=== PATIENT | female | born 1970 | race Caucasian/White ===

== ENCOUNTER 2016-07-28 11:01 | Emergency (ER) | payer BC ==
[2016-07-28] MEDS ORDERED: Ketorolac INJ* 60 MG/2 ML VIAL IM ONE (11:57)
--- NOTE | 2016-07-28 12:31 | RAD ---
INDICATION: Cough. Congestion. COMPARISON: September 30, 2013 TECHNIQUE: PA and lateral dual-energy views were obtained. FINDINGS: Bones/Soft Tissues: There are no acute bony findings. There is mild kyphoscoliosis. Cardiomediastinal: The cardiomediastinal silhouette is normal. Lungs: There are no infiltrates. Pleura: There are no pleural effusions. Other: None IMPRESSION: NO ACTIVE DISEASE.
[2016-07-28 12:57] VITALS: BP 132/72
--- NOTE | 2016-10-07 10:46 | ED ---
Influenza-Like Illness - HPI Summary HPI Summary: Patient presents with three days of sore throat, cough, and subjective fever. She has been using over the counter medication to manage her symptoms but worries she might have strep throat or pneumonia. She is eating and drinking without difficulty swallowing or breathing. - History of Current Complaint Chief Complaint: EDUpperRespComplaint Time Seen by Provider: 07/28/16 11:39 Hx Obtained From: Patient Onset/Duration: Gradual Onset, Lasting Days, Still Present Severity: Moderate Associated Signs & Symptoms: Cough, Sore Throat, Nasal Congestion Related Hx: Possible Flu/Infectious Exposure - Allergy/Home Medications Allergies/Adverse Reactions: Allergies Allergy/AdvReac Type Severity Reaction Status Date / Time No Known Allergies Allergy Verified 07/28/16 11:08 PMH/Surg Hx/FS Hx/Imm Hx Endocrine/Hematology History: Denies: Hx Diabetes Cardiovascular History: Reports: Hx Hypercholesterolemia, Hx Hypertension - ON MEDS Respiratory History: Reports: Hx Sleep Apnea - HX OF BEFORE BARIATRIC SURGER GI History: Reports: Hx Gastroesophageal Reflux Disease History: Reports: Other Problems/Disorders - stress incontinence Denies: Hx Renal Disease Musculoskeletal History: Reports: Other Musculoskeletal History - HX OF BACKACHES BEFORE BARIATRIC SURGERY IN SEPTEMBER Sensory History: Denies: Hx Contacts or Glasses, Hx Hearing Aid Opthamlomology History: Denies: Hx Contacts or Glasses Psychiatric History: Reports: Hx Depression - ON MEDICATION FOR - Cancer History Hx Chemotherapy: No Hx Radiation Therapy: No - Surgical History Surgery Procedure, Year, and Place: 1992-D&C X 2. 2009 D&C. 10/12/2013 LAPAROSCOPIC GASTRIC BYPASS, [facility] [place] Hx Anesthesia Reactions: No Infectious Disease History: No Infectious Disease History: Denies: Traveled Outside the [place] in Last 30 Days - Family History Known Family History: Positive: None - Social History Occupation: Employed Part-time Lives: With Family Alcohol Use: Occasionally Alcohol Amount: SOCIALLY Substance Use Type: Reports: None Hx Tobacco Use: Yes Smoking Status (MU): Never Smoked Tobacco Have You Smoked in the Last Year: No Review of Systems Positive: Chills, Fatigue. Negative: Fever Positive: Sore Throat, Nasal Discharge Negative: Chest Pain Positive: Cough. Negative: Shortness Of Breath Negative: Vomiting, Diarrhea, Nausea Negative: Myalgia Negative: Headache, Weakness All Other Systems Reviewed And Are Negative: Yes Physical Exam Triage Information Reviewed: Yes Vital Signs On Initial Exam: Initial Vitals Temp Pulse Resp BP Pulse Ox 98.2 F 64 16 137/76 100 07/28/16 11:09 07/28/16 11:09 07/28/16 11:09 07/28/16 11:09 07/28/16 11:09 Vital Signs Reviewed: Yes Appearance: Positive: Well-Appearing, No Pain Distress, Well-Nourished Skin: Positive: Warm, Skin Color Reflects Adequate Perfusion, Dry, Soft Head/Face: Positive: Normal Head/Face Inspection Eyes: Positive: EOMI, TRINI, Conjunctiva Clear ENT: Positive: Hearing grossly normal, Pharyngeal erythema, Nasal congestion, TMs normal. Negative: Tonsillar swelling, Tonsillar exudate, Trismus, Muffled/ hoarse voice Neck: Positive: Supple, Nontender, No Lymphadenopathy Respiratory/Lung Sounds: Positive: Clear to Auscultation, Breath Sounds Present Cardiovascular: Positive: RRR Abdomen Description: Positive: Nontender, Soft Bowel Sounds: Positive: Present Musculoskeletal: Negative: Edema Left, Edema Right Neurological: Positive: Sensory/Motor Intact, Alert, Oriented to Person Place, Time, [place] Bundle Intact Distally, Normal Gait Psychiatric: Positive: Affect/Mood Appropriate AVPU Assessment: Alert - [place] Coma Scale Coma Scale Total: 15 Diagnostics - Vital Signs Vital Signs Temp Pulse Resp BP Pulse Ox 07/28/16 12:55 98.2 F 64 20 132/72 07/28/16 11:09 98.2 F 64 16 137/76 100 - Laboratory Lab Results: Lab Results 07/28/16 Range/Units 11:12 Group A Strep Rapid Negative (Negative) Lab Statement: Any lab studies that have been ordered have been reviewed, and results considered in the medical decision making process. - Radiology No standard instances Xray Interpretation: No Acute Changes Radiology Interpretation Completed By: Radiologist Flu Symptom Course/Dx - Diagnoses Differential Diagnosis/HQI/PQRI: Positive: Bronchitis, Influenza, Pneumonia, Upper Respiratory Infection Provider Diagnoses: Pharyngitis Discharge - Discharge Plan Condition: Stable Disposition: HOME Patient Education Materials: Pharyngitis (ED) Referrals: Fredi Warren MD [Primary Care Provider] - Additional Instructions: Please treat your symptoms with over the counter medication. Follow-up with your PCP if your symptoms do not begin to improve in 3-5 days. Return to the emergency department if symptoms worsen.
== END 2016-07-28 12:55 | disposition home or self-care (01) ==
LOC: ED 11:01
DX: J02.9 Acute pharyngitis, unspecified (principal)
CPT/HCPCS: 71020; 87651; 96372; 99282; J1885

== ENCOUNTER 2016-10-22 17:24 | Emergency (ER) | payer BC ==
[2016-10-22] MEDS ORDERED: NS 0.9% 1000 ML* 2,000 ML IV ONE (17:34)
--- NOTE | 2016-10-22 18:07 | ED ---
Syncope/Near Syncope - HPI Summary HPI Summary: PT BIBA AFTER DRINKING ALCOHOL AND SITTING IN SUN ON A BOAT ALL DAY. PT PASSED OUT X2 HER DAUGHTER STATES, PT DIDN'T AROUSE FOR 5 MINS DURING FIRST SYNCOPAL EPISODE BUT WOKE RIGHT UP AFTER SECOND EPISODE. IT IS UNKNOWN AMOUNT OF ALCOHOL CONSUMED. DAUGHTER STATES AFTER FIRST SYNCOPAL EPISODE THEY PLACED HER IN THE WATER HOPING SHE WOULD AROUSE, BUT SHE DID NOT. UPON GETTING BACK INTO THE BOAT, SHE DID AROUSE AND WAS TALKING FOR APPROX [address] WAY [place], SHE HAD ANOTHER SYNCOPAL EPISODE AND SHE WAS ABLE TO BE AROUSED AGAIN BUT FOR A BRIEF PERIOD OF TIME. SHE IS A & O X 3 ON ARRIVAL TO THE ED, BUT TEARFUL. SHE STATES SHE IS DEHYDRATED. DENIES OTHER DRUG USE. SHE WAS OUT IN THE SUN FOR APPROX 4 HOURS PER HER DAUGHTER. SHE DENIES HEALTH PROBLEMS OTHER THAN PREVIOUS BARIATRIC SURGERY. PATIENT AND DAUGHTER BOTH STATE SHE DID NOT HIT HER HEAD OR HAVE ANY ASSOCIATED TRAUMA. - History Of Current Complaint Chief Complaint: EDGeneral Time Seen by Provider: 10/22/16 17:31 Hx Obtained From: Patient Onset/Duration: Sudden Onset Timing: Constant Context: Witnessed, Loss Of Consciousness Associated Head Trauma: No Aggravating Factor(s): Nothing Alleviating Factor(s): Spontaneous Resolution Associated Signs And Symptoms: Lightheadedness - Risk Factors Cardiac Risk Factors: Negative Dysrhythmia Risk Factors: Age Greater Than 45 Risk Factor(s): Negative - Allergies/Home Medications Allergies/Adverse Reactions: Allergies Allergy/AdvReac Type Severity Reaction Status Date / Time No Known Allergies Allergy Verified 07/28/16 11:08 PMH/Surg Hx/FS Hx/Imm Hx Previously Healthy: Yes Endocrine/Hematology History: Denies: Hx Diabetes Cardiovascular History: Reports: Hx Hypercholesterolemia, Hx Hypertension - ON MEDS Respiratory History: Reports: Hx Sleep Apnea - HX OF BEFORE BARIATRIC SURGER GI History: Reports: Hx Gastroesophageal Reflux Disease History: Reports: Other Problems/Disorders - stress incontinence Denies: Hx Renal Disease Musculoskeletal History: Reports: Other Musculoskeletal History - HX OF BACKACHES BEFORE BARIATRIC SURGERY IN SEPTEMBER Sensory History: Denies: Hx Contacts or Glasses Opthamlomology History: Denies: Hx Contacts or Glasses Psychiatric History: Reports: Hx Depression - ON MEDICATION FOR - Cancer History Hx Chemotherapy: No Hx Radiation Therapy: No - Surgical History Surgery Procedure, Year, and Place: 1993-D&C X 2. 2009 D&C. 10/12/2013 LAPAROSCOPIC GASTRIC BYPASS, [facility] Hx Anesthesia Reactions: No - Immunization History Hx Pertussis Vaccination: No Immunizations Up to Date: Unable to Obtain/Confirm Infectious Disease History: No Infectious Disease History: Denies: Traveled Outside the [place] in Last 30 Days - Family History Known Family History: Positive: None - Social History Occupation: Employed Full-time Lives: With Family Alcohol Use: Occasionally Alcohol Amount: SOCIALLY Hx Substance Use: No Substance Use Type: Reports: None Hx Tobacco Use: Yes Smoking Status (MU): Never Smoked Tobacco Have You Smoked in the Last Year: No Review of Systems Constitutional: Negative Eyes: Negative Positive: Palpitations Respiratory: Negative Positive: no symptoms reported, see HPI Musculoskeletal: Negative Positive: Other - SUNBURN THROUGHOUT Positive: Weakness, Syncope Psychological: Normal All Other Systems Reviewed And Are Negative: Yes Physical Exam Triage Information Reviewed: Yes Vital Signs On Initial Exam: Initial Vitals Temp Pulse Resp BP Pulse Ox 98.1 F 54 13 142/89 100 10/22/16 17:29 10/22/16 17:29 10/22/16 17:29 10/22/16 17:29 10/22/16 17:29 Vital Signs Reviewed: Yes Appearance: Positive: Ill-Appearing, Cachectic Skin: Positive: Other - SUNBURN THROUGHOUT Head/Face: Positive: Normal Head/Face Inspection Eyes: Positive: EOMI, TRINI, Conjunctiva Clear Neck: Positive: Supple, Nontender, No Lymphadenopathy Respiratory/Lung Sounds: Positive: Clear to Auscultation, Breath Sounds Present Cardiovascular: Positive: RRR, Pulses are Symmetrical in both Upper and Lower Extremities Abdomen Description: Positive: Nontender, Soft Bowel Sounds: Positive: Present Musculoskeletal: Positive: Normal, Strength/ROM Intact Neurological: Positive: Alert, Oriented to Person Place, Time, Speech Normal Psychiatric: Positive: Normal AVPU Assessment: Alert - [place] Coma Scale Best Eye Response: 4 - Spontaneous Best Motor Response: 6 - Obeys Commands Best Verbal Response: 5 - Oriented Diagnostics - Vital Signs Vital Signs Temp Pulse Resp BP Pulse Ox 10/22/16 17:36 7 10/22/16 17:35 142/89 10/22/16 17:29 98.1 F 54 13 142/89 100 - Laboratory Result Diagrams: 10/22/16 18:35 10/22/16 18:35 Lab Statement: Any lab studies that have been ordered have been reviewed, and results considered in the medical decision making process. Course/Dx Course Of Treatment: PATIENT GIVEN 2L FLUIDS. NOT TACHY ON ARRIVAL. A&O X 3. PATIENT IS MODERATELY DEHYDRATED WITH ETOH TODAY. LABS WNL. UA OK. PATIENT MADE AWARE OF RESULTS. SHE IS OK WITH DISCHARGE AND AGREES TO FOLLOW UP NEEDED. - Diagnoses Differential Diagnosis/HQI/PQRI: Positive: Hypovolemia, Metabolic Reaction, Medication Reaction, Vasovagal Episode Provider Diagnoses: Dehydration Discharge - Discharge Plan Condition: Stable Disposition: HOME Patient Education Materials: Dehydration (ED) Referrals: Fredi Warren MD [Primary Care Provider] - Additional Instructions: Follow up as needed. Drink plenty of fluids - gatorade would be the best for today. If you develop any worsening sxs, return to ED immediately.
[2016-10-22 19:10] LABS: Urine Bilirubin Negative (Negative); Urine Glucose Negative (Negative); Urine Nitrite Negative (Negative)
[2016-10-22 19:23] LABS: Albumin 3.8 g/dL (3.2-5.2); BUN/Creatinine Ratio 12.5 (8-20); EGFR African American 149.2 (>60); Globulin 2.3 g/dL (2-4); Hematocrit 36 % (35-47); Hemoglobin 12.1 g/dl (12.0-16.0); Mean Corpuscular HGB Conc 34 g/dl (31-36); Mean Corpuscular Hemoglobin 32 pg (27-31); Mean Corpuscular Volume 93 fL (80-97); Mean Platelet Volume 9 um3 (7.4-10.4); Potassium 4.1 mmol/L (3.5-5.0); Red Blood Count 3.86 10^6/ul (4.0-5.4); Red Cell Distribution Width 13 % (10.5-15); Total Bilirubin 0.7 mg/dL (0.2-1.0); Total Protein 6.1 g/dL (6.4-8.9); White Blood Count 4.1 10^3/ul (3.5-10.8)
[2016-10-22 19:34] VITALS: BP 135/81
== END 2016-10-22 19:41 | disposition home or self-care (01) ==
LOC: ED 17:24
DX: E86.0 Dehydration (principal); E78.00 Pure hypercholesterolemia, unspecified; I10 Essential (primary) hypertension; F32.9 Major depressive disorder, single episode, unspecified; G47.30 Sleep apnea, unspecified; K21.9 Gastro-esophageal reflux disease without esophagitis
CPT/HCPCS: 36415; 80053; 81003; 85025; 93005; 96360; 99282

== ENCOUNTER 2016-11-19 05:32 | Inpatient (IN) | payer BC ==
[2016-11-19] MEDS ORDERED: Morphine INJ* 4 MG/ML 1 ML SYRINGE IV ONE ×2 (06:38→08:35)
[2016-11-19] MEDS ORDERED: NS 0.9% 1000 ML* 1,000 ML IV ONE (06:38)
[2016-11-19] MEDS ORDERED: Ketorolac INJ* 30 MG/ML 1 ML VIAL IV PUSH ONE (06:41)
[2016-11-19] MEDS ORDERED: Ondansetron INJ* 2 MG/ML VIAL IV ONE (06:42)
[2016-11-19 06:59] LABS: Hematocrit 46 % (35-47); Hemoglobin 15.5 g/dl (12.0-16.0); Mean Corpuscular HGB Conc 34 g/dl (31-36); Mean Corpuscular Hemoglobin 31 pg (27-31); Mean Corpuscular Volume 91 fL (80-97); Mean Platelet Volume 10 um3 (7.4-10.4); Red Blood Count 5.05 10^6/ul (4.0-5.4); Red Cell Distribution Width 12 % (10.5-15); White Blood Count 6.7 10^3/ul (3.5-10.8)
[2016-11-19 07:11] LABS: Albumin 3.2 g/dL (3.2-5.2); BUN/Creatinine Ratio 22.4 (8-20); Calcium 8.2 mg/dL (8.6-10.3); EGFR African American 121.3 (>60); EGFR Non-African American 94.3 (>60); Globulin 2.4 g/dL (2-4); Potassium 4.3 mmol/L (3.5-5.0); Total Bilirubin 0.5 mg/dL (0.2-1.0); Total Protein 5.6 g/dL (6.4-8.9)
[2016-11-19 07:20] LABS: Troponin I 1.54 ng/mL (<0.04)
[2016-11-19] MEDS ORDERED: Aspirin Low Dose CHEW TAB* 81 MG PO ONE (07:21)
[2016-11-19] MEDS ORDERED: Iohexol 350* (CONTRAST) 500 ML MDV IV ONE (07:46)
[2016-11-19 07:49] LABS: C Reactive Protein 76.42 mg/L (< 5.00)
--- NOTE | 2016-11-19 08:07 | RAD ---
INDICATION: Shortness of breath and chest pain COMPARISON: Most recent comparison chest x-rays dated July 28, 2016 TECHNIQUE: PA and lateral views of the chest were obtained. FINDINGS: The heart and mediastinum are normal in size and contour. The lungs are grossly clear. There is no evidence of large pleural effusion. Visualized bones are normal for the patient's age. There is no radiographic evidence of free air beneath the diaphragm IMPRESSION: No radiographic evidence of acute cardiopulmonary disease.
--- NOTE | 2016-11-19 09:13 | RAD ---
INDICATION: Back pain lumbar spine. COMPARISON: Comparison is made with a prior CT of the abdomen and pelvis from October 03, 2014. TECHNIQUE: Contiguous axial sections were obtained beginning above the T12 vertebra and continuing through the L5-S1 disc space. Images were reconstructed in the sagittal and coronal planes. FINDINGS: The vertebra are in normal alignment. No fracture is seen. At the L3-L4 level there is a mild broad-based disc bulge and mild hypertrophic changes within the facet joints. No significant spinal canal narrowing is present. There is mild bilateral neural foraminal narrowing. At the L4-L5 level there is a mild broad-based disc bulge and mild hypertrophic changes within the facet joints. No significant spinal canal narrowing is present. There is mild bilateral neural foraminal narrowing. At the L5-S1 level there is a [id number] broad-based disc bulge. No significant spinal canal narrowing is present. There is mild to moderate bilateral neural foraminal narrowing. On images through the lung bases there appears to be a pericardial effusion which is not completely imaged on this study. IMPRESSION: 1. NO EVIDENCE FOR FRACTURE. 2. MILD LUMBAR SPONDYLOSIS, IF THE PATIENT'S SYMPTOMS PERSIST CONSIDER MR IMAGING. 3. THERE APPEARS TO BE A PERICARDIAL EFFUSION WHICH IS PARTIALLY SEEN ON IMAGES THROUGH THE LUNG BASES.
--- NOTE | 2016-11-19 09:25 | RAD ---
Indication: Shortness of breath, chest pain. Contrast: Administered 59.0 ml of OMNIPAQUE 350 mg/ml CTA of the chest was performed after IV contrast administration. Coronal and sagittal reconstructed images were obtained. The pulmonary arterial tree is well opacified. There are no filling defects present to suggest pulmonary embolus. The aorta demonstrates no evidence of aortic dissection. No a residual dilatation of the thoracic aorta is noted. The heart is of normal size and configuration. There is no mediastinal or hilar adenopathy noted. The trachea and major bronchi appear patent. The lung bases demonstrate no alveolar consolidation. No pleural fluid is identified. No focal nodules are noted. Dependent changes are noted in the lung shoemaker. IMPRESSION: No evidence of pulmonary embolus is noted. No evidence of alveolar consolidation is noted.
[2016-11-19] MEDS ORDERED: Heparin DRIP 25,000 UNITS(*) 25,000 UNITS/500 ML BAG IVPB SCH (10:15)
[2016-11-19] MEDS ORDERED: Nitroglycerin TAB 0.4 MG* 0.4 MG TAB SL PRN (10:15)
[2016-11-19 10:44] LABS: HDL Cholesterol 42.9 mg/dL
[2016-11-19] MEDS ORDERED: NS 0.45% 1000 ML BAG* 1,000 ML IV SCH (10:55)
[2016-11-19] MEDS ORDERED: diPHENhydraMINE PO* 50 MG PO ONE (10:55)
[2016-11-19] MEDS ORDERED: Diazepam TAB(*) 5 MG PO ONE (10:55)
[2016-11-19] MEDS ORDERED: Heparin VIAL(*) 5000 UNITS/ML VIAL (FIVE THOUSAND) IV SCH (11:00)
--- NOTE | 2016-11-19 11:50 | ED ---
Osmel Sanon Alok, scribed for Sin Jorge MD on 11/19/16 at 0700 . Complex/Multi-Sys Presentation - HPI Summary HPI Summary: 46F presents to the ED with SOB, CP, and bilateral shoulder pain radiating down her arms since last night. Pt states her SOB is present at rest and worse with exertion. Pt was last seen at the ED yesterday for right lower extremity edema for the last week and had US done before being discharged home. Pt also notes edema below her left lateral rib area. Pt also notes mid-back pain which improves with rest and heat. Pt denies direct trauma. PMHx/PSHx includes HTN, HLD and gastric bypass 2013. Pt drinks ETOH occasionally. Pt has NKDA. - History Of Current Complaint Chief Complaint: EDShortnessOfBreath Time Seen by Provider: 11/19/16 06:20 Hx Obtained From: Patient Onset/Duration: Still Present Timing: Constant Severity Currently: Moderate Severity Initially: Moderate Location: Pain At: - back, shoulders, chest, Radiates To: - arms Aggravating Factor(s): exertion Alleviating Factor(s): rest, heat Associated Signs And Symptoms: Positive: SOB, Chest Pain, Edema, Back Pain - Allergies/Home Medications Allergies/Adverse Reactions: Allergies Allergy/AdvReac Type Severity Reaction Status Date / Time No Known Allergies Allergy Verified 07/28/16 11:08 PMH/Surg Hx/FS Hx/Imm Hx Endocrine/Hematology History: Denies: Hx Diabetes Cardiovascular History: Reports: Hx Hypercholesterolemia, Hx Hypertension - ON MEDS Respiratory History: Reports: Hx Sleep Apnea - HX OF BEFORE BARIATRIC SURGER GI History: Reports: Hx Gastroesophageal Reflux Disease History: Reports: Other Problems/Disorders - stress incontinence Denies: Hx Renal Disease Musculoskeletal History: Reports: Other Musculoskeletal History - HX OF BACKACHES BEFORE BARIATRIC SURGERY IN SEPTEMBER Sensory History: Denies: Hx Contacts or Glasses Opthamlomology History: Denies: Hx Contacts or Glasses Psychiatric History: Reports: Hx Depression - ON MEDICATION FOR - Cancer History Hx Chemotherapy: No Hx Radiation Therapy: No - Surgical History Surgery Procedure, Year, and Place: 1992-D&C X 2. 2008 D&C. 10/12/2013 LAPAROSCOPIC GASTRIC BYPASS, [facility] [place] Hx Anesthesia Reactions: No Infectious Disease History: No Infectious Disease History: Denies: Traveled Outside the [place] in Last 30 Days - Family History Known Family History: Negative: Cardiac Disease, Hypertension, Diabetes - Social History Occupation: Employed Part-time Lives: With Family Alcohol Use: Occasionally Alcohol Amount: SOCIALLY Hx Substance Use: No Substance Use Type: Reports: None Hx Tobacco Use: Yes Smoking Status (MU): Never Smoked Tobacco Have You Smoked in the Last Year: No Review of Systems Negative: Fever Positive: Chest Pain Positive: Shortness Of Breath Positive: Edema, Other - shoudler pain, back pain All Other Systems Reviewed And Are Negative: Yes Physical Exam - Summary Physical Exam Summary: The patient is well-nourished in no acute distress. The skin is warm and dry and skin color reflects adequate perfusion. HEENT: The head is normocephalic and atraumatic. The pupils are equal and reactive. The conjunctivae are clear and without drainage. Nares are patent and without drainage. Mouth reveals moist mucous membranes and the throat is without erythema and exudate. The external ears are intact. The ear canals are patent and without drainage. The tympanic membranes are intact. Neck is supple with full range of motion and non-tender. There are no carotid bruits. There is no neck vein distension. Respiratory: Chest is non-tender. Lungs are clear to auscultation and breath sounds are symmetrical and equal. There are no rales, rhonchi, or wheezing. Cardiovascular: Heart is regular rate and rhythm. There is no murmur or rub auscultated. There is no peripheral edema and pulses are symmetrical and equal. Abdomen: The abdomen is soft and non-tender. There are normal bowel sounds heard in all four quadrants and there is no organomegaly palpated. Musculoskeletal: There is positive bilateral paratubal musculatura lumbar spine tenderness. Extremities are non-tender with full range of motion. There is good capillary refill. There is no calf tenderness elicited. Soft tissue swelling on left lateral rib area which is not a solid collection of fluid. There is no pulsatile mass. There is a marked right lower extremity edema. Neurological: Patient is cooperative, alert and oriented to person, place and time. The patient has symmetrical motor strength in all four extremities. Cranial nerves are grossly intact. Deep tendon reflexes are symmetrical and equal in all four extremities. Psychiatric: The patient has an appropriate affect and does not exhibit any anxiety or depression. Triage Information Reviewed: Yes Vital Signs On Initial Exam: Initial Vitals Temp Pulse Resp BP Pulse Ox 98.1 F 89 16 113/76 100 11/19/16 05:36 11/19/16 05:36 11/19/16 05:36 11/19/16 05:36 11/19/16 05:36 Vital Signs Reviewed: Yes - [place] Coma Scale Coma Scale Total: 15 Diagnostics - Vital Signs Vital Signs Temp Pulse Resp BP Pulse Ox 11/19/16 06:00 83 15 125/70 99 11/19/16 05:54 83 118/71 98 11/19/16 05:53 88 100 11/19/16 05:36 98.1 F 89 16 113/76 100 - Laboratory Lab Results: Lab Results 11/19/16 11/19/16 11/19/16 Range/Units 06:20 06:20 06:20 WBC 6.7 (3.5-10.8) 10^3/ul RBC 5.05 (4.0-5.4) 10^6/ul Hgb 15.5 (12.0-16.0) g/dl Hct 46 (35-47) % MCV 91 (80-97) fL MCH 31 (27-31) pg MCHC 34 (31-36) g/dl RDW 12 (10.5-15) % Plt Count 190 (150-450) 10^3/ul MPV 10 (7.4-10.4) um3 Neut % (Auto) 86.2 H (38-83) % Lymph % (Auto) 4.5 L (25-47) % Cedar % (Auto) 3.3 (1-9) % Eos % (Auto) 4.9 (0-6) % Baso % (Auto) 1.1 (0-2) % Absolute Neuts (auto) 5.8 (1.5-7.7) 10^3/ul Absolute Lymphs (auto) 0.3 L (1.0-4.8) 10^3/ul Absolute Monos (auto) 0.2 (0-0.8) 10^3/ul Absolute Eos (auto) 0.3 (0-0.6) 10^3/ul Absolute Basos (auto) 0.1 (0-0.2) 10^3/ul Absolute Nucleated RBC 0 10^3/ul Nucleated RBC % 0.1 Sodium 137 (133-145) mmol/L Potassium 4.3 (3.5-5.0) mmol/L Chloride 103 (101-111) mmol/L Carbon Dioxide 27 (22-32) mmol/L Anion Gap 7 (2-11) mmol/L BUN 15 (6-24) mg/dL Creatinine 0.67 (0.51-0.95) mg/dL Est GFR ( Amer) 121.3 (>60) Est GFR (Non-Af Amer) 94.3 (>60) BUN/Creatinine Ratio 22.4 H (8-20) Glucose 107 H (70-100) mg/dL Lactic Acid 1.0 (0.5-2.0) mmol/L Calcium 8.2 L (8.6-10.3) mg/dL Total Bilirubin 0.50 (0.2-1.0) mg/dL AST 97 H (13-39) U/L ALT 44 (7-52) U/L Alkaline Phosphatase 60 (34-104) U/L Total Creatine Kinase 2664 H (10-223) U/L CK-MB (CK-2) 55.8 H (0.6-6.3) ng/mL Troponin I 1.54 H* (<0.04) ng/mL C-Reactive Protein 76.42 H (< 5.00) mg/L B-Natriuretic Peptide ( - 100) pg/mL Total Protein 5.6 L (6.4-8.9) g/dL Albumin 3.2 (3.2-5.2) g/dL Globulin 2.4 (2-4) g/dL Albumin/Globulin Ratio 1.3 (1-3) Triglycerides 89 mg/dL Cholesterol 110 mg/dL LDL Cholesterol 49 mg/dL HDL Cholesterol 42.9 mg/dL 11/19/16 Range/Units 06:20 WBC (3.5-10.8) 10^3/ul RBC (4.0-5.4) 10^6/ul Hgb (12.0-16.0) g/dl Hct (35-47) % MCV (80-97) fL MCH (27-31) pg MCHC (31-36) g/dl RDW (10.5-15) % Plt Count (150-450) 10^3/ul MPV (7.4-10.4) um3 Neut % (Auto) (38-83) % Lymph % (Auto) (25-47) % [place]edar % (Auto) (1-9) % Eos % (Auto) (0-6) % Baso % (Auto) (0-2) % Absolute Neuts (auto) (1.5-7.7) 10^3/ul Absolute Lymphs (auto) (1.0-4.8) 10^3/ul Absolute Monos (auto) (0-0.8) 10^3/ul Absolute Eos (auto) (0-0.6) 10^3/ul Absolute Basos (auto) (0-0.2) 10^3/ul Absolute Nucleated RBC 10^3/ul Nucleated RBC % Sodium (133-145) mmol/L Potassium (3.5-5.0) mmol/L Chloride (101-111) mmol/L Carbon Dioxide (22-32) mmol/L Anion Gap (2-11) mmol/L BUN (6-24) mg/dL Creatinine (0.51-0.95) mg/dL Est GFR ( Amer) (>60) Est GFR (Non-Af Amer) (>60) BUN/Creatinine Ratio (8-20) Glucose (70-100) mg/dL Lactic Acid (0.5-2.0) mmol/L Calcium (8.6-10.3) mg/dL Total Bilirubin (0.2-1.0) mg/dL AST (13-39) U/L ALT (7-52) U/L Alkaline Phosphatase (34-104) U/L Total Creatine Kinase (10-223) U/L CK-MB (CK-2) (0.6-6.3) ng/mL Troponin I (<0.04) ng/mL C-Reactive Protein (< 5.00) mg/L B-Natriuretic Peptide 113 H ( - 100) pg/mL Total Protein (6.4-8.9) g/dL Albumin (3.2-5.2) g/dL Globulin (2-4) g/dL Albumin/Globulin Ratio (1-3) Triglycerides mg/dL Cholesterol mg/dL LDL Cholesterol mg/dL HDL Cholesterol mg/dL Result Diagrams: 11/19/16 06:20 11/19/16 06:20 Lab Statement: Any lab studies that have been ordered have been reviewed, and results considered in the medical decision making process. Complex Multi-Symp Course/Dx - Diagnoses Differential Diagnoses/HQI/PQRI: Cardiac Ischemia, Other - pulmonary embolism, myocardial infarct, lumbar fracture, RDVT Provider Diagnoses: NSTEMI (non-ST elevated myocardial infarction) - Critical Care Time Critical Care Time: 30-74 min - 30 min Discharge - Discharge Plan Condition: Stable Disposition: ADMITTED TO [facility] The documentation as recorded by the Osmel lindsay Alok accurately reflects the service I personally performed and the decisions made by , Sin Jorge MD.
--- NOTE | 2016-11-19 11:51 | ED ---
Stu Sanon Thomas, scribed for Sin Jorge MD on 11/19/16 at 0829 . Progress - Progress Note Progress Note: This is a continuation on a previous note. 46F presents to the ED with SOB, CP, and bilateral shoulder pain radiating down her arms since last night. Pt states her SOB is present at rest and worse with exertion. Pt was last seen at the ED yesterday for right lower extremity edema for the last week and had US done before being discharged home. Pt also notes edema below her left lateral rib area. Pt also notes mid-back pain which improves with rest and heat. Pt denies direct trauma. PMHx/PSHx includes HTN, HLD and gastric bypass 2013. Pt drinks ETOH occasionally. Pt has NKDA. CXR reveals no radiographic evidence of acute cardiopulmonary disease. Bloodwork reveals Troponin I 1.54, BNP 113, Neut % 86.2, Lymph % 4.5, Absolute lymphs 0.3, BUN/Creatinine 22.4, Glucose 107, Calcium 8.2, AST 97, total protein 5.6, CRP 76.42. I consulted with Dr. Estes, hospitalist, at who came to see the patient. She [place] [facility] - Results/Orders Results/Orders: CT L-Spine reveals 1. NO EVIDENCE FOR FRACTURE. 2. MILD LUMBAR SPONDYLOSIS, IF THE PATIENT'S SYMPTOMS PERSIST CONSIDER MR IMAGING. 3. THERE APPEARS TO BE A PERICARDIAL EFFUSION WHICH IS PARTIALLY SEEN ON IMAGES THROUGH THE LUNG BASES. CTA Chest reveals No evidence of pulmonary embolus is noted. No evidence of alveolar consolidation is noted. - EKG/XRAY/CT XRAY: chest Xray Comments: No radiographic evidence of acute cardiopulmonary disease Course/Dx - Course Course Of Treatment: Assessment and Plan: 46F presents to the ED with SOB, CP, and bilateral shoulder pain radiating down her arms since last night. Pt states her SOB is present at rest and worse with exertion. Pt was last seen at the ED yesterday for right lower extremity edema for the last week and had US done before being discharged home. Pt also notes edema below her left lateral rib area. Pt also notes mid-back pain which improves with rest and heat. Pt denies direct trauma. PMHx/PSHx includes HTN, HLD and gastric bypass 2013. Pt drinks ETOH occasionally. Pt has NKDA. CXR reveals no radiographic evidence of acute cardiopulmonary disease. Bloodwork reveals Troponin I 1.54, CKMB 55.8, BNP 113, Neut % 86.2, Lymph % 4.5, Absolute lymphs 0.3, BUN/Creatinine 22.4, Glucose 107, Calcium 8.2, AST 97, total protein 5.6, CRP 76.42. CT L-Spine reveals 1. NO EVIDENCE FOR FRACTURE. 2. MILD LUMBAR SPONDYLOSIS, IF THE PATIENT'S SYMPTOMS PERSIST CONSIDER MR IMAGING. 3. THERE APPEARS TO BE A PERICARDIAL EFFUSION WHICH IS PARTIALLY SEEN ON IMAGES THROUGH THE LUNG BASES. CTA Chest reveals No evidence of pulmonary embolus is noted. No evidence of alveolar consolidation is noted. In the ED course, the patient was given ASA, IV fluids, Toradol, morphine, and Zofran. I consulted with Dr. Estes, hospitalist, at who came to see the patient. She will be admitted [place] [facility]. The patient is admitted to [facility] [place] by [place]. Estes. She is diagnosed with NSTEMI. Pt is agreeable to this plan. - Diagnoses Provider Diagnoses: NSTEMI (non-ST elevated myocardial infarction) - Provider Notifications Discussed Care Of Patient With: Gardenia Estes Time Discussed With Above Provider: 08:18 Instructed by Provider To: Other - Came to see the patient. Discussed patient care. She will admit the patient [place] [facility] The documentation as recorded by the Stu lindsay Thomas accurately reflects the service I personally performed and the decisions made by me, Sin Jroge MD.
--- NOTE | 2016-11-19 12:43 | ECHO ---
Patient: HUNTER CAN [facility] Rec#: [id number] : 1970 Date: 11/19/2016 Age: 46y Height: 157.48 cm / 62.0 in Weight: 56.7 kg / 125.0 lbs Sex: F BSA: 1.57 Room#: -3 Admit Date#: 11/19/2016 Type: Inpatient Referring: Gardenia Estes DO Reading: Nighat Gutierrez MD Thermal Engineer: Fany Morrow RDCS CC: Fredi Warren MD Transthoracic Echocardiogram Indication: SOB, chest pain. BP: 125/70 HR: 68 Rhythm: NSR Findings History: Gastric bypass, MYKE with CPAP, HTN, and HLD, all before surgery. Current ETOH use, and smoker. Technical Comments: The study quality is good. Completed at 1115. Left Ventricle: The left ventricular chamber size is normal. Mild concentric left ventricular hypertrophy is observed. Global left ventricular wall motion and contractility are within normal limits. The left ventricle appears hyperdynamic. The estimated ejection fraction is greater than 65%. There is no consistent Doppler evidence of clinically significant diastolic dysfunction. Left Atrium: The left atrial chamber size is normal. Right Ventricle: Moderator Band present. The right ventricular cavity size is normal. The right ventricular global systolic function is normal. Right Atrium: The right atrial cavity size is normal. There is evidence of an atrial septal aneurysm. No obvious color shunting. Aortic Valve: The aortic valve is trileaflet. There is no evidence of aortic regurgitation. There is no evidence of aortic stenosis. Mitral Valve: The mitral valve leaflets are mildly thickened. There is a trace of mitral regurgitation. There is no evidence of mitral stenosis. Tricuspid Valve: The tricuspid valve leaflets are normal. There is moderate tricuspid regurgitation. The right ventricular systolic pressure is estimated at 39 mmHg. There is evidence of mild pulmonary hypertension. There is no tricuspid stenosis. Pulmonic Valve: The pulmonic valve appears normal. There is a trace pulmonic regurgitation. There is no pulmonic stenosis. Pericardium: There is a small pericardial effusion. There are no signs of significant hemodynamic compromise. There is a circumferential pericardial effusion. Aorta: There is no dilatation of the ascending aorta. There is no dilatation of the aortic arch. There is no dilation of the aortic root. Pulmonary Artery: The main pulmonary artery appears normal. Venous: The inferior vena cava appears normal in size. There is a greater than 50% respiratory change in the inferior vena cava dimension. Summary: There was not any prior study for comparison. Conclusions The left ventricular chamber size is normal. Mild concentric left ventricular hypertrophy is observed. The left ventricle appears hyperdynamic. The estimated ejection fraction is greater than 65%. There is a trace of mitral regurgitation. There is moderate tricuspid regurgitation. There is evidence of mild pulmonary hypertension. There is a small pericardial effusion. There are no signs of significant hemodynamic compromise. Measurements Name Value Normal Range RVIDd (AP) 2D 2.7 cm (0.9 - 2.6) RVDdMajor (2D) 3.3 cm (2.2 - 4.4) RAd ISD 4CH 3.8 cm (3.4 - 4.9) RA (A4C)W 4.3 cm (2.9 - 4.6) IVSd (2D) 1.1 cm (0.6 - 1) LVPWd (2D) 1.1 cm (0.6 - 1) LVIDd (2D) 3.8 cm (3.6 - 5.4) LVIDs (2D) 2.2 cm - LV FS (2D) 42 % (25 - 45) Aortic Annulus 2.1 cm (1.4 - 2.6) Ao root diameter (2D) 3.4 cm (2.1 - 3.5) Ascending Ao 2.9 cm (2.1 - 3.4) Aortic arch 2.5 cm (1.8 - 3.4) LA dimension (AP) 2D 2.6 cm (2.3 - 3.8) LAd ISD 4CH 3.8 cm (2.9 - 5.3) LA ISD 4CH W 4.3 cm (2.5 - 4.5) Name Value Normal Range LA ESV SP 4CH (A/L) 62 ml - LA ESV SP 2CH (A/L) 35 ml - LA ESV BP (A/L) 48 ml - LA ESV BP (A/L) index 30.58 ml/m2 - LA ESV SP 4CH (MOD) 56 ml - LA ESV SP 2CH (MOD) 33 ml - Name Value Normal Range MV E-wave Vmax 0.79 m/sec - MV deceleration time 171.3 msec - MV A-wave Vmax 0.72 m/sec - MV E:A ratio 1.1 ratio - LV septal e' Vmax 0.07 m/sec - LV lateral e' Vmax 0.07 m/sec - LV E:e' septal ratio 11.29 ratio - LV E:e' lateral ratio 11.29 ratio - Name Value Normal Range AV Vmax 1.38 m/sec - AV VTI 25.4 cm - AV peak gradient 7.61 mmHg - AV mean gradient 4.42 mmHg - LVOT Vmax 1.1 m/sec - LVOT VTI 22.53 cm - LVOT peak gradient 4.87 mmHg - LVOT mean gradient 2.59 mmHg - SHELIA Vmax 1.19 m/sec - Name Value Normal Range TR Vmax 3 m/sec - TR peak gradient 36 mmHg - RAP 3 mmHg - RVSP 39 mmHg - IVC diameter 1.3 cm - Name Value Normal Range PV Vmax 1.02 m/sec - PV peak gradient 4.21 mmHg -
[2016-11-19 12:56] LABS: Erythrocyte Sed Rate 8 mm/Hr (0-14)
[2016-11-19] MEDS: Morphine INJ* 4 MG/ML 1 ML SYRINGE IV PRN (13:23)
[2016-11-19] MEDS ORDERED: fentaNYL* 50 MCG/ML 2 ML VIAL (100 MCG VIAL) ONE (15:22)
[2016-11-19] MEDS ORDERED: Lidocaine 1% INJ* 10 MG/ML 30 ML SDV ONE (15:22)
[2016-11-19] MEDS ORDERED: Heparin 2 UNITS/ML IVPREMIX* 3,000 ML IV ONE (15:22)
[2016-11-19] MEDS ORDERED: Midazolam* 1 MG/ML 5 ML VIAL (5 MG) ONE (15:22)
[2016-11-19] MEDS ORDERED: Iohexol 350 (CONTRAST) 200 ML MDV IV ONE (15:22)
[2016-11-19] MEDS ORDERED: Morphine INJ* 10 MG/ML 1 ML SYRINGE ONE (16:29)
[2016-11-19] MEDS ORDERED: Acetaminophen TAB* 325 MG PO PRN (17:43)
[2016-11-19] MEDS ORDERED: NS 0.9% 1000 ML* 1,000 ML IV SCH (17:45)
--- NOTE | 2016-11-19 18:40 | CONS ---
CC: Dr. Estes, Hospitalist Service; Dr. Gutierrez; Dr. Warren * CARDIOLOGY CONSULT: DATE OF CONSULT: 11/19/16 HISTORY OF PRESENT ILLNESS: I was asked by Dr. Estes from the hospitalist service to see this 46-year-old female patient, who came into the emergency room with symptoms of back pain, chest pain, and arm pain. After further evaluation in the emergency room, she had an abnormal troponin initially at 1.54 that was at 6:20 this morning. She also was found to have CK at 2664 and MB of 55.8. Her EKG showed nonspecific ST-T changes without any ST elevation. She had CRP of 76 and BNP of 113. The patient had history of morbid obesity. She had bariatric surgery about 3 years ago and she used to have history of systemic arterial hypertension and hyperlipidemia, before that she was on medical treatment, but apparently has been off medications since her surgery. She gives no history of smoking. No significant drinking. She does not have family history of coronary artery disease and her mom who had history of stents basically. She said she has been doing workout at the gym for most of her life , actually 2 to 3 hours with lifting and exercise activity and weight lifting and yesterday she did as she has been doing, but when she went home, she had chest pain, back pain, arm pain, and continued all through this morning and she decided to come to the emergency room today. She is chest pain free. She did receive some Toradol and morphine and she is pain free. Echocardiogram is in progress. She had a CT scan that showed no evidence of pulmonary embolism and there is no evidence of aortic dissection appreciated. She is chest pain free at the present time. She gives also history of swelling more in the right lower extremity more than the left for a few days, but she gives no fever, no chills, no tachycardia, no palpitation is appreciated. PAST MEDICAL HISTORY: As outlined above. MEDICATIONS: As on outpatient, she takes: 1. Xanax. 2. Lexapro. ALLERGIES: She gives no known allergies. FAMILY HISTORY: She had a family history in her mom with history of angioplasty and stenting with coronary artery disease. SOCIAL HISTORY: She gives no history of smoking. No significant alcohol. No history of illicit drug use. REVIEW OF SYSTEMS: Her review of all other systems essentially is negative. PHYSICAL EXAM: She is awake, alert, and oriented. She had no chest pain at the moment. Vital Signs: Blood pressure is 120/70, pulse 70. She is in sinus rhythm. Head and Neck Exam: Normocephalic, atraumatic head. Ears, nose, and throat essentially benign. Neck: Supple. JVP is not elevated. No carotid bruits. No masses in the neck are appreciated. Chest: Clear to auscultation. No rales, no wheezes, no added sounds are appreciated. Heart: Normal. Regular S1, S2. No added sounds, no gallops, no rubs. Abdomen: Benign, soft, positive bowel sounds. Extremities: No edema, no cyanosis, no clubbing. Skin Exam: Normal. Psych: Normal affect and mood. LASER SYSTEMS ENGINEER: No focal deficits appreciated. DIAGNOSTIC STUDIES/LAB DATA: Her EKG showed her to be in normal sinus rhythm and nonspecific ST flattening more inferiorly. Her echocardiogram is in progress at the present time. Her labs showed sodium 137, potassium 4.3, chloride 103, BUN 15, creatinine 0.67. Her AST 97, ALT 44. Total CK 2646, MB 55.8. Troponin 1.54. BNP 113. Her triglycerides 89, cholesterol 110, LDL 49, and HDL 43. White blood cell is 6.7, hemoglobin 15.5, hematocrit 46, and platelets 190. IMPRESSION: The patient is a 46-year-old female with: 1. Presentation with symptoms of chest pain, back pain, arm pain, and significantly abnormal CK and CK-MB and mildly elevated troponin. Concerns for acute coronary syndrome versus rhabdomyolysis versus myopericarditis. The echo to be further evaluated. 2. History of morbid obesity. She is status post bariatric surgery 3 years ago. 3. History of systemic arterial hypertension and hyperlipidemia. Before her bariatric surgery, she used to be on medical treatment. 4. Nonspecific EKG abnormalities. 5. Family history of coronary artery disease. PLAN: Based on the above for further evaluation, her echocardiogram will be further evaluated for a left ventricular systolic function, pericardial effusion , valvular disease, and also to further evaluate for definite answer, a cardiac catheterization based on her symptoms, abnormal CK, abnormal troponin, is recommended. I discussed benefits, risks with the patient. She is willing to proceed. Any further recommendations would be pending her cardiac catheterization. I understand aspirin was given in the emergency room and she has no active chest pain at the moment. She will be observed and followed very closely for further recommendations. I answered all their concerns and questions up to their satisfaction. Thank you very much for asking us to participate in the care of this patient. [id number]/JERONIMO #: [id number] KALIAD
[2016-11-19] MEDS: oxyCODONE/Acetamin 5/325 MG* TAB PO PRN (19:42)
--- NOTE | 2016-11-19 22:17 | HP ---
CC: Dr. Warren * HISTORY AND PHYSICAL: DATE OF ADMISSION: 11/19/16 PRIMARY CARE PROVIDER: Dr. Warren. CHIEF COMPLAINT: Back and chest pain and bilateral shoulder pain. HISTORY OF PRESENT ILLNESS: Ms. 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 The patient states that this past Friday she noted that her right calf was much more swollen than the left. There is a question whether or not this was maybe swollen dating back to this past Friday. She underwent Doppler evaluation of the extremity which did not reveal any evidence of DVT, but did reveal evidence of a Anthony's cyst. The patient went to the gym where she did a one hour Bodystep class and a one hour Bodypump class. Patient states that following that she went home and began to have mild discomfort in her chest and shoulders, radiating down into her arm and her back. She states that over the course of the evening she had started taking more and more of Motrin. She does state that initially she felt that this was likely related to perhaps more exertional exercise session than usual. The patient states this morning, however, she developed severe shortness of breath while in the shower. The patient has never experienced anything like this in the past. She denies any fever, chills or cough. In addition to having the back discomfort, which is low and described as spasm, she has a still heavy chest discomfort in the center of her chest. The patient presented to the emergency room for evaluation. PAST MEDICAL HISTORY: 1. Hypertension - not on any medications following gastric bypass. 2. Hyperlipidemia, off medication following gastric bypass. PAST SURGICAL HISTORY: 1. Devin-en-Y. 2. Lipoma removal, left mid abdomen. ALLERGIES: No known drug allergies. MEDICATIONS: 1. Xanax 0.25 mg p.o. daily. 2. Lexapro 20 mg p.o. daily. FAMILY HISTORY: Mom is living, she is 83. She has a history of Parkinson's, dementia, hypothyroidism, hyperlipidemia, hypertension, and coronary artery disease. Dad is also living, he is 82. He has a history of rheumatic fever, hypertension, and hyperlipidemia. SOCIAL HISTORY: The patient is a nonsmoker. She drinks alcohol on occasion. 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 She is . Her , Jayy, is her healthcare proxy. She has 4 biologic children and 6 children including her step-children. REVIEW OF SYSTEMS: No fevers, chills or anorexia. She admits to chest discomfort noted this morning. She noted pounding of her heart this morning while in the shower. She admits to shortness of breath, but no cough. No nausea, vomiting, abdominal pain, constipation, diarrhea or hematochezia. No dysuria. No focal weakness or sensory loss. No sudden change in vision. No dysphagia. She does have a rash noted to her upper back and shoulders that she believes is related to a lotion that she used. She had been using triamcinolone cream. She admits to history of anxiety and depression. PHYSICAL EXAMINATION VITAL SIGNS: Blood pressure 127/76, pulse 70, respirations 15, temperature 98.1 , O2 sat 96% on room air. GENERAL: The patient is a well-developed, middle aged female, sitting in a stretcher, in no acute distress. HEENT: Pupils are equal and round. Extraocular muscles are intact. Oropharynx is clear. Oral mucosa is moist. There is no submandibular, cervical or supraclavicular adenopathy. Thyroid is not enlarged. No thyroid nodules noted. PULMONARY: Lungs are clear to auscultation bilaterally. CARDIAC: Normal S1, S2. Regular rate and rhythm. I do not appreciate any murmurs. There is noticeable enlargement of the right lower extremity compared to left, though this is non-pitting edema. ABDOMEN: Bowel sounds present. Abdomen is soft, nontender, nondistended. MUSCULOSKELETAL: There is no cyanosis or clubbing of the digits. There is full active range of motion. SKIN: Warm and dry. There is few erythematous papules on the patient's upper back with evidence of excoriation. NEURO: Cranial nerves II through XII are grossly intact. Sensation is intact to light touch throughout. Strength is 5/5 and symmetric in both upper and lower extremities bilaterally. PSYCH: The patient is alert. She is oriented x3. Affect appears appropriate. LABORATORY DATA/DIAGNOSTIC STUDIES: WBC 6.7, hemoglobin 15.5, hematocrit 46, platelets 190. Sodium 137, potassium 4.3, chloride 103, CO2 of 27, BUN 15, creatinine 0.67, glucose 107, lactic acid 1.0, calcium 8.2. Bilirubin 0.5, AST 97, ALT 44, alk phos 60, CPK 2664, CK-MB 55.8. Troponin 1.54, up to 1.76. CRP 76.42. BNP 113. Albumin 3.2, triglyceride 89, cholesterol 110, LDL 49, HDL 42.9. EKG reveals nonspecific ST-T wave changes in the inferior leads and otherwise no acute findings. The patient is in sinus rhythm. Chest x-ray - no radiographic evidence of acute cardiopulmonary disease. CTA chest - no evidence of pulmonary embolism. No evidence of alveolar consolidation. Lumbar spine CT - no evidence of fracture, mild lumbar spondylosis. ASSESSMENT AND PLAN: Ms. Naylor is a 46-year-old female who presented to the emergency room with very profound chest pain, back pain, bilateral arm pain, as well as shortness of breath on the morning of admission, was founded to have an elevated troponin and nonspecific changes on EKG. 1. Non-ST elevation myocardial infarction: Patient's CPK and CK-MB seem dramatically out of proportion to patient's troponin; however, given her symptoms and elevated troponin, I do feel that it is prudent to get a Cardiology evaluation. She will be placed on a heparin drip for now. A transthoracic echocardiogram has been ordered. Of note, the lumbar spine CT did catch part of the pericardium and a small pericardial effusion was noted. An echocardiogram will be asked to evaluate the size of the pericardial effusion. The patient CRP is elevated, so perhaps this could be a mild pericarditis causing her symptoms. The patient will be admitted and monitored. Further recommendations from Dr. Gutierrez will be followed. 2. DVT prophylaxis: According to the Adult Thrombosis Prophylaxis Risk Factor Assessment Guide, the patient has a total risk factor score of 1, making her low risk. She is already going to be on heparin drip and this will act as her DVT prophylaxis. 3. Code status is full and, again, the patient indicates that her , Jayy , is her health care proxy. TIME SPENT: Sixty-five minutes were spent admitting this patient. [id number]/[facility] #: [id number] [facility]
[2016-11-20] MEDS: oxyCODONE/Acetamin 5/325 MG* TAB PO PRN ×3 (01:41→18:50)
[2016-11-20 05:28] LABS: Troponin I 2.69 ng/mL (<0.04)
[2016-11-20] MEDS: ALPRAZolam TAB* 0.25 MG PO SCH (07:22)
[2016-11-20] MEDS: Citalopram TAB* 40 MG PO SCH (07:22)
[2016-11-20] MEDS: Morphine INJ* 4 MG/ML 1 ML SYRINGE IV PRN (07:25)
[2016-11-20 11:25] LABS: BUN/Creatinine Ratio 25.8 (8-20); Calcium 7.8 mg/dL (8.6-10.3); EGFR African American 123.5 (>60)
--- NOTE | 2016-11-20 11:33 | PN ---
Subjective Date of Service: 11/20/16 Interval History: Pt states she feels like she was hit by a truck. She does not specifically complain of chest pain but diffuse body aches. She does not have any SOB at rest. She notes that her R LE remains more swollen than the L. Objective Active Medications: Acetaminophen (Tylenol Tab*) 650 mg PO Q4H PRN PRN Reason: PAIN - MILD Alprazolam (Xanax Tab*) 0.25 mg PO DAILY [facility] Last Admin: 11/20/16 07:22 Dose: 0.25 mg Citalopram Hydrobromide (Celexa Tab*) 40 mg PO QAM [facility] Last Admin: 11/20/16 07:22 Dose: 40 mg Sodium Chloride (Ns 0.9% 1000 Ml*) 1,000 mls @ 150 mls/hr IV PER RATE [facility] Morphine Sulfate (Morphine Inj (Syringe)*) 4 mg IV Q4H PRN PRN Reason: PAIN Last Admin: 11/20/16 07:25 Dose: 4 mg Nitroglycerin (Nitroglycerin Tab 0.4 Mg*) 0.4 mg SL Q5M PRN PRN Reason: ANGINA Oxycodone/Acetaminophen (Percocet 5/325 Tab*) 1 tab PO Q6H PRN PRN Reason: PAIN - SEVERE Last Admin: 11/20/16 01:41 Dose: 1 tab Vital Signs 11/19/16 11/19/16 11/19/16 11:31 12:14 13:23 Temperature 98.1 F Pulse Rate 78 Respiratory 20 15 20 Rate Blood Pressure 117/81 (mmHg) O2 Sat by Pulse 98 Oximetry 11/19/16 11/19/16 11/19/16 14:23 15:19 15:30 Temperature 100.4 F Pulse Rate 83 Respiratory 16 20 18 Rate Blood Pressure 136/70 (mmHg) O2 Sat by Pulse 98 Oximetry 11/19/16 11/19/16 11/19/16 17:05 17:30 17:37 Temperature 98.1 F Pulse Rate 82 85 Respiratory 14 16 Rate Blood Pressure 123/71 112/69 (mmHg) O2 Sat by Pulse 97 99 Oximetry 11/19/16 11/19/16 11/19/16 17:49 18:00 18:03 Temperature Pulse Rate 86 82 84 Respiratory 14 13 13 Rate Blood Pressure 109/70 115/75 (mmHg) O2 Sat by Pulse 93 94 92 Oximetry 11/19/16 11/19/16 11/19/16 18:18 18:26 18:33 Temperature 98.1 F Pulse Rate 83 82 80 Respiratory 17 Rate Blood Pressure 109/64 123/71 115/72 (mmHg) O2 Sat by Pulse 96 97 93 Oximetry 11/19/16 11/19/16 11/19/16 18:48 18:54 19:00 Temperature Pulse Rate 87 84 80 Respiratory Rate Blood Pressure 116/67 116/64 (mmHg) O2 Sat by Pulse 94 94 94 Oximetry 11/19/16 11/19/16 11/19/16 19:18 19:42 19:48 Temperature Pulse Rate 82 93 Respiratory 18 Rate Blood Pressure 110/74 131/70 (mmHg) O2 Sat by Pulse 94 95 Oximetry 11/19/16 11/19/16 11/19/16 20:00 20:18 20:41 Temperature Pulse Rate 96 87 87 Respiratory 16 Rate Blood Pressure 114/72 133/69 (mmHg) O2 Sat by Pulse 96 94 93 Oximetry 11/19/16 11/19/16 11/19/16 21:00 21:18 21:42 Temperature Pulse Rate 83 78 Respiratory 16 Rate Blood Pressure 126/70 (mmHg) O2 Sat by Pulse 92 93 Oximetry 11/19/16 11/19/16 11/19/16 22:00 22:18 23:00 Temperature Pulse Rate 84 81 84 Respiratory Rate Blood Pressure 101/59 (mmHg) O2 Sat by Pulse 95 95 94 Oximetry 11/19/16 11/20/16 11/20/16 23:18 00:00 00:04 Temperature 98.7 F Pulse Rate 92 82 82 Respiratory 16 Rate Blood Pressure 117/66 (mmHg) O2 Sat by Pulse 95 94 93 Oximetry 11/20/16 11/20/16 11/20/16 00:18 01:00 01:18 Temperature Pulse Rate 83 84 90 Respiratory Rate Blood Pressure 109/57 116/53 (mmHg) O2 Sat by Pulse 94 94 95 Oximetry 11/20/16 11/20/16 11/20/16 01:41 02:00 03:00 Temperature Pulse Rate Respiratory 18 21 16 Rate Blood Pressure (mmHg) O2 Sat by Pulse Oximetry 11/20/16 11/20/16 11/20/16 03:20 03:41 04:00 Temperature 99.0 F Pulse Rate 86 Respiratory 18 16 17 Rate Blood Pressure 112/72 (mmHg) O2 Sat by Pulse 96 Oximetry 11/20/16 11/20/16 11/20/16 07:22 07:25 07:29 Temperature 98.9 F Pulse Rate 94 Respiratory 14 14 16 Rate Blood Pressure 94/68 (mmHg) O2 Sat by Pulse 100 Oximetry 11/20/16 11/20/16 07:45 08:25 Temperature Pulse Rate Respiratory 14 12 Rate Blood Pressure (mmHg) O2 Sat by Pulse Oximetry Oxygen Devices in Use Now: None Appearance: Middle aged female sitting up in bed, NAD Eyes: No Scleral Icterus Ears/Nose/Mouth/Throat: Mucous Membranes Moist Respiratory: Symmetrical Chest Expansion and Respiratory Effort, Clear to Auscultation Cardiovascular: NL Sounds; No Murmurs; No JVD, RRR, No Edema Abdominal: NL Sounds; No Tenderness; No Distention Extremities: No Clubbing, Cyanosis, - - R LE > in diameter than L LE Skin: No Rash or Ulcers, No Nodules or Sclerosis Neurological: Alert and Oriented x 3 Result Diagrams: 11/19/16 06:20 11/20/16 04:52 Additional Lab and Data: Lab Results 11/19/16 11/19/16 11/19/16 Range/Units 06:20 06:20 06:20 WBC 6.7 (3.5-10.8) 10^3/ul RBC 5.05 (4.0-5.4) 10^6/ul Hgb 15.5 (12.0-16.0) g/dl Hct 46 (35-47) % MCV 91 (80-97) fL MCH 31 (27-31) pg MCHC 34 (31-36) g/dl RDW 12 (10.5-15) % Plt Count 190 (150-450) 10^3/ul MPV 10 (7.4-10.4) um3 Neut % (Auto) 86.2 H (38-83) % Lymph % (Auto) 4.5 L (25-47) % [place] % (Auto) 3.3 (1-9) % Eos % (Auto) 4.9 (0-6) % Baso % (Auto) 1.1 (0-2) % Absolute Neuts (auto) 5.8 (1.5-7.7) 10^3/ul Absolute Lymphs (auto) 0.3 L (1.0-4.8) 10^3/ul Absolute Monos (auto) 0.2 (0-0.8) 10^3/ul Absolute Eos (auto) 0.3 (0-0.6) 10^3/ul Absolute Basos (auto) 0.1 (0-0.2) 10^3/ul Absolute Nucleated RBC 0 10^3/ul Nucleated RBC % 0.1 Sodium 137 (133-145) mmol/L Potassium 4.3 (3.5-5.0) mmol/L Chloride 103 (101-111) mmol/L Carbon Dioxide 27 (22-32) mmol/L Anion Gap 7 (2-11) mmol/L BUN 15 (6-24) mg/dL Creatinine 0.67 (0.51-0.95) mg/dL Est GFR ( Amer) 121.3 (>60) Est GFR (Non-Af Amer) 94.3 (>60) BUN/Creatinine Ratio 22.4 H (8-20) Glucose 107 H (70-100) mg/dL Lactic Acid 1.0 (0.5-2.0) mmol/L Calcium 8.2 L (8.6-10.3) mg/dL Total Bilirubin 0.50 (0.2-1.0) mg/dL AST 97 H (13-39) U/L ALT 44 (7-52) U/L Alkaline Phosphatase 60 (34-104) U/L Total Creatine Kinase 2664 H (10-223) U/L CK-MB (CK-2) 55.8 H (0.6-6.3) ng/mL Troponin I 1.54 H* (<0.04) ng/mL C-Reactive Protein 76.42 H (< 5.00) mg/L B-Natriuretic Peptide ( - 100) pg/mL Total Protein 5.6 L (6.4-8.9) g/dL Albumin 3.2 (3.2-5.2) g/dL Globulin 2.4 (2-4) g/dL Albumin/Globulin Ratio 1.3 (1-3) Triglycerides 89 mg/dL Cholesterol 110 mg/dL LDL Cholesterol 49 mg/dL HDL Cholesterol 42.9 mg/dL 11/19/16 Range/Units 06:20 WBC (3.5-10.8) 10^3/ul RBC (4.0-5.4) 10^6/ul Hgb (12.0-16.0) g/dl Hct (35-47) % MCV (80-97) fL MCH (27-31) pg MCHC (31-36) g/dl RDW (10.5-15) % Plt Count (150-450) 10^3/ul MPV (7.4-10.4) um3 Neut % (Auto) (38-83) % Lymph % (Auto) (25-47) % [place] % (Auto) (1-9) % Eos % (Auto) (0-6) % Baso % (Auto) (0-2) % Absolute Neuts (auto) (1.5-7.7) 10^3/ul Absolute Lymphs (auto) (1.0-4.8) 10^3/ul Absolute Monos (auto) (0-0.8) 10^3/ul Absolute Eos (auto) (0-0.6) 10^3/ul Absolute Basos (auto) (0-0.2) 10^3/ul Absolute Nucleated RBC 10^3/ul Nucleated RBC % Sodium (133-145) mmol/L Potassium (3.5-5.0) mmol/L Chloride (101-111) mmol/L Carbon Dioxide (22-32) mmol/L Anion Gap (2-11) mmol/L BUN (6-24) mg/dL Creatinine (0.51-0.95) mg/dL Est GFR ( Amer) (>60) Est GFR (Non-Af Amer) (>60) BUN/Creatinine Ratio (8-20) Glucose (70-100) mg/dL Lactic Acid (0.5-2.0) mmol/L Calcium (8.6-10.3) mg/dL Total Bilirubin (0.2-1.0) mg/dL AST (13-39) U/L ALT (7-52) U/L Alkaline Phosphatase (34-104) U/L Total Creatine Kinase (10-223) U/L CK-MB (CK-2) (0.6-6.3) ng/mL Troponin I (<0.04) ng/mL C-Reactive Protein (< 5.00) mg/L B-Natriuretic Peptide 113 H ( - 100) pg/mL Total Protein (6.4-8.9) g/dL Albumin (3.2-5.2) g/dL Globulin (2-4) g/dL Albumin/Globulin Ratio (1-3) Triglycerides mg/dL Cholesterol mg/dL LDL Cholesterol mg/dL HDL Cholesterol mg/dL Assess/Plan/Problems-Billing Ms Naylor is a 46 yo F who has a past h/o HTN and HLD prior to her gastric bypass who presented to the ER with c/o chest pain and SOB and was found to have an elevated troponin and CPK. - Patient Problems (1) Acute myopericarditis Current Visit: Yes Status: Acute Code(s): I30.9 - ACUTE PERICARDITIS, UNSPECIFIED SNOMED Code(s): 83361137 Comment: The patient's troponin continues to climb however her CPK is trending down. I question myopericarditis as the diagnosis. She has a small pericardial effusion and elevated CRP which would support the diagosis. Will start colchicine 0.6mg BID. Cardiology will follow up later today. (2) Rhabdomyolysis Current Visit: Yes Status: Acute Code(s): M62.82 - RHABDOMYOLYSIS SNOMED Code(s): 261680698 Comment: The aptient's CPK was elevated ~2200. This has trended down. Given the continued body aches will start IVF hydration. I question if her body aches may be related to the rhabdomyolysis. (3) DVT prophylaxis Current Visit: Yes Status: Acute Code(s): PRY2930 - SNOMED Code(s): 567087092 Comment: ambulation (4) Full code status Current Visit: Yes Status: Acute Code(s): Z78.9 - OTHER SPECIFIED HEALTH STATUS SNOMED Code(s): 523850538
[2016-11-20] MEDS ORDERED: Colchicine* 0.6 MG TAB PO SCH (12:00)
[2016-11-20] MEDS: NS 0.9% 1000 ML* 1,000 ML IV SCH ×2 (12:27→18:47)
[2016-11-20] MEDS: Colchicine* 0.6 MG TAB PO SCH ×2 (12:27→21:08)
--- NOTE | 2016-11-20 16:12 | PN ---
Subjective Date of Service: 11/20/16 - CC: myalgias, diffuse. Interval History: The patient says this AM her muscle pain was worse, legs and shoulders bilaterally. S/p cochicine, mild improvement. Medications Active Medications: Acetaminophen (Tylenol Tab*) 650 mg PO Q4H PRN PRN Reason: PAIN - MILD Alprazolam (Xanax Tab*) 0.25 mg PO DAILY [facility] Last Admin: 11/20/16 07:22 Dose: 0.25 mg Citalopram Hydrobromide (Celexa Tab*) 40 mg PO QAM [facility] Last Admin: 11/20/16 07:22 Dose: 40 mg Colchicine (Colcrys*) 0.6 mg PO BID [facility] Last Admin: 11/20/16 12:27 Dose: 0.6 mg Sodium Chloride (Ns 0.9% 1000 Ml*) 1,000 mls @ 150 mls/hr IV PER RATE [facility] Last Admin: 11/20/16 12:27 Dose: 150 mls/hr Morphine Sulfate (Morphine Inj (Syringe)*) 4 mg IV Q4H PRN PRN Reason: PAIN Last Admin: 11/20/16 07:25 Dose: 4 mg Nitroglycerin (Nitroglycerin Tab 0.4 Mg*) 0.4 mg SL Q5M PRN PRN Reason: ANGINA Oxycodone/Acetaminophen (Percocet 5/325 Tab*) 1 tab PO Q6H PRN PRN Reason: PAIN - SEVERE Last Admin: 11/20/16 12:20 Dose: 1 tab Objective Vital Signs: Temp Pulse Resp BP Pulse Ox 98.5 F 96 16 110/71 96 11/20/16 11:17 11/20/16 11:17 11/20/16 12:20 11/20/16 11:17 11/20/16 11:17 Oxygen Devices in Use Now: None Appearance: Middle aged woman, fit, in bed, energetic, comfortable at rest, she is careful with movement re: discomfort. Eyes: No Scleral Icterus, PERRLA Ears/Nose/Mouth/Throat: Clear Oropharnyx, Mucous Membranes Moist Neck: NL Appearance and Movements; NL JVP, Trachea Midline, No Thyroid Enlargement, Masses Respiratory: Symmetrical Chest Expansion and Respiratory Effort, Clear to Auscultation Cardiovascular: NL Sounds; No Murmurs; No JVD, RRR Abdominal: NL Sounds; No Tenderness; No Distention, No Hepatosplenomegaly Extremities: - - RLE enlarged diffusely below knee c/w LLE. Skin: - - mild macular papular rash trunk, sun exposure changes. Neurological: Alert and Oriented x 3, NL Muscle Strength and Tone Lines/Tubes/Other Access: Clean, Dry and Intact Peripheral IV Laboratory Results: 11/20/16 04:52 APTT 29.3 seconds (26.0-36.3) 11/19/16 18:44 Total Bilirubin 0.50 mg/dL (0.2-1.0) 11/19/16 06:20 AST 97 U/L (13-39) H 11/19/16 06:20 ALT 44 U/L (7-52) 11/19/16 06:20 Alkaline Phosphatase 60 U/L (34-104) 11/19/16 06:20 CK-MB (CK-2) 55.8 ng/mL (0.6-6.3) H 11/19/16 06:20 B-Natriuretic Peptide 113 pg/mL (-100) H 11/19/16 06:20 Total Protein 5.6 g/dL (6.4-8.9) L 11/19/16 06:20 Albumin 3.2 g/dL (3.2-5.2) 11/19/16 06:20 Globulin 2.4 g/dL (2-4) 11/19/16 06:20 Albumin/Globulin Ratio 1.3 (1-3) 11/19/16 06:20 Triglycerides 89 mg/dL 11/19/16 06:20 Cholesterol 110 mg/dL 11/19/16 06:20 LDL Cholesterol 49 mg/dL 11/19/16 06:20 HDL Cholesterol 42.9 mg/dL 11/19/16 06:20 11/19/16 11/19/16 11/19/16 10:20 14:24 18:44 Troponin I 1.76 H* 2.02 H* 2.53 H* 11/20/16 11/20/16 04:52 12:13 Troponin I 2.69 H* 2.48 H* CRP 76 ESR 8 Diagnostic Imaging: CT L-Spine reveals 1. NO EVIDENCE FOR FRACTURE. 2. MILD LUMBAR SPONDYLOSIS, IF THE PATIENT'S SYMPTOMS PERSIST CONSIDER MR IMAGING. 3. THERE APPEARS TO BE A PERICARDIAL EFFUSION WHICH IS PARTIALLY SEEN ON IMAGES THROUGH THE LUNG BASES. CTA Chest reveals No evidence of pulmonary embolus is noted. No evidence of alveolar consolidation is noted. Echo: small PC effusion, LVEF 65%. Cath: Normal coronary arteries. Assessment/Plan 46 yo female with recent contact dermatitis, then RLE swelling, no DVT by V. Doppler, +bakers cyst seen, followed by diffuse myalgias with elevated CPK and troponins. CT and echo with small pericardial effusion. Elevated CRP. Presumptive diagnosis is myopericarditis. Etiology could be viral, differential of autoimmune dissease. Myalgias/myopericarditis: Cochicine and aleve around the clock, both for a week, then Aleve PRN and chochicine for a month. Follow CRP, repeat at discharge and in a week. Additional workup could include RF, ds DNA, but I defer to internal medicine. Light to moderate exercise on discharge OK, avoid strenuous, I discussed with the patient. Follow up with cardiology in a week.
[2016-11-20] MEDS: Naproxen TAB* 375 MG PO SCH ×2 (16:52→21:08)
[2016-11-21] MEDS: NS 0.9% 1000 ML* 1,000 ML IV SCH (01:39)
[2016-11-21] MEDS: oxyCODONE/Acetamin 5/325 MG* TAB PO PRN (02:33)
--- NOTE | 2016-11-21 03:51 | CATH ---
CC: Hospitalist service, Dr. Estes; Dr. Gutierrez; Dr. Warren CARDIAC CATHETERIZATION REPORT: DATE OF PROCEDURE: 11/19/16 PROCEDURE: Left cardiac catheterization, selective coronary angiography, left ventriculography. INDICATION: The patient is a 46-year-old female patient who presented to the hospital with symptoms of chest pain and nonspecific EKG abnormality. She had significantly abnormal CK with 2400 and MB of 55 and a troponin at 1.5. She was further referred for cardiac catheterization to evaluate her c oronary anatomy. PROCEDURE IN DETAIL: After informed written consent had been obtained the patient was brought into the cardiac catheterization lab where the right femoral region was prepped and draped in the usual s terile fashion. 1% Xylocaine was used for local anesthesia. Next, the right femoral artery was ent ered and a 6-Brazilian sheath placed into the right femoral artery. Through the right femoral arterial sheath a 6-Brazilian JL4 catheter was advanced over the arch of the aorta, left coronary engaged, and left coronary arteriography performed. This catheter was removed and a 6-Brazilian JR4 catheter was ad vanced over the arch of the aorta. Right coronary engaged. Right coronary arteriography performed. This catheter was removed and a 6-Brazilian pigtail catheter was advanced over the arch of the aorta into the left ventricle where left ventriculography was performed. This catheter was removed. Hemos tasis was obtained with the Mynx device successfully. There were no complications and the patient t olerated the procedure very well. HEMODYNAMICS: The aortic pressure is 123/63 mmHg, left ventricle 130 with an LVEDP of 8 mmHg. Left main coronary artery: The left main coronary artery was a good caliber vessel, it was short. It gave rise to a left anterior descending artery and circumflex coronary artery. Left main was awa e of any significant disease. Left anterior descending artery: The left anterior descending artery has proximal mid ectasia with borderline aneurysmal artery and normal CARLOS-3 flow without any definitive obstructive disease. The re is a very small tiny first diagonal branch that has in the ostium about 60% to 70% stenosis. Thi s was a very small tiny branch. Circumflex coronary artery: The circumflex coronary artery was a large caliber vessel and was free of any significant disease. Right coronary artery: The right coronary artery was a large caliber vessel. It has minimal irregu larities without any definite obstructive disease. Left ventriculography: Left ventriculography was performed in the standard LOZANO projection, it showe d a normal left ventricular systolic function and wall motion with an EF of 65%. CONCLUSION: 1. Moderate up to 60% ostial disease in a very small tiny diagonal branch of the LAD. 2. 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 3. Minimal luminal irregularities of the right coronary artery. 4. Normal left ventricular systolic function with an EF 60% to 65%. 5. Hemostasis obtained with a Mynx device successfully. [id number]/CPS #: [id number]
[2016-11-21] MEDS ORDERED: oxyCODONE/Acetamin 5/325 MG* TAB PO PRN (07:28)
[2016-11-21] MEDS ORDERED: Furosemide IV* 10 MG/ML 2 ML VIAL (20 MG) IV ONE (07:28)
[2016-11-21] MEDS: Morphine INJ* 4 MG/ML 1 ML SYRINGE IV PRN (07:30)
[2016-11-21] MEDS: Naproxen TAB* 375 MG PO SCH (07:36)
[2016-11-21] MEDS: Colchicine* 0.6 MG TAB PO SCH (07:36)
[2016-11-21] MEDS: Citalopram TAB* 40 MG PO SCH (07:37)
[2016-11-21] MEDS: ALPRAZolam TAB* 0.25 MG PO SCH (07:37)
[2016-11-21] MEDS ORDERED: Colchicine* 0.6 MG TAB PO SCH (09:00)
--- NOTE | 2016-11-21 09:04 | PN ---
Subjective Date of Service: 11/21/16 Interval History: Pt is feeling poorly. She was having a significant amount of pain between her shoulder blades and B/L shoulders. Her pain is improved with the morphine. She notes that she has become puffy and put on about 10lb. She feels ready to go home and take it easy. Objective Active Medications: Acetaminophen (Tylenol Tab*) 650 mg PO Q4H PRN PRN Reason: PAIN - MILD Alprazolam (Xanax Tab*) 0.25 mg PO DAILY [facility] Last Admin: 11/21/16 07:37 Dose: 0.25 mg Citalopram Hydrobromide (Celexa Tab*) 40 mg PO QAM [facility] Last Admin: 11/21/16 07:37 Dose: 40 mg Colchicine (Colcrys*) 0.6 mg PO BID [facility] Last Admin: 11/21/16 07:36 Dose: 0.6 mg Morphine Sulfate (Morphine Inj (Syringe)*) 4 mg IV Q4H PRN PRN Reason: PAIN Last Admin: 11/21/16 07:30 Dose: 4 mg Naproxen (Naprosyn Tab*) 375 mg PO BID [facility] Last Admin: 11/21/16 07:36 Dose: 375 mg Nitroglycerin (Nitroglycerin Tab 0.4 Mg*) 0.4 mg SL Q5M PRN PRN Reason: ANGINA Oxycodone/Acetaminophen (Percocet 5/325 Tab*) 1 tab PO Q4H PRN PRN Reason: PAIN - SEVERE Vital Signs 11/20/16 11/20/16 11/20/16 11:17 12:20 14:20 Temperature 98.5 F Pulse Rate 96 Respiratory 18 16 14 Rate Blood Pressure 110/71 (mmHg) O2 Sat by Pulse 96 Oximetry 11/20/16 11/20/16 11/20/16 15:30 18:50 19:41 Temperature 99.5 F 98.4 F Pulse Rate 93 93 Respiratory 20 18 16 Rate Blood Pressure 99/61 102/59 (mmHg) O2 Sat by Pulse 99 97 Oximetry 11/20/16 11/20/16 11/20/16 20:00 20:50 23:29 Temperature 97.4 F Pulse Rate 80 Respiratory 16 16 16 Rate Blood Pressure 103/65 (mmHg) O2 Sat by Pulse 98 Oximetry 08/07/0511/21/16 11/21/16 02:33 03:51 04:07 Temperature 97.5 F Pulse Rate 84 Respiratory 18 16 16 Rate Blood Pressure 102/65 (mmHg) O2 Sat by Pulse 98 Oximetry 11/21/16 11/21/16 11/21/16 07:09 07:20 07:30 Temperature 98.2 F Pulse Rate 87 Respiratory 16 18 Rate Blood Pressure 87/61 98/62 (mmHg) O2 Sat by Pulse 99 Oximetry 11/21/16 07:37 Temperature Pulse Rate Respiratory 18 Rate Blood Pressure (mmHg) O2 Sat by Pulse Oximetry Oxygen Devices in Use Now: None Appearance: Middle aged female sitting up in bed eating breakfast, NAD Eyes: No Scleral Icterus Ears/Nose/Mouth/Throat: Mucous Membranes Moist Respiratory: Symmetrical Chest Expansion and Respiratory Effort, Clear to Auscultation Cardiovascular: NL Sounds; No Murmurs; No JVD, RRR, - - non pitting edema of the R lower leg Abdominal: NL Sounds; No Tenderness; No Distention Extremities: No Clubbing, Cyanosis Skin: No Nodules or Sclerosis, - - small erythematous papular rash on chest, shoulders, arms Neurological: Alert and Oriented x 3 Result Diagrams: 11/19/16 06:20 11/20/16 04:52 Additional Lab and Data: Lab Results 11/19/16 11/19/16 11/19/16 Range/Units 06:20 06:20 06:20 WBC 6.7 (3.5-10.8) 10^3/ul RBC 5.05 (4.0-5.4) 10^6/ul Hgb 15.5 (12.0-16.0) g/dl Hct 46 (35-47) % MCV 91 (80-97) fL MCH 31 (27-31) pg MCHC 34 (31-36) g/dl RDW 12 (10.5-15) % Plt Count 190 (150-450) 10^3/ul MPV 10 (7.4-10.4) um3 Neut % (Auto) 86.2 H (38-83) % Lymph % (Auto) 4.5 L (25-47) % [place] % (Auto) 3.3 (1-9) % Eos % (Auto) 4.9 (0-6) % Baso % (Auto) 1.1 (0-2) % Absolute Neuts (auto) 5.8 (1.5-7.7) 10^3/ul Absolute Lymphs (auto) 0.3 L (1.0-4.8) 10^3/ul Absolute Monos (auto) 0.2 (0-0.8) 10^3/ul Absolute Eos (auto) 0.3 (0-0.6) 10^3/ul Absolute Basos (auto) 0.1 (0-0.2) 10^3/ul Absolute Nucleated RBC 0 10^3/ul Nucleated RBC % 0.1 Sodium 137 (133-145) mmol/L Potassium 4.3 (3.5-5.0) mmol/L Chloride 103 (101-111) mmol/L Carbon Dioxide 27 (22-32) mmol/L Anion Gap 7 (2-11) mmol/L BUN 15 (6-24) mg/dL Creatinine 0.67 (0.51-0.95) mg/dL Est GFR ( Amer) 121.3 (>60) Est GFR (Non-Af Amer) 94.3 (>60) BUN/Creatinine Ratio 22.4 H (8-20) Glucose 107 H (70-100) mg/dL Lactic Acid 1.0 (0.5-2.0) mmol/L Calcium 8.2 L (8.6-10.3) mg/dL Total Bilirubin 0.50 (0.2-1.0) mg/dL AST 97 H (13-39) U/L ALT 44 (7-52) U/L Alkaline Phosphatase 60 (34-104) U/L Total Creatine Kinase 2664 H (10-223) U/L CK-MB (CK-2) 55.8 H (0.6-6.3) ng/mL Troponin I 1.54 H* (<0.04) ng/mL C-Reactive Protein 76.42 H (< 5.00) mg/L B-Natriuretic Peptide ( - 100) pg/mL Total Protein 5.6 L (6.4-8.9) g/dL Albumin 3.2 (3.2-5.2) g/dL Globulin 2.4 (2-4) g/dL Albumin/Globulin Ratio 1.3 (1-3) Triglycerides 89 mg/dL Cholesterol 110 mg/dL LDL Cholesterol 49 mg/dL HDL Cholesterol 42.9 mg/dL 11/19/16 Range/Units 06:20 WBC (3.5-10.8) 10^3/ul RBC (4.0-5.4) 10^6/ul Hgb (12.0-16.0) g/dl Hct (35-47) % MCV (80-97) fL MCH (27-31) pg MCHC (31-36) g/dl RDW (10.5-15) % Plt Count (150-450) 10^3/ul MPV (7.4-10.4) um3 Neut % (Auto) (38-83) % Lymph % (Auto) (25-47) % [place] % (Auto) (1-9) % Eos % (Auto) (0-6) % Baso % (Auto) (0-2) % Absolute Neuts (auto) (1.5-7.7) 10^3/ul Absolute Lymphs (auto) (1.0-4.8) 10^3/ul Absolute Monos (auto) (0-0.8) 10^3/ul Absolute Eos (auto) (0-0.6) 10^3/ul Absolute Basos (auto) (0-0.2) 10^3/ul Absolute Nucleated RBC 10^3/ul Nucleated RBC % Sodium (133-145) mmol/L Potassium (3.5-5.0) mmol/L Chloride (101-111) mmol/L Carbon Dioxide (22-32) mmol/L Anion Gap (2-11) mmol/L BUN (6-24) mg/dL Creatinine (0.51-0.95) mg/dL Est GFR ( Amer) (>60) Est GFR (Non-Af Amer) (>60) BUN/Creatinine Ratio (8-20) Glucose (70-100) mg/dL Lactic Acid (0.5-2.0) mmol/L Calcium (8.6-10.3) mg/dL Total Bilirubin (0.2-1.0) mg/dL AST (13-39) U/L ALT (7-52) U/L Alkaline Phosphatase (34-104) U/L Total Creatine Kinase (10-223) U/L CK-MB (CK-2) (0.6-6.3) ng/mL Troponin I (<0.04) ng/mL C-Reactive Protein (< 5.00) mg/L B-Natriuretic Peptide 113 H ( - 100) pg/mL Total Protein (6.4-8.9) g/dL Albumin (3.2-5.2) g/dL Globulin (2-4) g/dL Albumin/Globulin Ratio (1-3) Triglycerides mg/dL Cholesterol mg/dL LDL Cholesterol mg/dL HDL Cholesterol mg/dL Assess/Plan/Problems-Billing Ms Naylor is a 46 yo F who has a past h/o HTN and HLD prior to her gastric bypass who presented to the ER with c/o chest pain and SOB and was found to have an elevated troponin and CPK. - Patient Problems (1) Acute myopericarditis Current Visit: Yes Status: Acute Code(s): I30.9 - ACUTE PERICARDITIS, UNSPECIFIED SNOMED Code(s): 29984131 Comment: Troponin has peaked. Likely myopericarditis though the etiology of this is unknown. The patient has a papular rash that she attributed to a lotion she used but has noted that it is now spread to her chest and arms. ? viral illness as the precipitant. Will continue colchicine 06.mg BID x1 month and aleve standing x1 week then as needed. Additionally will provide Rx for percocet. Follow up with cardiology in 1 week. Repeat CRP pending now. (2) Rhabdomyolysis Current Visit: Yes Status: Acute Code(s): M62.82 - RHABDOMYOLYSIS SNOMED Code(s): 509166369 Comment: CPK has improved. Will get repeat level now. Stop IVF as pt feels she has become very puffy. Continue to encourage adequate oral intake. (3) DVT prophylaxis Current Visit: Yes Status: Acute Code(s): JJT8595 - SNOMED Code(s): 793864395 Comment: ambulation (4) Full code status Current Visit: Yes Status: Acute Code(s): Z78.9 - OTHER SPECIFIED HEALTH STATUS SNOMED Code(s): 999622047
[2016-11-21 11:14] LABS: BUN/Creatinine Ratio 19.6 (8-20); C Reactive Protein 87.2 mg/L (< 5.00); Calcium 7.5 mg/dL (8.6-10.3); EGFR African American 166.2 (>60); EGFR Non-African American 129.3 (>60); Potassium 4.5 mmol/L (3.5-5.0)
[2016-11-21 11:18] LABS: Troponin I 1.55 ng/mL (<0.04)
[2016-11-21 11:35] VITALS: BP 91/63
--- NOTE | 2016-11-22 07:57 | DS ---
CC: Dr. Warren; Dr. De Los Santos; Dr. Moore * DISCHARGE SUMMARY: DATE OF ADMISSION: 11/19/16 DATE OF DISCHARGE: 11/21/16 PRIMARY CARE PROVIDER: Dr. Warren. PRINCIPAL DIAGNOSES: 1. Acute myopericarditis. 2. Rhabdomyolysis with persistent elevated creatinine phosphokinase. 3. Erythematous papular rash noted on chest, back, and upper extremities. SECONDARY DIAGNOSIS: Anxiety/depression. DISCHARGE MEDICATIONS: 1. Lexapro 20 mg p.o. daily. 2. Xanax 0.25 mg p.o. daily. 3. Percocet 5/325 one to two tabs p.o. q.4 hours p.r.n. pain. 4. Naproxen 375 mg p.o. b.i.d. scheduled x1 week then b.i.d. p.r.n. pain. 5. Colchicine 0.6 mg p.o. b.i.d. x1 month. HOSPITAL COURSE: Ms. Naylor is a 46-year-old female who presented to the emergency room with complaints of chest, back, arm pain, and severe shortness of breath on the morning of admission. The patient was found to have an elevated troponin along with nonspecific EKG changes and therefore was seen in consultation by Dr. Gutierrez. The patient underwent cardiac catheterization, which did not reveal any evidence of significant coronary artery disease. The patient also underwent transthoracic echocardiogram that revealed a small pericardial effusion and otherwise normal ejection fraction and wall motion. The patient was subsequently diagnosed with presumed myopericarditis. The patient prior to presenting to the hospital overall felt very well and had no complaints other than a rash on her upper shoulders and back, which she attributed to a lotion that she had used. The patient on admission was also found to have an elevated CPK of 2664. The patient had completed a 1-hour Bodystep class and a 1-hour Bodypump class the day prior to admission. It was felt that this rhabdomyolysis likely secondary to that. The patient's CPK trended down; however, even after administering fluids due to low urine output, her CPK climbed. Additionally, the patient's CRP is elevated from 76 on the day of admission to 87 on the day of discharge. Overall, the patient does feel somewhat improved in some aspects; however, continues to have at times severe shoulder pain. She also notes that the rash that was only on her upper back and shoulders previously is now on her arms and chest. The patient noted that her extremities are seeming quite puffy with all the fluid hydration she received. At this point, the patient is eating and drinking well. While she continues to have shoulder pain, I feel that she can manage this at home. I do feel that the patient would benefit from seeing Dr. Moore as an outpatient. I had contacted the office to try to get her scheduled for Friday when he is back in the office. I will recontact the office tomorrow as I did not get confirmation of a scheduled appointment for next Friday. The patient understands that if she has any concerning symptoms whatsoever including worsened pain, shortness of breath or any other symptoms that are concerning, she is to return to the emergency room for evaluation. The patient has been instructed to follow up with Dr. Warren early next week and with Dr. De Los Santos on 11/29/16 at 11:30 a.m. Again, I will contact the patient when I have confirmation of an appointment with Dr. Moore. FOLLOWUP CONCERNS: The patient is being discharged home today, 11/21/16. ACTIVITY LEVEL: Per post-cath instructions. CONDITION ON DISCHARGE: Stable. TIME SEEN: Thiry-five minutes was spent discharging this patient. [id number]/[facility] #: [id number] MTDD
== END 2016-11-21 13:40 | disposition home or self-care (01) | DRG 191 ==
LOC: ED 05:32 → MEDTELE 09:05
PROVIDERS: ADMIT Hospitalist; ATTEND Hospitalist
PROC: B2151ZZ Fluoroscopy of Left Heart using Low Osmolar Contrast (ICD-10-PCS; 2016-11-19)
PROC: 4A023N7 Measurement of Cardiac Sampling and Pressure, Left Heart, Percutaneous Approach (ICD-10-PCS; 2016-11-19)
PROC: B2111ZZ Fluoroscopy of Multiple Coronary Arteries using Low Osmolar Contrast (ICD-10-PCS; principal; 2016-11-19 15:00)
DX: I30.9 Acute pericarditis, unspecified (principal); M62.82 Rhabdomyolysis; I10 Essential (primary) hypertension; E78.5 Hyperlipidemia, unspecified; F41.9 Anxiety disorder, unspecified; F32.9 Major depressive disorder, single episode, unspecified; M47.9 Spondylosis, unspecified; E78.00 Pure hypercholesterolemia, unspecified; G47.30 Sleep apnea, unspecified; K21.9 Gastro-esophageal reflux disease without esophagitis; R40.2412 Glasgow coma scale score 13-15, at arrival to emergency department; I71.9 Aortic aneurysm of unspecified site, without rupture; I25.10 Atherosclerotic heart disease of native coronary artery without angina pectoris; L53.8 Other specified erythematous conditions; Z98.84 Bariatric surgery status; Z82.0 Family history of epilepsy and other diseases of the nervous system; Z82.49 Family history of ischemic heart disease and other diseases of the circulatory system; Z83.49 Family history of other endocrine, nutritional and metabolic diseases
CPT/HCPCS: 36415; 71020; 71275; 72131; 80048; 80053; 80061; 82550; 82553; 83605; 83880; 84484; 85025; 85652; 85730; 86140; 93005; 93306; 93458; 99156; 99157; 99285; A9270-GY; C1760; C1887; J1644; J1885; J1940; J2001; J2250; J2270; J2405; J3010; Q9967

== ENCOUNTER 2016-11-22 06:39 | Inpatient (IN) | payer BC ==
[2016-11-22 07:43] LABS: Hematocrit 44 % (35-47); Hemoglobin 14.8 g/dl (12.0-16.0); Mean Corpuscular HGB Conc 34 g/dl (31-36); Mean Corpuscular Hemoglobin 31 pg (27-31); Mean Corpuscular Volume 91 fL (80-97); Mean Platelet Volume 9 um3 (7.4-10.4); Red Blood Count 4.83 10^6/ul (4.0-5.4); Red Cell Distribution Width 12 % (10.5-15)
[2016-11-22] MEDS ORDERED: Morphine INJ* 4 MG/ML 1 ML SYRINGE IV ONE (07:49)
[2016-11-22] MEDS ORDERED: Furosemide IV* 10 MG/ML VIAL (40 MG) IV ONE (07:50)
[2016-11-22 07:55] LABS: Albumin 2.5 g/dL (3.2-5.2); BUN/Creatinine Ratio 26.4 (8-20); Calcium 7.8 mg/dL (8.6-10.3); EGFR Non-African American 123.6 (>60); Globulin 2.2 g/dL (2-4); Magnesium 1.5 mg/dL (1.9-2.7); Potassium 4.5 mmol/L (3.5-5.0); Total Bilirubin 0.4 mg/dL (0.2-1.0); Total Protein 4.7 g/dL (6.4-8.9)
[2016-11-22 08:00] LABS: Troponin I 1.73 ng/mL (<0.04)
[2016-11-22 09:29] LABS: Erythrocyte Sed Rate 6 mm/Hr (0-14)
[2016-11-22] MEDS ORDERED: oxyCODONE/Acetamin 5/325 MG* TAB PO ONE (10:28)
--- NOTE | 2016-11-22 10:29 | RAD ---
Indication: Chest pain. Single frontal view of the chest performed at 0735 hours was reviewed. Comparison is made with previous exam dated November 19, 2016. No mediastinal shift is noted. Heart is of normal size and configuration. Lung shoemaker appear clear. IMPRESSION: NO ACTIVE CARDIOPULMONARY DISEASE IS NOTED.
[2016-11-22 11:19] LABS: C Reactive Protein 156.47 mg/L (< 5.00)
[2016-11-22] MEDS ORDERED: Furosemide IV* 10 MG/ML 2 ML VIAL (20 MG) IV SLOW PU ONE (11:55)
[2016-11-22] MEDS ORDERED: diPHENhydraMINE IV* 50 MG/ML 1 ml VIAL (BENADRYL) SLOW PUSH PRN (12:38)
[2016-11-22] MEDS: Enoxaparin(*) 40 MG/0.4 ML SYR SUBCUT SCH (12:52)
[2016-11-22] MEDS ORDERED: hydrOXYzine HCL TAB* 25 MG PO PRN (12:57)
[2016-11-22] MEDS ORDERED: Magnesium Sulf 4 GM/100 ML IV* 4,000 MG/100 ML BAG IVPB ONE (13:00)
--- NOTE | 2016-11-22 13:32 | ECHO ---
Patient: HUNTER CAN [facility] Rec#: [id number] : 1970 Date: 11/22/2016 Age: 46y Height: 157.48 cm / 62.0 in Weight: 68.04 kg / 150.0 lbs Sex: F BSA: 1.69 Room#: 453 Admit Date#: 11/22/2016 Type: Inpatient Referring: Kassi Rivas MD Reading: González Brown MD Campus Dean: Marylu Gallegos DYLON CC: Fredi Warren MD Transthoracic Echocardiogram Indication: Pericardial effusion BP: 106/67 HR: 102 Rhythm: Tachycardia Findings History: S/P cath 11/19/16, 20 pound weight gain noted ,recent rhabdomyolysis. S/P gastric bypass,MYKE with CPAP,HTN,HLD all before the bypass, smoker. This is a limited echo to evaluate RV and LV function. Left Ventricle: Moderate concentric left ventricular hypertrophy is observed.13 mm overall with up to 16 mm in the upper septum. Septal wall hypertrophy is observed. The estimated ejection fraction is 60-65%. Right Ventricle: The right ventricular global systolic function is normal. Pericardium: A pericardial effusion is visualized.Pericardial effusion (all measurements in centimeters): LITA @ RV 1.1,@ LV 0.9; SAX ant 0.7-0.8, lateral 0.9-1.0; A4C @ RV 1.6-2.4; subcostal 4C RV 1.0-2.2; subcostal SAX 0.9. There is a small pericardial effusion.No definite 2d evidence of hemodynamic compromise. There is minimal RA inversion. The doppler measurements are borderline for tamponade physiology. Clinical correlation suggested. Conclusions Moderate concentric left ventricular hypertrophy is observed.13 mm overall with up to 16 mm in the upper septum. The estimated ejection fraction is 60-65%. The right ventricular global systolic function is normal. There is a small pericardial effusion. No definite 2d evidence of hemodynamic compromise. There is minimal RA inversion. The doppler measurements are borderline for tamponade physiology. Clinical correlation suggested. LVH of unclear etiology: consider hypertensive heart disease vs hypertrophic cardiomyopathy vs infiltrative cardiomyopathy. Compare to 8.1.17, mild increase in pericardial effusion. Measurements Name Value Normal Range MV E-wave Vmax 0.7 m/sec - MV deceleration time 227 msec - MV A-wave Vmax 0.7 m/sec - MV E:A ratio 1.16 ratio - Name Value Normal Range LVOT Vmax 1.2 m/sec - LVOT VTI 20 cm - LVOT peak gradient 5.52 mmHg - LVOT mean gradient 1.89 mmHg -
[2016-11-22] MEDS ORDERED: Heparin VIAL(*) 5000 UNITS/ML VIAL (FIVE THOUSAND) SUBCUT SCH (14:00)
[2016-11-22] MEDS: oxyCODONE/Acetamin 5/325 MG* TAB PO PRN ×3 (15:48→23:54)
[2016-11-22] MEDS: Triamcinolone 0.025% OINT * 15 GM TUBE TOPICAL SCH ×2 (15:49→21:01)
--- NOTE | 2016-11-22 16:43 | HP ---
CC: Dr. Warren; Dr. Gutierrez; Dr. Moore * HISTORY AND PHYSICAL: DATE OF ADMISSION: 11/22/16 PROVIDER: Vanesa Epsaña NP ATTENDING PHYSICIAN: Kassi Santiago MD * (as dictated by Vanesa España NP). CONSULTING PHYSICIAN: Dr. González Brown, Cardiology. PRIMARY CARE PROVIDER: Fredi Warren MD PRIMARY SUPERVISOR WATERPROOFING: Nighat Gutierrez MD CHIEF COMPLAINT: Increase in body weight, diffuse edema, decreased urine output , and rash. HISTORY OF PRESENT ILLNESS: Ms. Naylor is a 46-year-old female who was recently discharged on 11/21/16 with a diagnosis of acute myopericarditis, rhabdomyolysis with persistently elevated CPK and erythematous papular rash to chest, back and upper extremities. The patient states after discharge yesterday , she went home and mostly rested on the couch and in bed. She reported having achiness yesterday that waxed and waned, but did improve with her p.r.n. medications of Percocet and Aleve. The patient has been taking all medications as prescribed. She states that last evening she took a Percocet before bed but woke up around 1 a.m. to go to the bathroom. Ms. Naylor reports feeling "terrible" and describes severe pain over both shoulders and upper arms as well as significant diaphoresis. She states she was "dripping sweat." She reports hot flashes. She was able to eventually get back to sleep with use of ice packs and a fan. When she awoke later this morning, she reports feeling "absolutely terrible." Her legs feel very achy, and she reports increased edema to her bilateral lower extremities with the right being greater than left. She reports 10/10 pain across the shoulders and radiating to the arms. However, she denies any shortness of breath, chest, or rib pain. The patient also endorses significant weight gain to the point that she no longer can fit into her clothes. Since the last admission, the patient was seen in consultation by Cardiology, as she was initially believed to have had an NSTEMI. She then underwent a cardiac catheterization, which did not reveal any evidence of significant coronary artery disease. She had a stress test and echocardiogram, the results showed no significant coronary artery disease and normal ejection fraction and wall motion. At this point, she was subsequently diagnosed with myopericarditis. In regards to the rash, the patient reportedly had a rash to the upper back and chest and arms that had been present for over a week; the patient originally attributed this to the lotion she had used. However, today the rash is apparently worse and is more pruritic. The patient states that the rash has spread and is now present on her abdomen, torso and her groin and to her legs. In regards to the patient's edema, at baseline, the patient weighs 225. She is status post Devin-en-Y surgery in 2013 and has an approximate 100 pound weight loss following surgery. She states that she was a size 18 and dropped down to a size 4, but now cannot fit into her clothes due to the severe edema. Since discharge, she reports eating small amounts of food and has had pretty poor fluid intake. She states that her stomach "feels off" with the medications she has been taking. She reports decreased urine output at home and had to remind herself to urinate as she did not have the urge to go. At baseline, the patient does have a history of urinary incontinence but has not been urinating regularly at home. The patient did report urinary output following her Lasix dose in the ER. Upon discharge, the patient was referred to Dr. Moore, and has been scheduled for the following Friday on 11/29/16, as he is out of town. The patient is also to follow up with Cardiology, which is also scheduled for next Friday, and also has a Family Medicine appointment coming up on November 25. However , given the patient's complaints, she has opted to come to the ER for further evaluation and management. Of note, the patient does have a normal ESR; however, her CRP is elevated from previous at 156.47 up from 87.20 previously. She does have a mildly elevated total CK from her previous. It is currently 2693, and yesterday it was 2002. Troponin is 1.73 in the ER. PAST MEDICAL HISTORY: Includes: 1. Recently diagnosed acute myopericarditis, etiology unknown. 2. Recently diagnosed rhabdomyolysis with persistently elevated CPK. 3. Rash to the chest, back, upper extremities, now seen on abdomen and bilateral lower extremities, previously thought to be a contact dermatitis. 4. History of hypertension, not on medications following gastric bypass. 5. History of hyperlipidemia, not on medications following gastric bypass. 6. Anxiety. 7. Depression. 8. History of urinary incontinence. PAST SURGICAL HISTORY: 1. Devin-en-Y surgery in 2013 2. Left sided lipoma removal from left mid-abdomen 3. History of D and C. ALLERGIES: No known medication allergies. MEDICATIONS: 1. Percocet 5/325 one to two tabs q.4 hours p.r.n. 2. Naproxen 375 mg b.i.d. 3. Lexapro 20 mg q.a.m. 4. Colchicine 0.6 mg b.i.d. 5. Alprazolam 0.25 mg daily. FAMILY HISTORY: The patient has a mother who is living at age 83 with history of Parkinson's, history of hypothyroidism, hyperlipidemia, hypertension and coronary artery disease. The patient's father also living, he is 82. He has a history of rheumatic fever, hypertension, hyperlipidemia. Positive history of an aunt with breast cancer. SOCIAL HISTORY: The patient is a nonsmoker. She drinks alcohol socially on occasion. Denies any illicit drug use. 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 She is . Her , Jayy Naylor, is her healthcare proxy. She has 4 biological children and 6 children including her stepchildren. REVIEW OF SYSTEMS: As per HPI. All those not mentioned are negative. PHYSICAL EXAMINATION GENERAL: Ms. Naylor is a middle-aged female, who is lying in the hospital bed, in no acute distress. VITAL SIGNS: Temperature 97.3, heart rate 86, respiratory rate 20, blood pressure 106/67, and O2 saturation 95% on room air. HEENT: Head is atraumatic, normocephalic. Face is symmetrical. Pupils are equal, round, and reactive to light. Extraocular movements are intact. Sclerae are anicteric. Ears and nose normal. Oral mucosa appears moist. Oropharynx is clear with no exudate. NECK: Supple. No lymphadenopathy appreciated. No thyromegaly noted. No JVD noted. CARDIAC: S1, S2 heart sounds. Regular rate and rhythm. No murmurs, rubs or gallops. The patient does have diffuse peripheral edema with noticeable enlargement of the right lower extremity compared to the left that is pitting. She also does have noticeable enlargement of the left upper extremity compared to the right, which is nonpitting edema. ABDOMEN: Bowel sounds are present. Abdomen is soft, nontender and nondistended. There is no guarding or rebound tenderness. MUSCULOSKELETAL: There is no cyanosis or clubbing noted. There is full active range of motion. SKIN: Appears tanned with evidence of recent sun exposure. The patient does have some peeling dryness to the scalp, at the level of her forehead. There is evidence of excoriation and erythematous papular rash to the upper back and scattered areas of excoriation to the upper arm. There is evidence of excoriation and erythematous papular rash to the left torso and abdomen, mostly on the flank as well as a papular rash noted to the bilateral groin area as well as the posterior portion of the right calf. NEURO: Cranial nerves II through XII are grossly intact. Sensation is intact to light touch throughout. Strength is 5/5 and symmetric in both upper and lower extremities bilaterally. PSYCH: She is alert and oriented x3. Affect is appropriate. LABORATORY DATA AND DIAGNOSTIC STUDIES: CBC: WBC 5.0, hemoglobin 14.8, hematocrit 44, platelet count 224, ESR is 6. CMP: Sodium 133, potassium 4.5, chloride 102, carbon dioxide 23, BUN 14, creatinine 0.53, glucose 103, lactic acid 2.6, calcium 7.8, magnesium 1.5. Total bilirubin 0.4, AST 115, ALT 55, alk phos 48. Total CK 2693, CK-MB 117.5. Troponin 1.73. CRP was 56.47. BNP 381. Albumin 2.5. Beta- HCG is 2.18. Chest x-ray shows no active cardiopulmonary disease. Echocardiogram, similar in appearance to the patient's previous admission showed sinus rhythm with poor R-wave progression with V1 through V3. ASSESSMENT AND PLAN: Ms. Naylor is a 46-year-old female who presents to the emergency room following recent discharge, but concerned for worsening rash, worsening edema, decreased urine output and significant weight gain following a recent diagnosis of acute myopericarditis and rhabdomyolysis. 1. Erythematous papular rash. Unclear etiology, though a worsening contact dermatitis is possible. There is also a possibility that the patient may have dermatomyositis, given the patient's rash distribution; the largely affected areas are areas where there is evidence of significant sun exposure. The patient will most definitely benefit from Rheumatology appointment, which has been scheduled, but in the meantime, we will start a rheumatologic workup which will include an RACHELE anti-double stranded DNA antibody, and rheumatoid factor. We will also check some viral studies including hepatitis, HIV, and Lyme. Continue p.r.n. antipruritics, as well as offering the patient triple washed linens, as some of the flare-ups are new from previous, and appear to be in areas in which she may have had contact with bedding here in the hospital. There was also some evidence of tape allergies, so we will watch that closely and continue to monitor. Infectious Disease has also been consulted but will be unavailable to see the patient until Friday. 2. Myocarditis. Etiology of this is unclear, but was thought to be viral initially. Given the patient's symptoms of worsening swelling, we will recheck an echocardiogram to re-evaluate RV dysfunction as well as compare the EF and discuss with Dr. Brown of Cardiology. 3. Acute rhabdomyolysis. The patient's renal function is normal. I will check a urinalysis. Her CK again is persistently elevated and again this may be secondary to a rheumatologic factor as opposed to the rhabdomyolysis; however , we will continue to trend a CK and recheck it tomorrow. 4. Diffuse edema. The patient did receive Lasix on her last admission, and it is unclear as to why her edema appears to be significantly worse. She did receive Lasix in the ER with good effect, but I suspect she would benefit from an additional dose. I have also ordered KEVIN hose if the patient can tolerate them on her legs, given her rash. 5. History of anxiety and depression. Continue home Lexapro and Xanax. 6. FEN: The patient ordered a heart healthy diet. 7. DVT prophylaxis: The patient is level 3 on the Adult Thrombosis Prophylaxis Risk Factor Assessment Guide, and we will continue her on subcu Lovenox. 8. Code status: The patient is a full code. TIME SPENT: Time spent on this admission was approximately 60 minutes, more than half of that time was spent [id number] with the patient obtaining history and physical, performing physical examination, and reviewing the plan of care. Plan of care was also reviewed with my attending, Dr. Santiago, who is in agreement. VANESA ESPAÑA, INFRASTRUCTURE DESIGN ENGINEER [id number]/[facility] #: [id number] [facility] HOSPITALRobert
[2016-11-22 17:06] LABS: Urine Bacteria Absent (Absent); Urine Bilirubin Negative (Negative); Urine Glucose Negative (Negative); Urine Nitrite Negative (Negative)
[2016-11-22] MEDS: Naproxen TAB* 375 MG PO SCH (21:01)
[2016-11-22] MEDS: Colchicine* 0.6 MG TAB PO SCH (21:01)
--- NOTE | 2016-11-22 21:39 | ED ---
Lio Sanon SooYoung, scribed for Laura Mirza MD on 11/22/16 at 0706 . Complex/Multi-Sys Presentation - HPI Summary HPI Summary: A 46 y/o F presents to ED with current c/o diffuse edema ongoing for past week. Pt was originally diagnosed as a NSTEMI with elevated troponins and then had left cardiac catherization on 11/19/16 which did not show CAD and pt was dx with acute myopericarditis with unknown etiology on 11/21/2016 upon dispo from [facility]. She also had elevated CK's and was dx'd with rhabdomyolysis. Pt was DC'd on to follow up with Rheumatology and cardiology. She was dc'd on colchicine and had one dose of po Lasix. Associated sx for today's visit include decreased urinary output, diffuse rash, diffuse body aches, severe weight gain ( approx 25 lbs) over past two days. Denies CP, SOB, discrete calf pain. Rates total body pain as 10 out of 10. Has Rx for Percocet, last taken at 0400. Aggravating factors: ADL, unable to walk, shower. She was given Lasix PO yesterday, and released 500 ml. The rash initially began on her back, and did not respond to medication and worsened. Still on Colchicine, but did not take it today. [facility]: 10/11/16, states she is not . Pt has an appt with Hr Administrator, Dr. Moore, in one week, as well as an appt with a pulmonology next week. Pt works at [facility] [employer] [facility] [place]. Pt is S/P Devin-en-Y gastric bypass at [facility] with weight loss of >100 lbs, no longer requiring meds for HTN or HLD. - History Of Current Complaint Chief Complaint: EDGeneral Time Seen by Provider: 11/22/16 07:04 Hx Obtained From: Patient Onset/Duration: Gradual Onset, Lasting Days, Still Present Timing: Constant Severity Currently: Severe - 10 out of 10 Severity Initially: Severe Location: Pain At: - total body Character: Dull Aggravating Factor(s): ADL, walking, showering Alleviating Factor(s): Nothing Associated Signs And Symptoms: Positive: Edema, Other - pos: decreased urinary output, weight gain, diffuse rash, diffuse body aches/pain; neg: discrete calf pain. Negative: SOB, Chest Pain, Fever Related History: Recent Hospitalization - eval for poss NSTEMI, rhabdomyolysis, myopericarditis, L cardiac cath on 11/19/16, dispo on 11/21/16 - Allergies/Home Medications Allergies/Adverse Reactions: Allergies Allergy/AdvReac Type Severity Reaction Status Date / Time No Known Allergies Allergy Verified 07/28/16 11:08 PMH/Surg Hx/FS Hx/Imm Hx Previously Healthy: No Endocrine/Hematology History: Denies: Hx Diabetes Cardiovascular History: Reports: Hx Hypercholesterolemia, Hx Hypertension Respiratory History: Reports: Hx Sleep Apnea - HX OF BEFORE BARIATRIC SURGERY GI History: Reports: Hx Gastroesophageal Reflux Disease History: Reports: Other Problems/Disorders - stress incontinence Denies: Hx Renal Disease Musculoskeletal History: Reports: Other Musculoskeletal History - HX OF BACKACHES BEFORE BARIATRIC SURGERY Sensory History: Denies: Hx Contacts or Glasses, Hx Hearing Aid Opthamlomology History: Denies: Hx Contacts or Glasses Psychiatric History: Reports: Hx Depression - ON MEDICATION FOR - Cancer History Hx Chemotherapy: No Hx Radiation Therapy: No - Surgical History Surgery Procedure, Year, and Place: 1992-D&C X 2. 2008 D&C. 10/12/2013 LAPAROSCOPIC GASTRIC BYPASS, [facility] [place], lost 100 lbs. 2016 L CARDIAC CATH, [facility] Hx Anesthesia Reactions: No Infectious Disease History: No Infectious Disease History: Denies: Traveled Outside the [place] in Last 30 Days - Family History Known Family History: Positive: Cardiac Disease, Other - pos: BREAST CA, aunt Negative: Hypertension, Diabetes - Social History Occupation: Employed Full-time Lives: With Family Alcohol Use: Occasionally Alcohol Amount: SOCIALLY Hx Substance Use: No Substance Use Type: Reports: None Hx Tobacco Use: Yes Have You Smoked in the Last Year: No Review of Systems Positive: Other - pos: rapid weight gain approx 25 lbs Negative: Chest Pain Negative: Shortness Of Breath Gastrointestinal: Negative Positive: other - pos: decreased urinary output Positive: Edema - bilat LE, Other - pos: diffuse body pain; neg: discrete calf pain Positive: Rash - diffuse Neurological: Negative Psychological: Normal All Other Systems Reviewed And Are Negative: Yes Physical Exam Triage Information Reviewed: Yes Vital Signs On Initial Exam: Initial Vitals Temp Pulse Resp BP Pulse Ox 97.3 F 94 15 125/71 100 11/22/16 06:48 08/04/17 06:48 11/22/16 06:48 11/22/16 06:48 11/22/16 06:48 Vital Signs Reviewed: Yes Appearance: Positive: Well-Appearing, Well-Nourished, Pain Distress Skin: Positive: Warm, Skin Color Reflects Adequate Perfusion, Other - Diffuse macular papular erythematous rash of total body, worse on back than front Head/Face: Positive: Normal Head/Face Inspection Eyes: Positive: Conjunctiva Clear ENT: Positive: Normal ENT inspection Neck: Positive: Supple, Nontender, Other: - No JVD Respiratory/Lung Sounds: Positive: Clear to Auscultation, Breath Sounds Present , Other - No respiratory distress. Negative: Rales Cardiovascular: Positive: RRR, Leg Edema Left - 2+, Leg Edema Right - 2+, Other - pulses are normal, brisk capillary refill; R femoral calf at catheterization site is unremarkable: no edema, well healed, pulses intact.. Negative: Murmur Abdomen Description: Positive: Nontender, Soft Musculoskeletal: Positive: Strength/ROM Intact, Edema Left, Edema Right Neurological: Positive: Sensory/Motor Intact, Alert, Oriented to Person Place, Time, Facial Symmetry, Speech Normal Psychiatric: Positive: Normal Diagnostics - Vital Signs Vital Signs Temp Pulse Resp BP Pulse Ox 11/22/16 06:48 97.3 F 94 15 125/71 100 - Laboratory Lab Results: Lab Results 11/22/16 11/22/16 11/22/16 Range/Units 07:25 07:25 07:25 WBC 5.0 (3.5-10.8) 10^3/ul RBC 4.83 (4.0-5.4) 10^6/ul Hgb 14.8 (12.0-16.0) g/dl Hct 44 (35-47) % MCV 91 (80-97) fL MCH 31 (27-31) pg MCHC 34 (31-36) g/dl RDW 12 (10.5-15) % Plt Count 224 (150-450) 10^3/ul MPV 9 (7.4-10.4) um3 Neut % (Auto) 80.6 (38-83) % Lymph % (Auto) 5.0 L (25-47) % Wharton % (Auto) 3.1 (1-9) % Eos % (Auto) 10.9 H (0-6) % Baso % (Auto) 0.4 (0-2) % Absolute Neuts (auto) 4.0 (1.5-7.7) 10^3/ul Absolute Lymphs (auto) 0.3 L (1.0-4.8) 10^3/ul Absolute Monos (auto) 0.2 (0-0.8) 10^3/ul Absolute Eos (auto) 0.5 (0-0.6) 10^3/ul Absolute Basos (auto) 0 (0-0.2) 10^3/ul Absolute Nucleated RBC 0.01 10^3/ul Nucleated RBC % 0.1 ESR 6 (0-14) mm/Hr INR (Anticoag Therapy) 1.02 (0.89-1.11) APTT 27.0 (26.0-36.3) seconds Sodium 133 (133-145) mmol/L Potassium 4.5 (3.5-5.0) mmol/L Chloride 102 (101-111) mmol/L Carbon Dioxide 23 (22-32) mmol/L Anion Gap 8 (2-11) mmol/L BUN 14 (6-24) mg/dL Creatinine 0.53 (0.51-0.95) mg/dL Est GFR ( Amer) 159.0 (>60) Est GFR (Non-Af Amer) 123.6 (>60) BUN/Creatinine Ratio 26.4 H (8-20) Glucose 103 H (70-100) mg/dL Lactic Acid (0.5-2.0) mmol/L Calcium 7.8 L (8.6-10.3) mg/dL Magnesium 1.5 L (1.9-2.7) mg/dL Total Bilirubin 0.40 (0.2-1.0) mg/dL AST 117 H (13-39) U/L ALT 65 H (7-52) U/L Alkaline Phosphatase 48 (34-104) U/L Total Creatine Kinase 2693 H (10-223) U/L CK-MB (CK-2) 178.5 H (0.6-6.3) ng/mL Troponin I 1.73 H* (<0.04) ng/mL C-Reactive Protein 156.47 H (< 5.00) mg/L C-React Prot High Sens 152.33 mg/L B-Natriuretic Peptide ( - 100) pg/mL Total Protein 4.7 L (6.4-8.9) g/dL Albumin 2.5 L (3.2-5.2) g/dL Globulin 2.2 (2-4) g/dL Albumin/Globulin Ratio 1.1 (1-3) Beta HCG, Quant 2.18 mIU/mL 11/22/16 11/22/16 Range/Units 07:25 07:25 WBC (3.5-10.8) 10^3/ul RBC (4.0-5.4) 10^6/ul Hgb (12.0-16.0) g/dl Hct (35-47) % MCV (80-97) fL MCH (27-31) pg MCHC (31-36) g/dl RDW (10.5-15) % Plt Count (150-450) 10^3/ul MPV (7.4-10.4) um3 Neut % (Auto) (38-83) % Lymph % (Auto) (25-47) % Wharton % (Auto) (1-9) % Eos % (Auto) (0-6) % Baso % (Auto) (0-2) % Absolute Neuts (auto) (1.5-7.7) 10^3/ul Absolute Lymphs (auto) (1.0-4.8) 10^3/ul Absolute Monos (auto) (0-0.8) 10^3/ul Absolute Eos (auto) (0-0.6) 10^3/ul Absolute Basos (auto) (0-0.2) 10^3/ul Absolute Nucleated RBC 10^3/ul Nucleated RBC % ESR (0-14) mm/Hr INR (Anticoag Therapy) (0.89-1.11) APTT (26.0-36.3) seconds Sodium (133-145) mmol/L Potassium (3.5-5.0) mmol/L Chloride (101-111) mmol/L Carbon Dioxide (22-32) mmol/L Anion Gap (2-11) mmol/L BUN (6-24) mg/dL Creatinine (0.51-0.95) mg/dL Est GFR ( Amer) (>60) Est GFR (Non-Af Amer) (>60) BUN/Creatinine Ratio (8-20) Glucose (70-100) mg/dL Lactic Acid 2.6 H* (0.5-2.0) mmol/L Calcium (8.6-10.3) mg/dL Magnesium (1.9-2.7) mg/dL Total Bilirubin (0.2-1.0) mg/dL AST (13-39) U/L ALT (7-52) U/L Alkaline Phosphatase (34-104) U/L Total Creatine Kinase (10-223) U/L CK-MB (CK-2) (0.6-6.3) ng/mL Troponin I (<0.04) ng/mL C-Reactive Protein (< 5.00) mg/L C-React Prot High Sens mg/L B-Natriuretic Peptide 381 H ( - 100) pg/mL Total Protein (6.4-8.9) g/dL Albumin (3.2-5.2) g/dL Globulin (2-4) g/dL Albumin/Globulin Ratio (1-3) Beta HCG, Quant mIU/mL Result Diagrams: 11/22/16 07:25 11/22/16 07:25 Lab Statement: Any lab studies that have been ordered have been reviewed, and results considered in the medical decision making process. - Radiology CXR Xray Interpretation: No Acute Changes - IMPRESSION: No active cardiopulmonary dz is noted. Radiology Interpretation Completed By: Radiologist - EKG 657 Cardiac Rate: NL - 90 bpm EKG Rhythm: Sinus Rhythm EKG Interpretation: nml AV, nml IV conduction time, nml QTC, axis 103, poor R- wave in V1-V3 EKG Comparison: No Significant Change - from 11/19/2016 Re-Evaluation - Re-Evaluation 1 Re-Evaluation Time: 10:19 Change: Unchanged Comment: Discussing diagnostic results and hospitalist consult with pt. Pt will be admitted. Pt voiced understanding. Complex Multi-Symp Course/Dx Course Of Treatment: Pt's medical reports from 11/19 - 11/20/16 reviewed. Allergies noted. Pt medications reviewed this visit. Elevated BP (125/71) but has current hypertension diagnosis. A 46 y/o F presents to ED with current c/o diffuse edema ongoing for past week. Pt had eval for NSTEMI and left cardiac catherization on 11/19/16, dx of acute myopericarditis with unknown etiology on 11/21/2016 upon dispo from [facility]. Associated sx for today's visit include decreased urinary output, diffuse rash, diffuse body aches, severe weight gain (approx 25 lbs) over past two days. Denies CP, SOB, discrete calf pain. Rates pain as 10 out of 10. Has Rx for Percocet, last taken at 0400. Aggravating factors: ADL, unable to walk, shower. She was given Lasix PO yesterday, and released 500 ml. The rash initially began on her back, and did not respond to medication and worsened. Still on Colchicine, but did not take it today. Pt has an appt with Hr Administrator, Dr. Moore, in one week, as well as an appt with a pulmonology next week. Pt works at [facility]. Pt given Morphine, Lasix in ED. Lab results show lactic acid is 2.6, trop is 1.73; is aware of lactic and trop at 0800. BNP, glucose, Bun/C ratio, total creatinine kinase, CK-MB (CK-2) values are all elevated. Both CK and CRP are increased from levels at DC. EKG shows SR of 90 bpm with nml AV, nml IV conduction time, nml QTC, axis 103, poor R-wave progression in V1-V3. EKG is not significantly changed from previous one on 2016. CXR read shows no cardiopulmonary dz. Consulted with hospitalist who will admit pt for IV diuresis and further evaluation. - Diagnoses Differential Diagnoses/HQI/PQRI: Metabolic Abnormality, Other - CHF, myocarditis , rhabdomyolysis Provider Diagnoses: Myocarditis, Edema, Elevated troponin, Elevated lactic acid level, Elevated CK , Rash of body - Physician Notifications Discussed Care Of Patient With: Kassi Courtney - hospitalist Time Discussed With Above Provider: 10:16 Instructed by Provider To: Admit As Inpatient Discharge - Discharge Plan Condition: Stable Disposition: ADMITTED TO [facility] The documentation as recorded by the Lio lindsay SooYoung accurately reflects the service I personally performed and the decisions made by , Laura Mirza MD.
[2016-11-23] MEDS: oxyCODONE/Acetamin 5/325 MG* TAB PO PRN ×5 (05:56→22:25)
[2016-11-23 06:07] LABS: Hematocrit 44 % (35-47); Mean Corpuscular HGB Conc 34 g/dl (31-36); Mean Corpuscular Hemoglobin 31 pg (27-31); Mean Corpuscular Volume 91 fL (80-97); Mean Platelet Volume 8 um3 (7.4-10.4); Red Cell Distribution Width 12 % (10.5-15); White Blood Count 3.4 10^3/ul (3.5-10.8)
[2016-11-23 06:17] LABS: Add Diff/Slide Review? Slide Review Added; Comments Flag Yes
[2016-11-23 06:23] LABS: BUN/Creatinine Ratio 42.1 (8-20); Calcium 7.6 mg/dL (8.6-10.3); EGFR African American 146.2 (>60); EGFR Non-African American 113.7 (>60); Magnesium 2.1 mg/dL (1.9-2.7); Potassium 4.3 mmol/L (3.5-5.0)
[2016-11-23 07:01] LABS: Eosinophils % 11 % (0-6); Immature Granulocytes 40 % (0-9); Neutrophil % 36 % (38-83); RBC Morphology Normal (Normal); Reactive Lymph % 1 % (0-6)
[2016-11-23] MEDS: Naproxen TAB* 375 MG PO SCH ×2 (09:42→20:12)
[2016-11-23] MEDS: Citalopram TAB* 40 MG PO SCH (09:43)
[2016-11-23] MEDS: ALPRAZolam TAB* 0.25 MG PO SCH (09:43)
[2016-11-23] MEDS: Colchicine* 0.6 MG TAB PO SCH ×2 (09:44→20:13)
[2016-11-23] MEDS: Triamcinolone 0.025% OINT * 15 GM TUBE TOPICAL SCH ×3 (09:47→20:13)
[2016-11-23] MEDS: Enoxaparin(*) 40 MG/0.4 ML SYR SUBCUT SCH (13:28)
--- NOTE | 2016-11-23 14:09 | PN ---
Subjective Date of Service: 11/23/16 Interval History: Ms. Naylor states that she is feeling somewhat better today. She continues to have pain in her shoulders but less pain in her back. Her current pain medication regimen is adequate. She continues to have a generalized itchy rash. She reports improvement in her edema. She denies other complaint including chest pain, SOB, nausea, or abdominal pain. Objective Active Medications: Alprazolam (Xanax Tab*) 0.25 mg PO DAILY [facility] Citalopram Hydrobromide (Celexa Tab*) 40 mg PO QAM RAND Colchicine (Colcrys*) 0.6 mg PO BID RAND Diphenhydramine HCl (Benadryl Iv*) 50 mg SLOW PUSH Q6H PRN Enoxaparin Sodium (Lovenox(*)) 40 mg SUBCUT Q24H RAND Hydroxyzine HCl (Atarax Tab*) 25 mg PO Q4H PRN Naproxen (Naprosyn Tab*) 375 mg PO BID RAND Oxycodone/Acetaminophen (Percocet 5/325 Tab*) 1 tab PO Q4H PRN Oxycodone/Acetaminophen (Percocet 5/325 Tab*) 2 tab PO Q4H PRN Triamcinolone Acetonide (Triamcinolone 0.025% Oint *) 1 applic TOPICAL TID [facility] Vital Signs 11/22/16 11/22/16 11/22/16 15:28 15:48 17:48 Temperature 97.8 F Pulse Rate 93 Respiratory 16 18 16 Rate Blood Pressure 105/72 (mmHg) O2 Sat by Pulse 100 Oximetry 11/22/16 11/22/16 11/22/16 19:48 19:58 21:58 Temperature Pulse Rate Respiratory 17 17 18 Rate Blood Pressure (mmHg) O2 Sat by Pulse Oximetry 11/22/16 11/23/16 11/23/16 23:54 00:01 01:54 Temperature 97.8 F Pulse Rate 87 Respiratory 17 17 Rate Blood Pressure 105/60 (mmHg) O2 Sat by Pulse 99 Oximetry 11/23/16 11/23/16 11/23/16 03:22 05:56 07:34 Temperature 97.5 F 97.7 F Pulse Rate 94 91 Respiratory 18 17 20 Rate Blood Pressure 104/65 98/50 (mmHg) O2 Sat by Pulse 97 96 Oximetry 11/23/16 11/23/16 11/23/16 07:56 09:43 09:44 Temperature Pulse Rate Respiratory 16 18 18 Rate Blood Pressure (mmHg) O2 Sat by Pulse Oximetry 11/23/16 11:44 Temperature Pulse Rate Respiratory 16 Rate Blood Pressure (mmHg) O2 Sat by Pulse Oximetry Oxygen Devices in Use Now: None Appearance: Female lying in bed in NAD Eyes: No Scleral Icterus Ears/Nose/Mouth/Throat: Mucous Membranes Moist Neck: Trachea Midline Respiratory: Symmetrical Chest Expansion and Respiratory Effort, Clear to Auscultation Cardiovascular: NL Sounds; No Murmurs; No JVD, - - Minimal edema to R LE Abdominal: NL Sounds; No Tenderness; No Distention Lymphatic: No Cervical Adenopathy Skin: - - minimal generalized papules Neurological: Alert and Oriented x 3, NL Muscle Strength and Tone Nutrition: Taking PO's Result Diagrams: 11/23/16 05:59 11/23/16 05:59 Additional Lab and Data: Lab Results 11/22/16 11/22/16 11/22/16 Range/Units 07:25 07:25 07:25 WBC 5.0 (3.5-10.8) 10^3/ul RBC 4.83 (4.0-5.4) 10^6/ul Hgb 14.8 (12.0-16.0) g/dl Hct 44 (35-47) % MCV 91 (80-97) fL MCH 31 (27-31) pg MCHC 34 (31-36) g/dl RDW 12 (10.5-15) % Plt Count 224 (150-450) 10^3/ul MPV 9 (7.4-10.4) um3 Neut % (Auto) 80.6 (38-83) % Lymph % (Auto) 5.0 L (25-47) % Foster % (Auto) 3.1 (1-9) % Eos % (Auto) 10.9 H (0-6) % Baso % (Auto) 0.4 (0-2) % Absolute Neuts (auto) 4.0 (1.5-7.7) 10^3/ul Absolute Lymphs (auto) 0.3 L (1.0-4.8) 10^3/ul Absolute Monos (auto) 0.2 (0-0.8) 10^3/ul Absolute Eos (auto) 0.5 (0-0.6) 10^3/ul Absolute Basos (auto) 0 (0-0.2) 10^3/ul Absolute Nucleated RBC 0.01 10^3/ul Nucleated RBC % 0.1 ESR 6 (0-14) mm/Hr INR (Anticoag Therapy) 1.02 (0.89-1.11) APTT 27.0 (26.0-36.3) seconds Sodium 133 (133-145) mmol/L Potassium 4.5 (3.5-5.0) mmol/L Chloride 102 (101-111) mmol/L Carbon Dioxide 23 (22-32) mmol/L Anion Gap 8 (2-11) mmol/L BUN 14 (6-24) mg/dL Creatinine 0.53 (0.51-0.95) mg/dL Est GFR ( Amer) 159.0 (>60) Est GFR (Non-Af Amer) 123.6 (>60) BUN/Creatinine Ratio 26.4 H (8-20) Glucose 103 H (70-100) mg/dL Lactic Acid (0.5-2.0) mmol/L Calcium 7.8 L (8.6-10.3) mg/dL Magnesium 1.5 L (1.9-2.7) mg/dL Total Bilirubin 0.40 (0.2-1.0) mg/dL AST 117 H (13-39) U/L ALT 65 H (7-52) U/L Alkaline Phosphatase 48 (34-104) U/L Total Creatine Kinase 2693 H (10-223) U/L CK-MB (CK-2) 178.5 H (0.6-6.3) ng/mL Troponin I 1.73 H* (<0.04) ng/mL C-Reactive Protein 156.47 H (< 5.00) mg/L C-React Prot High Sens 152.33 mg/L B-Natriuretic Peptide ( - 100) pg/mL Total Protein 4.7 L (6.4-8.9) g/dL Albumin 2.5 L (3.2-5.2) g/dL Globulin 2.2 (2-4) g/dL Albumin/Globulin Ratio 1.1 (1-3) Beta HCG, Quant 2.18 mIU/mL 11/22/16 11/22/16 Range/Units 07:25 07:25 WBC (3.5-10.8) 10^3/ul RBC (4.0-5.4) 10^6/ul Hgb (12.0-16.0) g/dl Hct (35-47) % MCV (80-97) fL MCH (27-31) pg MCHC (31-36) g/dl RDW (10.5-15) % Plt Count (150-450) 10^3/ul MPV (7.4-10.4) um3 Neut % (Auto) (38-83) % Lymph % (Auto) (25-47) % Foster % (Auto) (1-9) % Eos % (Auto) (0-6) % Baso % (Auto) (0-2) % Absolute Neuts (auto) (1.5-7.7) 10^3/ul Absolute Lymphs (auto) (1.0-4.8) 10^3/ul Absolute Monos (auto) (0-0.8) 10^3/ul Absolute Eos (auto) (0-0.6) 10^3/ul Absolute Basos (auto) (0-0.2) 10^3/ul Absolute Nucleated RBC 10^3/ul Nucleated RBC % ESR (0-14) mm/Hr INR (Anticoag Therapy) (0.89-1.11) APTT (26.0-36.3) seconds Sodium (133-145) mmol/L Potassium (3.5-5.0) mmol/L Chloride (101-111) mmol/L Carbon Dioxide (22-32) mmol/L Anion Gap (2-11) mmol/L BUN (6-24) mg/dL Creatinine (0.51-0.95) mg/dL Est GFR ( Amer) (>60) Est GFR (Non-Af Amer) (>60) BUN/Creatinine Ratio (8-20) Glucose (70-100) mg/dL Lactic Acid 2.6 H* (0.5-2.0) mmol/L Calcium (8.6-10.3) mg/dL Magnesium (1.9-2.7) mg/dL Total Bilirubin (0.2-1.0) mg/dL AST (13-39) U/L ALT (7-52) U/L Alkaline Phosphatase (34-104) U/L Total Creatine Kinase (10-223) U/L CK-MB (CK-2) (0.6-6.3) ng/mL Troponin I (<0.04) ng/mL C-Reactive Protein (< 5.00) mg/L C-React Prot High Sens mg/L B-Natriuretic Peptide 381 H ( - 100) pg/mL Total Protein (6.4-8.9) g/dL Albumin (3.2-5.2) g/dL Globulin (2-4) g/dL Albumin/Globulin Ratio (1-3) Beta HCG, Quant mIU/mL Assess/Plan/Problems-Billing Assessment: Ms. Naylor is a 46 yo female with a PMH of who was re-admitted on 11/22/16 with edema, decreased urine output and rash. - Patient Problems (1) Acute myopericarditis Comment: - Echo from 11/21/16 shows increase in pericardial effusion though no evidence of tamponade. Troponin peaked during last hospitalization. - CRP 156, WBC down to 3.4 with 40% bands (?). Afebrile. - Cardiology consult pending. Plan for repeat echo tomorrow. Likely myopericarditis though the etiology of this is unknown. The patient has a papular rash spread to her chest and arms. ? viral illness as the precipitant. - RACHELE, double stranded DNA antibody, and rheumatoid factor pending. Hepatitis and HIV negative, lyme pending. - Will continue colchicine 06.mg BID x1 month and aleve standing x1 week then as needed. (2) Edema Comment: - S/P lasix with some improvement. - Plan for an additional dose now. (3) Papular rash Comment: - ? viral illness vs contact dermatitis. Avoid allergens and monitor. (4) Rhabdomyolysis Comment: - CPK persistently elevated since last admission. - Likely related to auto-immune or viral process. (5) DVT prophylaxis Comment: - Lovenox. (6) Full code status Status and Disposition: Convert from OBV to inpatient with need for > 2 day LOS. Anticipate discharge to home when medically stable.
[2016-11-23] MEDS ORDERED: Furosemide IV* 10 MG/ML 2 ML VIAL (20 MG) IV ONE (15:18)
[2016-11-24] MEDS: oxyCODONE/Acetamin 5/325 MG* TAB PO PRN ×5 (03:08→22:09)
[2016-11-24 05:42] LABS: Comments Flag Yes; Hematocrit 40 % (35-47); Hemoglobin 13.5 g/dl (12.0-16.0); Mean Corpuscular HGB Conc 34 g/dl (31-36); Mean Corpuscular Hemoglobin 30 pg (27-31); Mean Corpuscular Volume 91 fL (80-97); Mean Platelet Volume 8 um3 (7.4-10.4); Red Blood Count 4.46 10^6/ul (4.0-5.4); Red Cell Distribution Width 12 % (10.5-15); White Blood Count 3.1 10^3/ul (3.5-10.8)
[2016-11-24 05:54] LABS: Calcium 7.9 mg/dL (8.6-10.3); EGFR African American 137.8 (>60); EGFR Non-African American 107.2 (>60); Potassium 4.5 mmol/L (3.5-5.0)
[2016-11-24] MEDS: Citalopram TAB* 40 MG PO SCH (08:29)
[2016-11-24] MEDS: Colchicine* 0.6 MG TAB PO SCH ×2 (08:29→20:20)
[2016-11-24] MEDS: ALPRAZolam TAB* 0.25 MG PO SCH (08:29)
[2016-11-24] MEDS: Naproxen TAB* 375 MG PO SCH ×2 (08:29→20:29)
[2016-11-24] MEDS: Triamcinolone 0.025% OINT * 15 GM TUBE TOPICAL SCH ×3 (10:52→20:29)
--- NOTE | 2016-11-24 11:33 | ECHO ---
Patient: HUNTER CAN [facility] Rec#: [id number] : 1970 Date: 11/24/2016 Age: 46y Height: 157 cm / 61.8 in Weight: 67 kg / 147.7 lbs Sex: F BSA: 1.68 Room#: 453 Admit Date#: 11/22/2016 Type: Inpatient Referring: Fany Szymanski NP Reading: González Brown MD Application Coordinator: Marylu Mac RDCS,RDMS CC: Fredi Warren MD Transthoracic Echocardiogram Indication: Pericardial effusion, Myopericarditis BP: 99/56 HR: 93 Rhythm: NSR Findings History: Myopericarditis, pericardial effusion, MYKE, HTN, HLD, smoker. Technical Comments: The study quality is good. Left Ventricle: Moderate concentric left ventricular hypertrophy is observed.LV diastolic wall thicknesses measured 18 mm at the septum and 15mm posteriorly in an off axis view that might exaggerate the thickenesses. There is increased basal septal hypertrophy noted without evidence of an increased gradient across the left ventricular outflow tract. The estimated ejection fraction is 55-60%. There is an E to A reversal in the mitral valve flow pattern suggestive of diastolic dysfunction. Right Ventricle: The right ventricular chamber size and systolic function are within normal limits. The right ventricle wall thickness is mildly increased. Right Atrium: The interatrial septum bowed toward the left. Pericardium: A pericardial effusion is visualized.with minor RA inversion. There is a small pericardial effusion. PLAX 0.6cm (RV); PSAX (@ paps) 0.8cm (RV) and 0.8cm (LV inferior); A4C 0.5cm (LV distal lateral) and 1.3cm (RV); A2C 0.5cm (apex) and 0.5cm (inferior); subcostal 1.5cm (RA) and 0.9cm (RV) There are no signs of significant hemodynamic compromise.Doppler: respiratory variation 2% in MV and 4% in LVOT, There is a circumferential pericardial effusion. Venous: There is a greater than 50% respiratory change in the inferior vena cava dimension. Conclusions Moderate concentric left ventricular hypertrophy is observed .LV diastolic wall thicknesses measured 18 mm at the septum and 15mm posteriorly in an off axis view that might exaggerate the thickenesses. The estimated ejection fraction is 55-60%. There is an E to A reversal in the mitral valve flow pattern suggestive of diastolic dysfunction. There is a small pericardial effusion with minor RA inversion. There are no signs of significant hemodynamic compromise by 2d or doppler. Similar to 8.4.17 with slight improvement in pericardial effusion size and doppler pararemeters.
--- NOTE | 2016-11-24 11:54 | PN ---
Subjective Date of Service: 11/24/16 Interval History: Patient seen and examined at bedside. Denies fever, chills, shortness of breath , chest discomfort, N/V/D. Pt states that she gradually started not feeling well during her workouts at the gym and then noted painless swelling in her right LE last week. Pt feels that she is diuresing since receiving IV lasix yesterday and is urinating more at a time, then she was previously. She also notes pain in her shoulders that radiated down her arms. She feels like the rash is improving. Pt states that on October 24 her healthy dog was playing in the yard and they found it , she wonders if she could have picked up something from the dog. She states that the dog was fully immunized. Tele: Sinus rhythm, rate 60-80's. Family History: Unchanged from Admission Social History: Unchanged from Admission Past Medical History: Unchanged from Admission Objective Active Medications: Alprazolam (Xanax Tab*) 0.25 mg PO DAILY [facility] Citalopram Hydrobromide (Celexa Tab*) 40 mg PO QAM [facility] Colchicine (Colcrys*) 0.6 mg PO BID [facility] Diphenhydramine HCl (Benadryl Iv*) 50 mg SLOW PUSH Q6H PRN Reason: ITCHING Enoxaparin Sodium (Lovenox(*)) 40 mg SUBCUT Q24H [facility] Hydroxyzine HCl (Atarax Tab*) 25 mg PO Q4H PRN Reason: ITCHING Naproxen (Naprosyn Tab*) 375 mg PO BID [facility] Oxycodone/Acetaminophen (Percocet 5/325 Tab*) 1 tab PO Q4H PRN Reason: PAIN - MILD TO MODERATE Oxycodone/Acetaminophen (Percocet 5/325 Tab*) 2 tab PO Q4H PRN Reason: PAIN - MODERATE TO SEVERE Triamcinolone Acetonide (Triamcinolone 0.025% Oint *) 1 applic TOPICAL TID [facility] Vital Signs 11/23/16 11/23/16 11/23/16 14:34 15:20 16:34 Temperature 97.8 F Pulse Rate 89 Respiratory 16 20 16 Rate Blood Pressure 97/49 (mmHg) O2 Sat by Pulse 95 Oximetry 11/23/16 11/23/16 11/23/16 18:37 19:16 20:34 Temperature 97.7 F Pulse Rate 91 Respiratory 16 16 18 Rate Blood Pressure 91/51 (mmHg) O2 Sat by Pulse 96 Oximetry 11/23/16 11/24/16 11/24/16 22:25 00:13 00:25 Temperature 97.7 F Pulse Rate 86 Respiratory 16 16 18 Rate Blood Pressure 104/54 (mmHg) O2 Sat by Pulse 95 Oximetry 11/24/16 11/24/16 11/24/16 03:08 04:23 05:05 Temperature 98.2 F Pulse Rate 87 Respiratory 20 16 17 Rate Blood Pressure 112/55 (mmHg) O2 Sat by Pulse 96 Oximetry 11/24/16 11/24/16 11/24/16 07:42 08:29 10:29 Temperature 98.2 F Pulse Rate 84 Respiratory 18 18 18 Rate Blood Pressure 99/56 (mmHg) O2 Sat by Pulse 98 Oximetry 11/24/16 11/24/16 10:50 11:30 Temperature 98.8 F Pulse Rate 95 Respiratory 16 18 Rate Blood Pressure 106/47 (mmHg) O2 Sat by Pulse 96 Oximetry Oxygen Devices in Use Now: None Appearance: NAD, laying in bed Ears/Nose/Mouth/Throat: Mucous Membranes Moist Respiratory: Symmetrical Chest Expansion and Respiratory Effort, Clear to Auscultation Cardiovascular: NL Sounds; No Murmurs; No JVD, RRR Abdominal: NL Sounds; No Tenderness; No Distention Extremities: - - Edema to bilateral LE right > left, and bilateral UE left > right Skin: - - generalized papular rash Neurological: Alert and Oriented x 3, NL Muscle Strength and Tone Lines/Tubes/Other Access: Clean, Dry and Intact Peripheral IV - site benign Nutrition: Taking PO's Result Diagrams: 11/24/16 05:28 11/24/16 05:28 Additional Lab and Data: Assess/Plan/Problems-Billing Assessment: Ms. Naylor is a 46 yo female with a PMH of who was re-admitted on 11/22/16 with edema, decreased urine output and rash. - Patient Problems (1) Acute myopericarditis Code(s): I30.9 - ACUTE PERICARDITIS, UNSPECIFIED SNOMED Code(s): 83686987 Comment: - Echo from 11/22/16 shows increase in pericardial effusion though no evidence of tamponade. Troponin peaked during last hospitalization. - Echo from 11/24/16 shows LV diastolic wall increased thickness, diastolic dysfunction, slight improvement pericardial effusion - CRP 156 now increased to ~ 273, WBC down to 3.1 with 40% bands (?). - Afebrile. - Cardiology consult, input appreciated. - Troponin continues to trend down - Likely myopericarditis though the etiology of this is unknown. The patient has a papular rash spread to her chest and arms. ? viral illness as the precipitant. - RACHELE, double stranded DNA antibody, and rheumatoid factor pending. Hepatitis and HIV negative, lyme pending. - Will check Coxsackie A and B Ab and Antistreptolysin O Titer - Continue aleve standing x1 week then as needed. - Stop colchicine (2) Edema Code(s): R60.9 - EDEMA, UNSPECIFIED SNOMED Code(s): 478713832 Comment: - S/P lasix with some improvement. - Hold on additional lasix for now. (3) Papular rash Code(s): R21 - RASH AND OTHER NONSPECIFIC SKIN ERUPTION SNOMED Code(s): 303876936 Comment: - ? viral illness vs contact dermatitis. Avoid allergens and monitor. (4) Rhabdomyolysis Code(s): M62.82 - RHABDOMYOLYSIS SNOMED Code(s): 128131919 Comment: - CPK persistently elevated since last admission. - Likely related to auto-immune or viral process. - Will continue to trend CPK (5) DVT prophylaxis Code(s): TKO6459 - SNOMED Code(s): 441686175 Comment: - Lovenox. (6) Full code status Code(s): Z78.9 - OTHER SPECIFIED HEALTH STATUS SNOMED Code(s): 919292576 Status and Disposition: Inpatient with need for > 2 day LOS. Anticipate discharge to home when medically stable.
[2016-11-24 12:27] LABS: C Reactive Protein 273.85 mg/L (< 5.00)
[2016-11-24 12:35] LABS: Troponin I 0.97 ng/mL (<0.04)
[2016-11-24] MEDS: Enoxaparin(*) 40 MG/0.4 ML SYR SUBCUT SCH (12:56)
[2016-11-24 13:55] LABS: Erythrocyte Sed Rate 11 mm/Hr (0-14)
[2016-11-24 15:24] LABS: Manual Entry Verification HAN0055; Mono Internal Control QC Line Present
--- NOTE | 2016-11-24 15:37 | CONS ---
CC: González Brown MD; Dr. Warren CARDIOLOGY CONSULTATION: DATE OF CONSULT: 11/24/16 CONSULTING PHYSICIAN: Dr. Delatorre. REASON FOR EVALUATION: Myopericarditis. HISTORY OF PRESENT ILLNESS: This is a very pleasant 46-year-old woman who reports that about 3 weeks ago, she developed a rash in her back which she attributed to lotion. She put some triamcinolone cream on the back and thought it was improving. She said that about a week or two ago, she started having some eruptions on her arms, trunk, and legs that was pruritic. She tried using the triamcinolone cream. About last Friday, she went to do her usual vigorous exercise routine at a body pump class. She said it was a little harder than usual. On Friday, she developed achiness in her chest and some shortness of breath and came to the emergency room. At that time, she was found to have an elevated troponin at 1.54 and a CK of 2664 and MB of 55.8. She had nonspecific ST-T changes. Her CRP was 76 and her BNP was 113. CTA showed no evidence of pulmonary embolism and she reported some swelling in her lower extremities for a few days. Because of those findings, she underwent cardiac catheterization. She had an echo which revealed LVH and a pericardial effusion. She underwent cardiac catheterization on November 19. At that time, the left main was free of any significant disease. LAD had proximal mid ectasia with borderline aneurysmal artery. Small first diagonal branch that had a 60% to 70% ostial lesion and a very small caliber vessel. The left circumflex and right coronary were large caliber with minimal irregularities, no significant obstructive disease. EF was normal at 65%. She subsequently was treated with colchicine and IV fluids. According to the patient, she received approximately 5 L of IV fluid over the course of her first few days of hospitalization. She went home on November 21. She said that her legs were so puffy that it was painful for her to stand and walk. She also continued to have achiness in her upper chest and into her arms which was worse with movement, but not with inspiration or lying flat or sitting up. Because of her swollen legs and shoulder pain and a weig ht gain of approximately 25 pounds, she returned on Friday. She said she had a lot of difficulty sleeping because of the discomfort. She was readmitted here and her labs included troponin that was 1.73 and peaked on 11/20/16 at 2.69. Her C- reactive protein which had been 76 on 11/19/16 and 87 on 11/21/16, was 156 on 11/22/16 and 273 on 11/24/16, and her CKs on 11/19/16 were 2664, went down to 2000 on 11/21/16, and up to 2693 on 11/22/16, and down to 1694 today. She denies any syncope or palpitations. No exertional substernal chest discomfort. She denies orthopnea. She does continue to have tightness in her legs. especially with standing. She did get Lasix yesterday and had a decrease in her diuresis with a drop in her weight from 150 on 11/22/16 to 146 today. She drinks about 1 glass of alcohol a week. She denies tobacco use. She denies any fevers. She does have chills. Since she has been in the hospital, no vomiting or diarrhea. She does state she had some mild nausea during this illness. She says no one else in the house is sick except for one of her children who had strep a couple of weeks ago and was treated and had recurrent strep, and is being retreated. She has a history of obesity treated with bariatric surgery in 2013. Prior to that, she had hypertension on multiple blood pressure medications and hyperlipidemia, but she has had none since then and not needed to take any medication since the bariatric surgery. She denies diabetes. She has a history anxiety and depression treated with Lexapro 20 mg and alprazolam.ss PMH; obesity, HTN resolved after wt loss. PAST SURGICAL HISTORY: Includes bariatric surgery and some D and Cs. Bariatric surgery was in September of 2013. MEDICATIONS: Her home mediations were: 1. Oxycodone. 2. Naprosyn 375 b.i.d. 3. Lexapro 20 mg q.a.m. 4. Colchicine 0.6 mg b.i.d. 5. Alprazolam 0.25 mg daily. As an inpatient. she is on all those medications plus triamcinolone ointment. FAMILY HISTORY: Her mother is alive and has Parkinson's and coronary artery disease, she is 83. Father is alive with hypertension at 82. She had a paternal aunt who had coronary artery disease in her 50s, and she has a sister who has hypertension and had carotid dissection and a smoker. She was on no medications as an outpatient prior to admission a week ago; however, she was sent home on colchicine. SOCIAL HISTORY: She is , her is at the bedside. She has 6 children, 4 of whom were delivered and 2 adopted. 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 NKDA REVIEW OF SYSTEMS: Review of systems x10 was negative, except as above. PHYSICAL EXAM: She is a well-developed, well-nourished female in no apparent distress. Blood pressure 106/47, heart rate 95, no significant JVD. Carotids 2 + without bruits. Cardiac Exam: S1 and S2 with a 2/6 holosystolic murmur at the left lower sternal border which seemed to increase with inspiration and radiate to the apex. Chest was clear. No CVAT. Abdomen: Bowel sounds present , nontender, no hepatosplenomegaly. Femoral pulses intact without bruits. Distal pulses intact with 1+ edema in the lower extremities. Negative Homans sign. Motor strength 5/5 bilaterally. Deep tendon reflexes were 2/4. Alert and oriented x3. There is a diffuse maculopapular rash over the trunk, more prominent in the left lower abdomen and on the calves and arms. DIAGNOSTIC STUDIES/LAB DATA: Include a sodium of 131, potassium of 4.5, carbon dioxide of 25, BUN of 30, creatinine of 0.6. BUN to creatinine ratio of 50. Calcium low at 7.9. Magnesium at 2.1 yesterday. CK of 1694. Troponin down to 0.97 today. CRP up to 273.85. BMP was 381 on 11/22/16. INR on 11/22/16 was normal. Today, white count low at 3.1, hemoglobin 13.5, hematocrit of 40, and platelet count of 221. Sed rate on 11/22/16 was 6, repeat is pending today. She had eosinophilia 12.1 today. Chest x-ray from 11/22/16, there was no active cardiopulmonary disease and echocardiogram from today revealed a small pericardial effusion with EF of 55% to 60%. She had LVH which was moderate and more prominent at the upper septum, may be exaggerated due to the off-axis measurements. Abnormal diastolic function. Moderate LVH. No hemodynamic evidence of significant compromise due to pericardial effusion. Compared to 08/05, there seemed to be a slight improvement in the pericardial effusion size and Doppler parameters. Her EKG from 11/19/16 revealed sinus rhythm with nonspecific ST changes, poor R - wave progression, rightward axis. Repeat EKG from 11/19/16 revealed similar tracing and EKG from 11/22/16 revealed poor R-wave progression with mild improvement and ST-T changes. IMPRESSION: My impression is that Mrs. Naylor has an illness of unclear etiology with evidence of myopericarditis and marked elevation of CRP. She also had LVH of unclear etiology on her echo with relatively unremarkable EKG, raising the possibility of infiltrative cardiomyopathy. I suspect that her volume retention was due to a combination of diastolic and systolic dysfunction in the setting of marked volume challenge and a viral illness. She also had a relatively low albumin of 2.5 on 11/22/16 down from her normal of 3.8 to 4 on . I suspect there is some degree of third spacing as well. The etiology of her presentation is unclear, but given the rash, the myopericarditis, and the myalgias, and myositis, possibilities include an autoimmune process including Still disease, rheumatoid arthritis, or polydermatomyositis, or a viral illness , perhaps coxsackie. So far markers for hepatitis and for Lyme have been negative. Her hemodynamics and volume status appear to be improving slowly. I feel reluctant to give her more Lasix due to potential for intravascular volume depletion and hypotension. For the time being, I have recommended the following : 1. I would suggest stopping the colchicine given the neutropenia and the potential for colchicine to cause neutropenia and the lack of clinical efficacy so far. 2. I would follow for resolution of her CKs and troponins. 3. I would pursue workup for rheumatologic cause of her symptoms and infectious cause. 4. I have discussed the case with Fany Gudino and suggested adding coxsackie titers. 5. Consider the other possibility of a tick-borne illness other than Lyme, perhaps babesiosus. 6. Consider an ID consult 7. The etiology of her LVH is unclear, which raises the possibility of a hypertrophic cardiomyopathy versus infiltrative cardiomyopathy. We will add on an SPEP and consider cardiac MRI at some point. I would suggest refraining from vigorous exertion in the meantime while she recovers. I explained to her that further workup and convalescence is necessary before approving her to return to work. [id number]/[facility] #: [id number] KALIAD
[2016-11-25] MEDS: oxyCODONE/Acetamin 5/325 MG* TAB PO PRN ×6 (02:09→23:44)
[2016-11-25 05:52] LABS: Hematocrit 41 % (35-47); Hemoglobin 13.7 g/dl (12.0-16.0); Mean Corpuscular HGB Conc 34 g/dl (31-36); Mean Corpuscular Hemoglobin 31 pg (27-31); Mean Corpuscular Volume 91 fL (80-97); Mean Platelet Volume 8 um3 (7.4-10.4); Red Blood Count 4.48 10^6/ul (4.0-5.4); Red Cell Distribution Width 13 % (10.5-15)
[2016-11-25 06:00] LABS: Comments Flag Yes
[2016-11-25 06:01] LABS: Add Diff/Slide Review? Slide Review Added; White Blood Count 2.8 10^3/ul (3.5-10.8)
[2016-11-25 06:04] LABS: EGFR African American 127.9 (>60); EGFR Non-African American 99.5 (>60); Potassium 4.7 mmol/L (3.5-5.0)
[2016-11-25 06:14] LABS: Troponin I 1.03 ng/mL (<0.04)
[2016-11-25] MEDS: Naproxen TAB* 375 MG PO SCH ×2 (08:31→20:38)
[2016-11-25] MEDS: Citalopram TAB* 40 MG PO SCH (08:32)
[2016-11-25] MEDS: ALPRAZolam TAB* 0.25 MG PO SCH (08:32)
--- NOTE | 2016-11-25 10:23 | PN ---
Subjective Date of Service: 11/25/16 Interval History: Patient seen and examined at bedside. Ms. Naylor expressed frustration this morning that she has had to wait for test results and for a rheumatology consult. She feels her rash is better and feels her edema has improved slightly. She reports improvement in her pain but "wants answers" and has inquired about seeing a shuttle inspector at [place]. Patient found information for outpatient rheumatology clinic in [place]. However, we discussed that the patient would likely have to restart her workup over at a new facility. Patient understands this and is in agreement with current plan to stay at [facility] and see rheumatology tomorrow. Denies fever/chills, CP, SOB, abd pain, n/v. No new concerns or complaints. Telemetry: SR 90s Family History: Unchanged from Admission Social History: Unchanged from Admission Past Medical History: Unchanged from Admission Objective Active Medications: Alprazolam (Xanax Tab*) 0.25 mg PO DAILY [facility] Last Admin: 11/25/16 08:32 Dose: 0.25 mg Citalopram Hydrobromide (Celexa Tab*) 40 mg PO QAM [facility] Last Admin: 11/25/16 08:32 Dose: 40 mg Diphenhydramine HCl (Benadryl Iv*) 50 mg SLOW PUSH Q6H PRN PRN Reason: ITCHING Last Admin: 11/22/16 12:52 Dose: 50 mg Enoxaparin Sodium (Lovenox(*)) 40 mg SUBCUT Q24H [facility] Last Admin: 11/24/16 12:56 Dose: 40 mg Hydroxyzine HCl (Atarax Tab*) 25 mg PO Q4H PRN PRN Reason: ITCHING Naproxen (Naprosyn Tab*) 375 mg PO BID [facility] Last Admin: 11/25/16 08:31 Dose: 375 mg Oxycodone/Acetaminophen (Percocet 5/325 Tab*) 1 tab PO Q4H PRN PRN Reason: PAIN - MILD TO MODERATE Last Admin: 11/23/16 22:25 Dose: 1 tab Oxycodone/Acetaminophen (Percocet 5/325 Tab*) 2 tab PO Q4H PRN PRN Reason: PAIN - MODERATE TO SEVERE Last Admin: 11/25/16 10:12 Dose: 2 tab Triamcinolone Acetonide (Triamcinolone 0.025% Oint *) 1 applic TOPICAL TID [facility] Last Admin: 11/24/16 20:29 Dose: 1 applic Vital Signs 11/24/16 11/24/16 11/24/16 10:29 10:50 11:30 Temperature 98.8 F Pulse Rate 95 Respiratory 18 16 18 Rate Blood Pressure 106/47 (mmHg) O2 Sat by Pulse 96 Oximetry 11/24/16 11/24/16 11/24/16 12:50 13:03 14:22 Temperature Pulse Rate Respiratory 18 16 18 Rate Blood Pressure (mmHg) O2 Sat by Pulse Oximetry 11/24/16 11/24/16 11/24/16 15:48 16:22 18:01 Temperature 98.3 F Pulse Rate 90 Respiratory 16 18 18 Rate Blood Pressure 108/49 (mmHg) O2 Sat by Pulse 95 Oximetry 11/24/16 11/24/16 11/24/16 19:32 20:00 20:01 Temperature 98.3 F Pulse Rate 87 Respiratory 16 16 16 Rate Blood Pressure 102/58 (mmHg) O2 Sat by Pulse 95 Oximetry 11/24/16 11/25/16 11/25/16 22:09 00:08 00:09 Temperature 98.2 F Pulse Rate 89 Respiratory 16 16 16 Rate Blood Pressure 112/54 (mmHg) O2 Sat by Pulse 95 Oximetry 11/25/16 11/25/16 11/25/16 02:09 03:52 04:14 Temperature 98.2 F Pulse Rate 91 Respiratory 16 16 16 Rate Blood Pressure 113/55 (mmHg) O2 Sat by Pulse 96 Oximetry 11/25/16 11/25/16 11/25/16 06:04 07:51 08:00 Temperature 97.4 F Pulse Rate 91 Respiratory 16 22 22 Rate Blood Pressure 104/49 (mmHg) O2 Sat by Pulse 95 Oximetry 11/25/16 11/25/16 11/25/16 08:04 08:32 10:12 Temperature Pulse Rate Respiratory 20 22 20 Rate Blood Pressure (mmHg) O2 Sat by Pulse Oximetry Oxygen Devices in Use Now: None Appearance: Middle aged female, lying in bed, NAD Eyes: No Scleral Icterus Ears/Nose/Mouth/Throat: Clear Oropharnyx, Mucous Membranes Moist Neck: NL Appearance and Movements; NL JVP Respiratory: Symmetrical Chest Expansion and Respiratory Effort, Clear to Auscultation Cardiovascular: NL Sounds; No Murmurs; No JVD, RRR Abdominal: NL Sounds; No Tenderness; No Distention Extremities: - - 2+ edema to BLE R>L and BUE edema L<R Skin: - - rash to torso, legs, upper neck and back Neurological: Alert and Oriented x 3, NL Muscle Strength and Tone Lines/Tubes/Other Access: Clean, Dry and Intact Peripheral IV Nutrition: Taking PO's Result Diagrams: 11/25/16 05:38 11/25/16 05:38 Additional Lab and Data: Assess/Plan/Problems-Billing Assessment: Ms. Naylor is a 46 yo female with a PMH of who was re-admitted on 11/22/16 with edema, decreased urine output and rash. - Patient Problems (1) Acute myopericarditis Code(s): I30.9 - ACUTE PERICARDITIS, UNSPECIFIED Comment: Echo from 11/22/16 shows increase in pericardial effusion, though no evidence of tamponade. Troponin peaked during last hospitalization. Echo from 11/24/16 shows LV diastolic wall increased thickness, diastolic dysfunction, slight improvement pericardial effusion. CRP now increased 273, WBC down to 3.1 with 40% bands (?). Afebrile. Appreciate cardiology consult. Likely myopericarditis, though the etiology of this is unknown. The patient has a papular rash that has spread to her chest and arms. ? viral illness as the precipitant. RACHELE, double stranded DNA antibody, and rheumatoid factor pending. Hepatitis, HIV, antistreptolysin, and lyme serologies negative Coxsackie A and B Ab pending Colchicine discontinued, will continue naproxen. (2) Edema Code(s): R60.9 - EDEMA, UNSPECIFIED Comment: Received IV furosemide on admission Will hold on additional furosemide for now, given risk for intravascular volume depletion. SCDs (pt does not tolerated KEVIN hose) (3) Papular rash Code(s): R21 - RASH AND OTHER NONSPECIFIC SKIN ERUPTION Comment: ? viral illness vs contact dermatitis. Also question of dermatomyositis, given presentation and coinciding myositis and myopericarditis, as well as edema Appreciate ID and rheumatology consults RACHELE, rhuematoid factor, Mi-2, Nhung-1, U1RNP pending Start prednisone 60 mg (1 mg/kg dosing) Avoid allergens and monitor (4) Rhabdomyolysis Code(s): M62.82 - RHABDOMYOLYSIS Comment: Showing mild improvement CPK persistently elevated since last admission. Likely related to auto-immune or viral process. Continue to trend (5) DVT prophylaxis Comment: SQ Lovenox (6) Full code status Code(s): Z78.9 - OTHER SPECIFIED HEALTH STATUS Status and Disposition: Inpatient with need for > 2 day LOS. Anticipate discharge to home when medically stable.
--- NOTE | 2016-11-25 13:13 | CONS ---
CONSULTATION REPORT: DATE OF CONSULT: 11/25/16. REQUESTING PHYSICIAN: Dr. Estes. CONSULTING SERVICE: Infectious Disease. REASON FOR CONSULT: Rash, myositis. IMPRESSION: Macular, more recently papular rash, which was pruritic over her shoulders and back, initially on the arms, upper and lower extremities bilateral myositis as well as myopericarditis, elevated C-reactive protein, no fever. Differential diagnosis includes Infection including enterovirus at this time of the year, hepatitis B, hepatitis C and HIV testing were all negative. Given that she has proximal muscle weakness, pruritic rash, I do think this is more likely to be autoimmune including dermatomyositis. 2. Pericardial effusion. Elevated troponin, which is declining. Ejection fraction 60% to 65% on transthoracic echocardiogram. RECOMMENDATIONS: Agree with holding antibiotics as there is not evidence of an infection causing her symptoms and having a rheumatology evaluation with Dr. Moore. Would defer empiric steroids and further testing to him. HISTORY OF PRESENT ILLNESS: This is a 46-year-old woman with a rash for about a month, that started on her upper back, over her shoulders. It was itchy. She thought may be it was due to the lotion she uses. She then started to develop some achiness in her upper arms and upper legs with sweats and then some chest pain and dyspnea. She came to hospital. She had a CK of 26,000. It fluctuated since then. It is down to 14,000 now. Her troponin was 1.5, peaked to 2.5, down to 1 today. She has had no fever during this episode. Her C- reactive protein was initially 75, was up to 275. She has the rash spread a little bit under her arms and proximal legs. She has been using topical steroids with some improvement in the itching and the rash on her back. Now she has some decreased pigment on her face and shoulders. She thinks some of it is due to sun damage. She has had a negative Lyme, hepatitis B, C, and HIV testing and Monospot was negative. Urinalysis was negative. White blood cell count was 5, it is down to 2.8. Platelets are normal. Blood cultures are negative. Urine cultures are negative. Chest x-ray negative. She continues to have bilateral arm swelling, left greater than right with muscle pain and weakness doing things like brushing her hair, she can do it for a minute or so and then has to stop. It is hard for her to get up from a seated position. She has had no dysuria, abdominal pain, or diarrhea. She had chest pain previously which has resolved. Her dyspnea is improving as well. PAST MEDICAL HISTORY: 1. Gastric bypass. 2. Anxiety. 3. Depression. 4. Urinary incontinence. MEDICATIONS: 1. Xanax. 2. Celexa. 3. Enoxaparin. 4. Naproxen. 5. Hydroxyzine. 6. Oxycodone. ALLERGIES: No known drug allergies. SOCIAL HISTORY: She lives in [place]. She is a labor and delivery nurse here. She lives with her and two adult children, two young children. One with strep throat recently. No one else has been sick. No travel. They have a pet dog and cats. FAMILY HISTORY: Father with rheumatic fever and Parkinson. He is alive in his 80s. Mother is alive in her 80s, healthy. REVIEW OF SYSTEMS: All negative for full review of systems except as noted above. PHYSICAL EXAM: Vital Signs: Temperature 36, heart rate 90, respiratory rate 10 , blood pressure 104/49, O2 saturation 95% on room air. In general, he is awake , not in distress. HEENT: There is no conjunctival hemorrhage. Oropharynx, without lesions. Neurologic: She is oriented x3. Follows all commands. Moves all his extremities. Neck is supple without nuchal rigidity. Lymph Nodes : There is no inguinal, axillary, or epitrochlear lymphadenopathy. Heart is regular rate and rhythm without murmurs, rubs or gallops. Lungs are clear to auscultation bilaterally. Abdomen: Soft, nontender, and nondistended. There are bowel sounds present. Skin: She has deep pigmentation over both shoulders and forehead. There is no rash on her back currently. On her left forearm and antecubital fossa, there is scattered erythematous papules and macules. Musculoskeletal: There is no spine tenderness to palpation. She has bilateral upper extremity edema and muscle tenderness, particularly proximal muscles. There is trace lower extremity edema bilaterally. No muscle tenderness. LABORATORY DATA: Creatinine 0.6, CRP 273, white blood cell count 2.8, hemoglobin 13.7, platelets 234. Urinalysis negative. Please see impressions and recommendations outlined above, which I have discussed with Corrine Morrison NP. Thanks for asking me to see Ms. Naylor in consultation. [id number]/[facility] #: [id number] JLUIS
[2016-11-25] MEDS: predniSONE TAB* 20 MG PO SCH (14:00)
[2016-11-25] MEDS: Enoxaparin(*) 40 MG/0.4 ML SYR SUBCUT SCH (14:01)
[2016-11-25] MEDS: Triamcinolone 0.025% OINT * 15 GM TUBE TOPICAL SCH ×3 (14:03→19:48)
[2016-11-25 14:20] LABS: Rheumatoid Factor <15 IU/mL (<15)
[2016-11-25 14:34] LABS: Sm (Smith) IgG Antibody <0.2 U
[2016-11-26] MEDS: oxyCODONE/Acetamin 5/325 MG* TAB PO PRN ×2 (04:45→09:47)
[2016-11-26 05:13] VITALS: BP 114/57
[2016-11-26 05:29] LABS: Hematocrit 34 % (35-47); Hemoglobin 11.5 g/dl (12.0-16.0); Mean Corpuscular HGB Conc 34 g/dl (31-36); Mean Corpuscular Hemoglobin 30 pg (27-31); Mean Corpuscular Volume 91 fL (80-97); Mean Platelet Volume 8 um3 (7.4-10.4); Red Blood Count 3.77 10^6/ul (4.0-5.4); Red Cell Distribution Width 13 % (10.5-15); White Blood Count 5.4 10^3/ul (3.5-10.8)
[2016-11-26 05:45] LABS: BUN/Creatinine Ratio 63.2 (8-20); C Reactive Protein 342.02 mg/L (< 5.00); Calcium 8.3 mg/dL (8.6-10.3); EGFR African American 146.2 (>60); EGFR Non-African American 113.7 (>60); Potassium 5.1 mmol/L (3.5-5.0)
--- NOTE | 2016-11-26 07:42 | CONSULT ---
Consult Consult: Ms. Naylor is a 46 year old woman admitted with pericarditis, diffuse edema, a maculopapular rash and muscular weakness. A workup has revealed an elevated CPK (that is fluctuating). Given her cutanous and muscle symptoms, dermatomyositis should be considered. She is symptomatically improved on Prednisone, which can be continued at the present dose. Follow up skin biopsy and labs
[2016-11-26] MEDS: ALPRAZolam TAB* 0.25 MG PO SCH (09:44)
[2016-11-26] MEDS: Citalopram TAB* 40 MG PO SCH (09:46)
[2016-11-26] MEDS: Naproxen TAB* 375 MG PO SCH (09:46)
[2016-11-26] MEDS: predniSONE TAB* 20 MG PO SCH (09:46)
--- NOTE | 2016-11-26 09:46 | PN ---
Subjective Date of Service: 11/26/16 Interval History: Patient seen and examined at bedside. She report significant improvement in her symptoms with her first dose of prednisone. She is eager for discharge. She feels the edema is improving and rash is no longer itching. No other new complaints. Family History: Unchanged from Admission Social History: Unchanged from Admission Past Medical History: Unchanged from Admission Objective Active Medications: Alprazolam (Xanax Tab*) 0.25 mg PO DAILY [facility] Last Admin: 11/25/16 08:32 Dose: 0.25 mg Citalopram Hydrobromide (Celexa Tab*) 40 mg PO QAM [facility] Last Admin: 11/25/16 08:32 Dose: 40 mg Diphenhydramine HCl (Benadryl Iv*) 50 mg SLOW PUSH Q6H PRN PRN Reason: ITCHING Last Admin: 11/22/16 12:52 Dose: 50 mg Enoxaparin Sodium (Lovenox(*)) 40 mg SUBCUT Q24H [facility] Last Admin: 11/25/16 14:01 Dose: 40 mg Hydroxyzine HCl (Atarax Tab*) 25 mg PO Q4H PRN PRN Reason: ITCHING Naproxen (Naprosyn Tab*) 375 mg PO BID [facility] Last Admin: 11/25/16 20:38 Dose: 375 mg Oxycodone/Acetaminophen (Percocet 5/325 Tab*) 1 tab PO Q4H PRN PRN Reason: PAIN - MILD TO MODERATE Last Admin: 11/23/16 22:25 Dose: 1 tab Oxycodone/Acetaminophen (Percocet 5/325 Tab*) 2 tab PO Q4H PRN PRN Reason: PAIN - MODERATE TO SEVERE Last Admin: 11/26/16 04:45 Dose: 2 tab Prednisone (Deltasone Tab*) 60 mg PO DAILY [facility] Last Admin: 11/25/16 14:00 Dose: 60 mg Triamcinolone Acetonide (Triamcinolone 0.025% Oint *) 1 applic TOPICAL TID [facility] Last Admin: 11/25/16 19:48 Dose: 1 applic Vital Signs 11/25/16 11/25/16 11/25/16 10:12 10:32 11:31 Temperature 97.7 F Pulse Rate 90 Respiratory 20 20 22 Rate Blood Pressure 107/59 (mmHg) O2 Sat by Pulse 96 Oximetry 11/25/16 11/25/16 11/25/16 12:12 12:15 14:01 Temperature 97.7 F Pulse Rate 91 Respiratory 18 22 16 Rate Blood Pressure 107/59 (mmHg) O2 Sat by Pulse 97 Oximetry 11/25/16 11/25/16 11/25/16 16:01 16:10 19:19 Temperature 97.7 F 97.7 F Pulse Rate 81 81 Respiratory 18 20 20 Rate Blood Pressure 115/62 110/54 (mmHg) O2 Sat by Pulse 95 96 Oximetry 11/25/16 11/25/16 11/25/16 19:44 20:00 21:44 Temperature Pulse Rate Respiratory 16 16 16 Rate Blood Pressure (mmHg) O2 Sat by Pulse Oximetry 11/25/16 11/26/16 11/26/16 23:44 01:44 04:43 Temperature 98.2 F 98.5 F Pulse Rate 81 90 Respiratory 16 16 16 Rate Blood Pressure 108/59 114/57 (mmHg) O2 Sat by Pulse 96 94 Oximetry 11/26/16 11/26/16 11/26/16 04:45 06:25 08:15 Temperature Pulse Rate Respiratory 16 16 24 Rate Blood Pressure (mmHg) O2 Sat by Pulse Oximetry Oxygen Devices in Use Now: None Appearance: Female patient, lying in bed, NAD Eyes: No Scleral Icterus Ears/Nose/Mouth/Throat: Clear Oropharnyx, Mucous Membranes Moist Neck: NL Appearance and Movements; NL JVP Respiratory: Symmetrical Chest Expansion and Respiratory Effort, Clear to Auscultation Cardiovascular: NL Sounds; No Murmurs; No JVD, RRR Abdominal: NL Sounds; No Tenderness; No Distention Neurological: Alert and Oriented x 3, NL Muscle Strength and Tone Lines/Tubes/Other Access: Clean, Dry and Intact Peripheral IV Nutrition: Taking PO's Result Diagrams: 11/26/16 04:46 11/26/16 04:46 Additional Lab and Data: Assess/Plan/Problems-Billing Assessment: Ms. Naylor is a 46 yo female with a PMH of who was re-admitted on 11/22/16 with edema, decreased urine output and rash. - Patient Problems (1) Acute myopericarditis Code(s): I30.9 - ACUTE PERICARDITIS, UNSPECIFIED Comment: Echo from 11/22/16 shows increase in pericardial effusion, though no evidence of tamponade. Troponin peaked during last hospitalization. Echo from 11/24/16 shows LV diastolic wall increased thickness, diastolic dysfunction, slight improvement pericardial effusion. CRP now increased 273, WBC down to 3.1 with 40% bands (?). Afebrile. Appreciate cardiology consult. Likely myopericarditis, though the etiology of this is unknown. The patient has a papular rash that has spread to her chest and arms. ? viral illness as the precipitant. RACHELE, double stranded DNA antibody, and rheumatoid factor pending. Hepatitis, HIV, antistreptolysin, and lyme serologies negative Coxsackie A and B Ab pending Colchicine discontinued, will continue naproxen prn. Outpatient cardiology follow-up, scheduled for this Friday. (2) Edema Code(s): R60.9 - EDEMA, UNSPECIFIED Comment: Received IV furosemide on admission Will hold on additional furosemide for now, given risk for intravascular volume depletion. SCDs (pt does not tolerated KEVIN hose) (3) Papular rash Code(s): R21 - RASH AND OTHER NONSPECIFIC SKIN ERUPTION Comment: ? viral illness vs contact dermatitis. Also question of dermatomyositis, given presentation and coinciding myositis and myopericarditis, as well as edema Appreciate ID and rheumatology consults RACHELE, rhuematoid factor, Mi-2, Nhung-1, U1RNP pending Start prednisone 60 mg (1 mg/kg dosing) Avoid allergens and monitor Skin biopsy pending Outpatient follow-up with Dr. Moore scheduled for Friday. (4) Rhabdomyolysis Code(s): M62.82 - RHABDOMYOLYSIS Comment: Showing mild improvement CPK persistently elevated since last admission. Likely related to auto-immune or viral process. (5) DVT prophylaxis Comment: SQ Lovenox (6) Full code status Code(s): Z78.9 - OTHER SPECIFIED HEALTH STATUS Status and Disposition: Inpatient with need for > 2 day LOS. Discharge to home with outpatient follow- up.
[2016-11-26] MEDS: Triamcinolone 0.025% OINT * 15 GM TUBE TOPICAL SCH (10:40)
--- NOTE | 2016-11-26 13:39 | CONS ---
CONSULTATION REPORT: DATE OF CONSULT: 11/26/16 CONSULTING PHYSICIANS: Corrine Morrison NP, Dr. Estes, and Dr. Doll. REASON FOR CONSULTATION: Evaluate for myositis. CHIEF COMPLAINT: Muscle weakness. HISTORY OF PRESENT ILLNESS: Ms. Naylor is a 46-year-old woman who was recently admitted with symptoms of myopericarditis. Workup revealed an elevated CPK, which has been fluctuating and she was also noted to have an erythematous papular rash along her upper chest wall region. Since her hospital stay, she was started on prednisone per my recommendations yesterday and she has noted significant symptomatic improvement in her symptoms at 60 mg daily. She continues to have the rash, which she noted several weeks ago, which she first noted on exposure to the sun. She has a history of dermatitis and had tried triamcinolone as an outpatient but she continued to have rash but this is also improving since she started prednisone. She had a skin biopsy yesterday to evaluate for the possibility of dermatomyositis. She has been as an outpatient having symptoms of achiness, diffuse swelling and edema especially in the lower extremities and workup at an urgent care center was negative except for Anthony cyst. However, she continued to have symptoms as well as muscular weakness and the feeling of having significant fatigue. She does not report any recent travel. She does have 6 children she takes care of and she has some pets, one of whom recently as a dog, but otherwise no sick illnesses. She has not been exposed any other sick contacts. During her hospital stay, she was seen by Cardiology and she was started initially on colchicine for her symptoms of pericarditis but she developed leukopenia and so the colchicine is on hold. The leukopenia has improved today. She also has had an infectious disease workup with Dr. Doll as well but no acute infection has been found. Symptomatically, again she is feeling better on the prednisone. She currently denies any shortness of breath, chest pain, or rib pain, although she did present with these symptoms when she was initially admitted. She has also had some significant weight gain. She has kept up with her Pap smear screening and other preventative healthcare measures except for recent physical exam. She has had a cardiac catheterization, which revealed no significant coronary artery disease as well as stress test and echocardiogram. Her symptoms were most consistent with myopericarditis. She also had the diffuse rash as noted above, which is improving. Of note, she has a history of Devin-en-Y surgery in 2013 with 100-pound weight loss following surgery. She has been seen by hematology in the past for anemia and has been treated with IV iron in the remote past and she also gets monthly B12 injections. She has had some decreased urine output as well at home as well as some hesitancy. As noted above, her CPK was elevated but her CRP has been markedly elevated and continues to rise. Troponin is 1.73 in the ER. PAST MEDICAL HISTORY: Includes: 1. Acute myopericarditis. 2. Elevated CPK with rhabdomyolysis. 3. Dermatitis. 4. History of hypertension. 5. History of hyperlipidemia. 6. Anxiety. 7. Depression. 8. History of urinary incontinence. PAST SURGICAL HISTORY: Includes Devin-en-Y surgery in 2013, left-sided lipoma removal from the left mid abdomen and history of D and C. MEDICATIONS: As an [id number] medication, she only rarely takes Aleve or Advil. She denies taking any muscular or muscle building supplements and does not take creatine, otherwise she has been on Percocet as needed. She has also been on Lexapro. She rarely takes Naproxen and she is on alprazolam and she was initially started as noted above on prednisone 60 mg daily. ALLERGIES: No known drug allergies. FAMILY HISTORY: Notable for mother with Parkinson's and history of hypothyroidism, hyperlipidemia, hypertension, and coronary artery disease. There is a family history of rheumatic fever but no other rheumatic history in the past. There is an aunt with history of breast cancer. SOCIAL HISTORY: She is a nonsmoker. She drinks alcohol occasionally. She denies any illicit drug use. She works as a registered nurse at [employer]. She is . She has a supportive and 4 biological children. REVIEW OF SYSTEMS: General: Has had fatigue and weight gain as noted above. Skin: As noted above. Cardiac: Denies current chest pain. Pulmonary: Denies acute shortness of breath. GI: Has had weight gain. Extremities: She has noticed some edema in the left upper extremity to an extent more than the right upper extremity as well as edema in the lower extremities. Neurologic: Denies focal weakness. : Urinary hesitancy. Skin: Rash as noted above. Psychiatric: There are some anxiety regarding her condition. Other 14-point review of systems were reviewed and were otherwise negative. Musculoskeletal: She denies currently any joint pain or swelling in the joints. PHYSICAL EXAM: She is a pleasant woman, in no acute distress. O2 sats were normal. Temperature 97.3, heart rate of 86, respiratory rate of 18, initial blood pressure 106/67. HEENT: Normocephalic, atraumatic. Pupils equal, round, and reactive to light and accommodate. Extraocular movements were intact. Oral mucosa was normal and moist. Neck was supple. Lymph: No adenopathy. Endocrine: No thyromegaly. Vascular: No JVP elevated. No bruits. Cardiac: Regular rate and rhythm. Normal S1 and S2. She does have peripheral edema with left upper extremity swelling and right lower extremity swelling too but is nonpitting. Abdomen: Bowel sounds positive. Soft, nontender, nondistended with no organomegaly. No hepatosplenomegaly. Musculoskeletal: There is no cyanosis or clubbing noted. There is full range of motion of the joints. No synovitis. Skin: She did appear to have some dermatitis of the upper back and scattered patches of papular rashes on the right upper back as well as the right upper chest wall but she says that she has improved. Neurologic: Nonfocal. Motor strength 5/5 in the upper and lower extremities. Musculoskeletal: No synovitis of the joints. Psychiatric: Pleasant. Alert and oriented x3. Affect appropriate. DIAGNOSTIC STUDIES/LAB DATA: She had a white count of 5, hemoglobin 14.8. Sodium of 133, CRP of 66.47 but has risen since then. Albumin of 2.5. CK elevated in varying ranges. Chest x-ray showed no acute cardiopulmonary disease. Echocardiogram showed poor R- wave progression, V1 through V2 similar to prior EKGs. ASSESSMENT AND PLAN: Ms. Naylor is a 46-year-old woman with diffuse edema and elevated CPK, rash, and elevated C-reactive protein. She has had serologic evaluation for lupus, some of these serologies are still pending. Given her cutaneous and muscular symptoms, I am concerned about the possibility of dermatomyositis. I think the skin biopsy results will be helpful and I will follow these up. If these are not revealing and she continues to be symptomatic and her CPK does not improve, then we should consider a muscle biopsy for diagnostic purposes; she is already starting to note an improvement with Prednisone. I also recommend checking a myositis panel, checking a TSH for this admission and we should also follow up on the serologies as noted below. If dermatomyositis is diagnosed, then we should also consider the possibility of paraneoplastic process as rarely this condition has been associated with solid organ malignancies such as ovarian malignancy. She has already benefitting from prednisone. I spoke today with Dr. Doll from Infectious Disease, who will arrange for left upper extremity sonogram as she has a little more edema in the left upper extremity than the right as it is somewhat asymmetric. Would continue the prednisone for now, follow up the myositis panel, recheck the TSH, and follow the C-reactive protein (which continues to rise). In terms of her myopericarditis, I agree with holding the colchicine as she had transient leukopenia and following up with cardiology recommendations. In terms of urinary hesitancy, she will possibly need urology workup as an outpatient. We will continue to follow daily. TIME SPENT: With the patient was greater than 60 minutes; greater than 50% of the time spent counseling the patient. [id number]/[facility] #: [id number] MTDD
[2016-11-26 18:55] LABS: Albumin 1.8 g/dL (3.4-4.7); Gamma Globulin 0.7 g/dL (0.6-1.6); Total Protein(PEP) 4.3 g/dL (6.3 - 7.9)
[2016-11-26 18:55] LABS: Albumin 1.8 g/dL (3.4-4.7); Gamma Globulin 0.8 g/dL (0.6-1.6); Total Protein(PEP) 4.5 g/dL (6.3 - 7.9)
--- NOTE | 2016-11-27 03:59 | DS ---
CC: Dr. Fredi Warren; Dr. Moore; Dr. Sameer Doll; Dr. González Brown; Dr. Gutierrez * MEDICINE DISCHARGE SUMMARY: DATE OF ADMISSION: 11/22/16 DATE OF DISCHARGE: 11/26/16 PROVIDER: Vanesa España NP. ATTENDING PHYSICIAN: Dr. Kassi Santiago * (as dictated by Vanesa España NP) PRIMARY CARE PROVIDER: Dr. Fredi Warren. PRIMARY PIPE LINE WALKER: Dr. Nighat Gutierrez. CONSULTING SHEARER OPERATOR: Dr. Jamir Moore. CONSULTING INFECTIOUS DISEASE: Dr. Sameer Doll. CONSULTING PIPE LINE WALKER: Dr. González Brown. CONSULTING PATHOLOGIST: Dr. Vaishali Morocho. PRIMARY DISCHARGE DIAGNOSES: 1. 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 2. Papular rash. 3. Edema. 4. Acute myopericarditis. SECONDARY DISCHARGE DIAGNOSES: 1. Rhabdomyolysis diagnosed earlier November 2016. 2. History of hypertension, not on medication. 3. History of hyperlipidemia, not on medication. 4. Anxiety. 5. Depression. 6. History of urinary incontinence. 7. History of Devin-en-Y surgery. MEDICATIONS: At discharge: 1. Percocet 5/325 one to two tabs q.4 hours p.r.n. 2. Naproxen 375 mg b.i.d. p.r.n. 3. Lexapro 20 mg q.a.m. 4. Alprazolam 0.25 mg daily. 5. Prednisone 60 mg daily. 6. Triamcinolone ointment 1 application topical t.i.d. p.r.n. HOSPITAL COURSE OF STAY: For full details, please refer to the full medical record in the H and P provided on 11/22/16. In summary, Ms. Naylor is a 46-year -old female who was recently discharged from the hospital on 11/21/16 after being admitted for concern of chest pain and suspected rhabdomyolysis. The patient had persistently elevated CPK during that admission and also had presented with an erythematous papular rash on the chest, back and upper extremities. She was discharged and within 24 hours had returned back to the ER with concern for worsening pain, spread of rash, diffuse edema and significant weight gain. The patient was initially diuresed with IV Lasix. We did repeat an echocardiogram, which did show comparable LV function, although the patient did have evidence of an enlarging pericardial effusion, which did improve on a followup echocardiogram. Immunological workup was started, which included checking a rheumatoid factor, RACHELE, Nhung-1, Mi-2, Sm IgG, anti-dsDNA, anti -SRP as well as viral studies including Lyme hepatitis, mono and antistreptolysin. Most of these results have been negative although some of the immunologic studies are still pending. From a cardiology standpoint, again the patient had 2 echoes, one on 11/22/16 and one on 11/24/16 and that did show the pericardial effusion without evidence of tamponade. Again, this did improve from 11/22/16 to 11/24/16 following diuresis. The echo from 11/24/16 also showed LV diastolic wall increased thickness and diastolic dysfunction. The patient was advised to follow up with Cardiology as the cardiac MRI may be indicated in the future. With regards to her acute myopericarditis, we did discontinue her colchicine as it did not seem to be providing any significant benefit and the patient began to have leukopenia. In regards to her edema, the patient again did receive IV furosemide upon admission, which did help her some diuresis. The patient did well with the SCDs but did not tolerate KEVIN hose given that she had evidence of rash to her lower extremities, and this caused significant itching. In regards to her rash, again this was suspected as a potential dermatomyositis given the patient's presentation and coinciding myositis and myopericarditis. ID and Rheumatology both saw the patient and the patient was started on prednisone 60 mg with good effect. A skin biopsy was performed by our pathologist and the results from the biopsy are pending. Dr. Moore did see the patient prior to discharge on 11/26/16 and his initial note is present although official consult is still pending. In discussion with Dr. Moore, it was determined that the patient should be discharged home on the current dose of prednisone at 60 mg and then should keep her appointment on Friday for outpatient followup as well as review of results that are still pending. All of this was reviewed with the patient, who is in agreement with the current plan. She has no new concerns or complaints. She reports improvement in the pain and swelling to her extremities. The patient did previously have edema with notable asymmetrical swelling with negative Doppler studies. The patient advised to follow up with Cardiology and Rheumatology this Friday as scheduled and is to follow up with her PCP, appointment with PCP is pending. CONCERNS AT DISCHARGE: Ms. Naylor is discharged to home on 11/26/16. FOLLOWUP NEEDS: The patient needs to meet with cardiology, Rheumatology. She may also benefit from a Urology followup if urinary hesitancy persists. The immunological studies are still pending. The patient's TSH is normal. DIET: May resume previous diet. ACTIVITY: As tolerated. CONDITION: Improved, stable. DISPOSITION: To home. TIME SPENT: Time spent on this discharge was approximately 60 minutes. Again, this is only a brief summary of the patient's hospital course of stay. For full details, please refer to the full medical record. If you have any further questions or need further assistance, please feel free to contact me at [phone]. VANESA ESPAÑA NP [id number]/JERONIMO #: [id number] JLUIS
== END 2016-11-26 13:00 | disposition home or self-care (01) | DRG 346 ==
LOC: ED 06:39 → MEDTELE 10:26 → OBSVTOIN 11-23 14:00
PROVIDERS: ADMIT Internal Medicine; ATTEND Internal Medicine
PROC: 0HBBXZX Excision of Right Upper Arm Skin, External Approach, Diagnostic (ICD-10-PCS; principal; 2016-11-25)
DX: M33.99 Dermatopolymyositis, unspecified with other organ involvement (principal); I31.9 Disease of pericardium, unspecified; M62.82 Rhabdomyolysis; L08.0 Pyoderma; F41.9 Anxiety disorder, unspecified; F32.9 Major depressive disorder, single episode, unspecified; I51.4 Myocarditis, unspecified; R60.9 Edema, unspecified; Z98.84 Bariatric surgery status; Z83.49 Family history of other endocrine, nutritional and metabolic diseases; Z82.49 Family history of ischemic heart disease and other diseases of the circulatory system; Z80.3 Family history of malignant neoplasm of breast; Z79.891 Long term (current) use of opiate analgesic; Z79.899 Other long term (current) drug therapy
CPT/HCPCS: 11100; 36415; 71010; 80048; 80053; 80074; 81003; 81015; 82550; 82553; 83516; 83605; 83735; 83880; 84155; 84165; 84443; 84484; 84702; 85025; 85610; 85652; 85730; 86038; 86060; 86140; 86141; 86225; 86235; 86308; 86431; 86618; 86644; 86645; 86658; 86703; 87040; 87086; 88305; 88346; 88350; 93005; 93308; A9270-GY; G0378; J1200; J1650; J1940; J2270; J3475; J7512

== ENCOUNTER 2017-03-30 04:34 | Emergency (ER) | payer BC ==
[2017-03-30] MEDS ORDERED: Naloxone* 0.4 MG/ML 1 ML VIAL IV PUSH ONE (05:04)
[2017-03-30] MEDS ORDERED: Ondansetron INJ* 2 MG/ML VIAL IV ONE (05:04)
[2017-03-30 05:33] LABS: Hematocrit 37 % (35-47); Hemoglobin 12.5 g/dl (12.0-16.0); Mean Corpuscular HGB Conc 34 g/dl (31-36); Mean Corpuscular Hemoglobin 31 pg (27-31); Mean Corpuscular Volume 91 fL (80-97); Mean Platelet Volume 7 um3 (7.4-10.4); Red Cell Distribution Width 15 % (10.5-15); White Blood Count 7.5 10^3/ul (3.5-10.8)
[2017-03-30 05:49] LABS: ALT 15 U/L (7-52); AST 20 U/L (13-39); Albumin 3.8 g/dL (3.2-5.2); Alkaline Phosphatase 49 U/L (34-104); Anion Gap 5 mmol/L (2-11); BUN/Creatinine Ratio 24.2 (8-20); Blood Urea Nitrogen 15 mg/dL (6-24); CO2 Carbon Dioxide 30 mmol/L (22-32); Calcium 8.5 mg/dL (8.6-10.3); Chloride 103 mmol/L (101-111); EGFR African American 132.1 (>60); EGFR Non-African American 102.7 (>60); Globulin 2.6 g/dL (2-4); Glucose 117 mg/dL (70-100); Potassium 3.6 mmol/L (3.5-5.0); Sodium 138 mmol/L (133-145); Total Protein 6.4 g/dL (6.4-8.9)
[2017-03-30 05:50] LABS: Alcohol < 10 mg/dL (<10); Salicylate < 2.50 mg/dL (<30)
[2017-03-30 05:53] LABS: Acetaminophen 86 mcg/mL
[2017-03-30 06:04] LABS: TSH (Thyroid Stimulating Horm) 3.98 mcIU/mL (0.34-5.60)
[2017-03-30 10:14] VITALS: BP 133/79
--- NOTE | 2017-03-30 17:06 | ED ---
Jean Sanon Alfonso, scribed for Noam Pratt MD on 03/30/17 at 1043 . Progress - Progress Note Progress Note: This patient was signed out from Dr. Walls, pending disposition, awaiting acetaminophen level. Consulted with poison control and they recommended a secondary acetaminophen level and 6 hours of observation. Second acetaminophen level of 43. After 6 hours of observation, I reexamined the patient. VITAL SIGNS: Reviewed. GENERAL: Patient is a well-developed and nourished female who is lying comfortable in the stretcher. Patient is not in any acute respiratory distress. HEAD AND FACE: No signs of trauma. No ecchymosis, hematomas or skull depressions. No sinus tenderness. EYES: PERRLA, EOMI x 2, No injected conjunctiva, no nystagmus. EARS: Hearing grossly intact. Ear canals and tympanic membranes are within normal limits. MOUTH: Oropharynx within normal limits. NECK: Supple, trachea is midline, no adenopathy, no JVD, no carotid bruit, no c- spine tenderness, neck with full ROM. CHEST: Symmetric, no tenderness at palpation LUNGS: Clear to auscultation bilaterally. No wheezing or crackles. CVS: Regular rate and rhythm, S1 and S2 present, no murmurs or gallops appreciated. ABDOMEN: Soft, non-tender. No signs of distention. No rebound no guarding, and no masses palpated. Bowel sounds are normal. EXTREMITIES: FROM in all major joints, no edema, no cyanosis or clubbing. NEURO: Alert and oriented x 3. No acute neurological deficits. Speech is normal and follows commands. SKIN: Dry and warm Since the patient is feeling better and the patients condition is stable, she will be discharged to home with Dx of accidental Percocet overdose, as recommend by poison control. Course/Dx - Diagnoses Provider Diagnoses: Percocet overdose, accidental percocet overdose The documentation as recorded by the Jean lindsay Alfonso accurately reflects the service I personally performed and the decisions made by me, Noam Pratt MD.
--- NOTE | 2017-04-01 05:27 | ED ---
Stu Sanon Thomas, scribed for Sunni Delvalle MD on 03/30/17 at 0624 . Substance Abuse/Use - HPI Summary HPI Summary: The pt is a 47 y/o F presenting to the ED c/o overdosing on 10 tablets of 5325 Percocet at 0400. She says she meant to take different meds, but took her Percocet by dumping the pills into the lid and then pouring into her mouth. She usually takes one pill in the morning and two at night. Pt additionally c/o drowsiness, nausea, and itchiness in legs. She denies SI and homicidal ideation. She has hx of polymyositis, diagnosed in October 2016. - History Of Current Complaint Chief Complaint: EDOverdose Stated Complaint: POTENTIAL OVERDOSE Hx Obtained From: Patient Onset/Duration of Drug/ETOH Abuse: Hours - at 04:00 Ingestion History: Type/Name Of Drug - Percocet, Approximate Time Of Ingestion - 04:00 Overdose Characteristics: Oral Severity Initially: Moderate Severity Currently: Moderate Aggravating Factor(s): Nothing Alleviating Factor(s): Nothing Associated Signs And Symptoms: Nausea, Other: - drowsy, itchy in legs - Allergies/Home Medications Allergies/Adverse Reactions: Allergies Allergy/AdvReac Type Severity Reaction Status Date / Time No Known Allergies Allergy Verified 07/28/16 11:08 PMH/Surg Hx/FS Hx/Imm Hx Previously Healthy: No Endocrine/Hematology History: Denies: Hx Diabetes Cardiovascular History: Reports: Hx Hypercholesterolemia, Hx Hypertension Denies: Hx Pacemaker/ICD Respiratory History: Reports: Hx Sleep Apnea - HX OF BEFORE BARIATRIC SURGERY Denies: Hx Asthma GI History: Reports: Hx Gastroesophageal Reflux Disease History: Reports: Other Problems/Disorders - stress incontinence Denies: Hx Renal Disease Musculoskeletal History: Reports: Other Musculoskeletal History - HX OF BACKACHES BEFORE BARIATRIC SURGERY Sensory History: Denies: Hx Contacts or Glasses, Hx Hearing Aid Opthamlomology History: Denies: Hx Contacts or Glasses Psychiatric History: Reports: Hx Depression - ON MEDICATION FOR Denies: Hx Panic Disorder - Cancer History Hx Chemotherapy: No Hx Radiation Therapy: No - Surgical History Surgery Procedure, Year, and Place: 1992-D&C X 2. 2008 D&C. 10/12/2013 LAPAROSCOPIC GASTRIC BYPASS, [facility] [place], lost 100 lbs. 2017 L CARDIAC CATH, [facility] [place] Hx Anesthesia Reactions: No Infectious Disease History: No Infectious Disease History: Denies: Traveled Outside the [place] in Last 30 Days - Family History Known Family History: Positive: None, Cardiac Disease, Other - pos: BREAST CA, aunt Negative: Hypertension, Diabetes - Social History Alcohol Use: Occasionally Alcohol Amount: SOCIALLY Hx Substance Use: No Substance Use Type: Reports: None, Prescribed Hx Tobacco Use: Yes Smoking Status (MU): Never Smoked Tobacco Have You Smoked in the Last Year: No Review of Systems Negative: Fever Positive: Nausea Positive: Other - itchniess in legs Positive: Other - NEGATIVE: SI and homicidal ideation All Other Systems Reviewed And Are Negative: Yes Physical Exam - Summary Physical Exam Summary: VITAL SIGNS: Reviewed. GENERAL: Patient is a well-developed and nourished female who is lying comfortable in the stretcher. Patient is not in any acute respiratory distress. HEAD AND FACE: No signs of trauma. No ecchymosis, hematomas or skull depressions. No sinus tenderness. EYES: PERRLA, EOMI x 2, No injected conjunctiva, no nystagmus. EARS: Hearing grossly intact. Ear canals and tympanic membranes are within normal limits. MOUTH: Oropharynx within normal limits. NECK: Supple, trachea is midline, no adenopathy, no JVD, no carotid bruit, no c- spine tenderness, neck with full ROM. CHEST: Symmetric, no tenderness at palpation LUNGS: Clear to auscultation bilaterally. No wheezing or crackles. CVS: Regular rate and rhythm, S1 and S2 present, no murmurs or gallops appreciated. ABDOMEN: Soft, non-tender. No signs of distention. No rebound no guarding, and no masses palpated. Bowel sounds are normal. EXTREMITIES: FROM in all major joints, no edema, no cyanosis or clubbing. NEURO: Alert and oriented x 3. No acute neurological deficits. Speech is normal and follows commands. SKIN: Dry and warm Triage Information Reviewed: Yes Vital Signs On Initial Exam: Initial Vitals Temp Pulse Resp BP Pulse Ox 97.1 F 65 16 179/86 93 03/30/17 04:35 03/30/17 04:35 03/30/17 04:35 03/30/17 04:35 03/30/17 04:35 Vital Signs Reviewed: Yes - [place] Coma Scale Coma Scale Total: 15 Diagnostics - Vital Signs Vital Signs Temp Pulse Resp BP Pulse Ox 12/10/17 05:03 77 17 168/82 95 03/30/17 05:00 67 12 172/88 83 03/30/17 04:52 9 03/30/17 04:51 178/95 03/30/17 04:35 97.1 F 65 16 179/86 93 - Laboratory Result Diagrams: 03/30/17 05:20 03/30/17 05:20 Lab Statement: Any lab studies that have been ordered have been reviewed, and results considered in the medical decision making process. - EKG 0500 Cardiac Rate: NL EKG Rhythm: Sinus Rhythm - 67 BPM EKG Interpretation: Nml axis. Nml interval. No ischemic changes. Course/Dx - Diagnoses Provider Diagnoses: Percocet overdose Discharge - Discharge Plan Condition: Stable Disposition: OTHER Discharge Disposition Comment: Sign out at shift change, attending next ED physician, Dr. Pratt Referrals: Fredi Warren MD [Primary Care Provider] - The documentation as recorded by the Stu lindsay Thomas accurately reflects the service I personally performed and the decisions made by me, Sunni Delvalle MD.
== END 2017-03-30 10:38 | disposition home or self-care (01) ==
LOC: ED 04:34
DX: T39.1X1A Poisoning by 4-Aminophenol derivatives, accidental (unintentional), initial encounter (principal); Y92.9 Unspecified place or not applicable; F32.9 Major depressive disorder, single episode, unspecified; E78.00 Pure hypercholesterolemia, unspecified; I10 Essential (primary) hypertension; K21.9 Gastro-esophageal reflux disease without esophagitis
CPT/HCPCS: 36415; 80053; 80320; 80329; 84443; 85025; 93005; 96374; 96375; 99283; G0480; J2310; J2405

== ENCOUNTER 2019-06-27 10:56 | Emergency (ER) | payer BC ==
--- OUTSIDE RECORDS SUMMARY | 2019-06-27 11:03 | XMS REPORT | Continuity of Care Document ---
:1970 External Reference #:[id number] Author Name Bandar Mosley M.D. Address 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 Problems Active Problems Provider Date Dermatomyositis Onset: 03/03/2017 Disorder of pericardium Onset: 11/29/2016 Taking medication Onset: 01/09/2018 Social History Type Date Description Comments Sex Unknown ETOH Use Occasionally consumes alcohol Tobacco Use Start: Unknown Patient has never smoked Smoking Status Reviewed: 05/31/19 Patient has never smoked Allergies, Adverse Reactions, Alerts Description No Known Drug Allergies Medications Active Medications SIG Qnty Indications Ordering Date Provider Plaquenil 1 by mouth every 30tabs Teresa, 200mg Tablets day for 1 week MD Jamir 9 then 2 by mouth daily ongoing Ketoconazole Apply q12hr for 4 30units Teresa, 2% Cream weeks or until MD Jamir 9 clear Triamcinolone Acetonide apply to affected 15units M33.92 Teresa, 0.5% areas twice a day MD Jamir 8 Ointment as needed Folic Acid take one 90tabs Teresa, 1mg Tablets capsule/tablet MD Jamir 7 daily by mouth Hydrochlorothiazide 1/2 by mouth 90tabs I10 Magali, 25mg daily.. (pt. Annabelle MD 7 Tablets states she is taking 1 tab/day per Dr. De Los Santos) Oxycodone-Acetaminophen take 1 - 2 tabs by Unknown 5-325mg mouth every 4 - 6 0 Tablets hours Escitalopram Oxalate 1 by mouth every Unknown 20mg day 0 Tablets Alprazolam one by mouth up to Unknown 0.25mg Tablets three times daily 0 Dispers as needed for anxiety(pt takes once in morning) Cyanocobalamin 1 milliliters Unknown 1000mcg/ML intramuscular 0 Solution [id number] Prilosec OTC 1 by mouth twice Unknown 20mg Tablets DR daily 0 History Medications Prednisone take 3 tabs 60tabs Jamir Moore MD 12/03/2018 - 2.5mg daily for 10 05/31/2019 Tablets days then 2 tabs daily for 10 days then 1 tab daily for 10 days then stop Immunizations Description No Information Available Vital Signs Date Vital Result Comment 05/31/2019 10:21am Intraocular Pressure Right Eye 19 mmHg Intraocular Pressure Left Eye 19 mmHg Results Description No Information Available Procedures Date Code Description Status 05/31/2019 69443 Fundus Photography W/Interpretation & Report Completed 05/31/2019 16708 Ophthalmoscopy Initial Completed 05/31/2019 47230 Refraction Completed 05/31/2019 11614 Eye Exam New Comprehensive Completed Medical Devices Description No Information Available Encounters Description No Information Available Assessments Date Code Description Provider 05/31/2019 Z79.899 Other fpc (current) drug therapy Bandar Mosley M.D. 05/31/2019 H52.4 Presbyopia Bandar Mosley M.D. Plan of Treatment 05/31/2019 - Bandar Mosley M.D.Z79.899 Other termite renewal inspector (current) drug therapyFollow up:6 mos oct mac, central vfH52.4 PresbyopiaFollow up:6 mos oct mac, central vf Functional Status Description No Information Available Mental Status Description No Information Available Referrals Description No Information Available
--- OUTSIDE RECORDS SUMMARY | 2019-06-27 11:03 | XMS REPORT | Continuity of Care Document ---
:1970 External Reference #:[id number] Author Name Fredi Warren M.D. Address [address] [place] [address] Care Team Providers Name Role Phone Fredi Warren MD - Family Medicine Care Team Information [place] [phone] Problems Active Problems Provider Date Herpes simplex Jack Suresh M.D. Onset: 12/19/2006 Essential hypertension Jamir Landaverde M.D. Onset: 06/14/2011 Neck pain Jamir Landaverde M.D. 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 Onset: 12/03/2016 Depressive disorder Fredi Warren M.D. 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 Onset: 05/26/2017 Generalized anxiety disorder Fredi Warren M.D. Onset: 08/13/2018 Skin sensation disturbance Fredi Warren M.D. Onset: 06/08/2019 Other iron deficiency anemias Fredi Warren M.D. Onset: 02/25/2019 Malaise and fatigue Fredi Warren M.D. Onset: 02/25/2019 Social History Type Date Description Comments Sex Unknown Tobacco Use Start: Unknown Nonsmoker Tobacco Use Start: Unknown Patient has never smoked Smoking Status Reviewed: 02/17/19 Patient has never smoked Allergies, Adverse Reactions, Alerts Description No Known Drug Allergies Medications Active Medications SIG Qnty Indications Ordering Date Provider Plaquenil 2 by mouth 60tabs Fredi F. 02/25/2019 200mg Tablets every day Jensen Warren Acyclovir apply as 15gm B00.9 Vaishali 11/20/2018 5% Ointment directed NIKITA Yo Xanax 1 by mouth 90tabs Fredi F. 2014 0.25mg Tablets three times a Jensen Warren day as needed Lexapro 1 by mouth 90tabs Fredi F. 20mg Tablets every day Jensen Warren Prilosec OTC 1 by mouth Unknown 20mg Tablets DR every day Hydrochlorothiazide 1 by mouth 90tabs Fredi F. 12.5mg every day Jensen Warren Tablets Oxycodone-Acetaminophen 1-2 every 4-6 60tabs M33.12 Fredi F. 5-325mg hours as needed Jensen Warren Tablets pain History Medications Losartan Potassium 1 by mouth every 90tabs Fredi F. Kelvin, 12/31/2018 - day M.DTerry 02/11/2019 25mg Tablets Immunizations CPT Code Status Date Vaccine Lot # 44219 Given 02/25/2019 Influenza Vac, Quadrivalent, Slit Virus, Im [id number] Vital Signs Date Vital Result Comment 06/08/2019 12:39pm BP Systolic 132 mmHg BP Diastolic 86 mmHg Heart Rate 56 /min Body Temperature 97.9 F Respiratory Rate 15 /min Height 62 inches 5'2" Weight 118.00 lb BMI (Body Mass Index) 21.6 kg/m2 02/25/2019 11:35am BP Systolic 132 mmHg BP Diastolic 68 mmHg Heart Rate 58 /min Body Temperature 97.9 F Respiratory Rate 16 /min Height 62 inches 5'2" Weight 127.00 lb BMI (Body Mass Index) 23.2 kg/m2 Results Test Acquired Date Facility Test Result H/L Range Note Laboratory test 02/18/2019 [facility] SEE RESULT 1 finding BELOW O&P Ova & Parasites Screen <pending> CBC Electronic Fma 02/17/2019 [facility] Melyssa(fma) WBC 4.2 x10^3/UL 4.0- 10.0 RBC 3.92 x10^6/UL Low 3.93-6.00 HGB 10.2 g/dL Low 12.0-17.0 HCT 32 % Low 35-50 MCV 80.6 fL 80.0-95.0 MCH 26.0 pg 25.6-32.2 MCHC 32.3 g/dL 32.2-36.0 RDW-CV 16.6 % High 11.6-14.4 PLT 209 x10^3/UL 163-400 MPV 10.6 fL 9.4-12.4 Masoud# 2.61 x10^3/UL 1.56-6.13 Lymph# 1.00 x10^3/UL Low 1.18-3.74 Morrill# 0.34 x10^3/UL 0.24-0.82 Eos # 0.2 x10^3/UL 0.0-0.5 Baso # 0.03 x10^3/UL 0.01-0.08 Masoud% 62.8 % 34.0-70.0 Lymph % 24.0 % 20.0-52.0 Morrill% 8.2 % 5.0-12.0 Eos% 4.3 % 0.7-7.0 Baso% 0.7 % 0.1-1.2 Laboratory test 02/17/2019 [facility] Sedimentation Rate 7mm finding (607)- - Laboratory test 02/17/2019 [facility] Reactive Protein 1.77 mg/L Normal <8.01 2 finding Comp Metabolic 02/17/2019 [facility] Sodium 140 Normal 135-14 Panel mmol/L 5 Potassium 4.4 mmol/L Normal 3.5-5.0 Chloride 103 mmol/L Normal 101-111 Co2 Carbon Dioxide 31 mmol/L Normal 22-32 Anion Gap 6 mmol/L Normal 2-11 Glucose 86 mg/dL Normal 70-100 Blood Urea Nitrogen 9 mg/dL Normal 6-24 Creatinine 0.63 mg/dL Normal 0.51-0.95 BUN/Creatinine Ratio 14.3 Normal 8-20 Calcium 9.1 mg/dL Normal 8.6-10.3 Total Protein 6.3 g/dL Low 6.4-8.9 Albumin 4.2 g/dL Normal 3.2-5.2 Globulin 2.1 g/dL Normal 2-4 Albumin/Globulin Ratio 2.0 Normal 1-3 Total Bilirubin 0.30 mg/dL Normal 0.2-1.0 Alkaline Phosphatase 48 U/L Normal 34-104 Alt 13 U/L Normal 7-52 Ast 21 U/L Normal 13-39 Egfr Non- 100.0 >60 Egfr 121.0 >60 3 1 SEE RESULT BELOW Name: LUZ CAN : [address]: Haily Garsia NP Acct: [id number] Unit: [id number] AGE: 49 Location: [facility] Re02/18/19 SEX: F Status: REG REF SPEC: [id number] DEMETRIUS: 02/18/[address] [facility] [address]: Haily Garsia RETAIL ASSISTANT REQ: [id number] RECD: 02/18/19 STATUS: COMP _ SOURCE: STOOL SPDESC: ORDERED: Stool Culture, O P: Loan/Sonya Procedure Result Reported Site Stool Culture Final 02/20/19- 1142 ML Result No enteric pathogens isolated Testing for Salmonella, Shigella, Aeromonas, Plesiomonas, Yersinia and Campylobacter are included in a Stool Culture. Vibrio spp not routinely tested for in a stool culture. If testing is desired, please request specifically when placing test order. Sensitivities not routinely performed on stool isolates, as antibiotics may prolong the carriage rate of bacteria. Please contact the microbiology lab if sensitivities are required. Stool Specimen Description Final 02/18/19- 1141 ML Stool Color Brown Stool Form Semi-formed Stool Consistency Liquid with Solid pieces Shiga Toxin 1 2 Final 02/19/19- 1213 ML Organism 1 Negative Shiga Toxin 1 2 Immunochromatographic Assay. As with all diagnostic procedures, the laboratory results obtained should be used in conjunction with other clinical information available to the physician, including confirmation by another method, as applicable. CONTINUED ON NEXT PAGE DEPARTMENT OF PATHOLOGY, [address] [place] [address] Davide Orlando M.D. Director DALIA # [id number] Patient: JUAN JOSÉLUZ SOTO Anisa [id number] (Continued) Specimen: [id number] Collected: 02/18/19 Received: 02/18/19 (Continued) Procedure Result Reported Site Shiga Toxin 1 2 Final (continued) 02/19/19- 1213 O P: Giardia/Cryptospor Screen Final 02/18/19- 1501 ML Organism 1 Neg Cryptosporidium/Giardia Giardia and cryptosporidium antigen testing performed by enzyme immunoassay. If patient is immunocompromised or has traveled to or is from a developing country, a full ova and parasite exam with microscopic (OPMIC) is recommended. All samples will be held 21 days in case full ova and parasite testing is requested. Contact the Microbiology Department at [phone]. TEST LIMITATIONS: As with all diagnostic procedures, the results obtained should be used in conjunction with other clinical information available to the physician, including confirmation by another method. Negative results can occur in samples containing antigen below lower limits of detection of the assay. One negative specimen does not rule out the possibility of a parasitic infection. To improve detection it is recommended that three specimens be collected on separate days over a period of not more than seven days. The use of colonic washes, aspirates or other diluted sample types has not been established and could affect the performance of the assay. Stool samples contaminated with an oily or particulate base (eg. Barium, mineral oil etc.) could interfere with the test and are not recommended. * ML - Main Lab . END OF REPORT DEPARTMENT OF PATHOLOGY, [address] [place] [address] Davide Orlando M[address] Director [facility] # [id number] 2 2 [facility] [id number] 3 Because ethnic data is not always readily available, this report includes an eGFR for both -Americans and non- Americans. The National Kidney Disease Education Program (NKDEP) does not endorse the use of the MDRD equation for patients that are not between the ages of 18 and 70, are , have extremes of body size, muscle mass, or nutritional status, or are non- or non-. According to the National Kidney Foundation, irrespective of diagnosis, the stage of the disease is based on the level of kidney function: Stage Description GFR(mL/min/1.73 m(2)) 1 Kidney damage with normal or decreased GFR 90 2 Kidney damage with mild decrease in GFR 60-89 3 Moderate decrease in GFR 30-59 4 Severe decrease in GFR 15-29 5 Kidney failure <15 (or dialysis) Procedures Date Code Description Status 03/21/2017 [id number] Mammogram Completed 04/03/2016 [id number] Mammogram Completed 02/26/2013 [id number] Colonoscopy Completed Medical Devices Description No Information Available Encounters Type Date Location Provider Dx Diagnosis Office Visit 02/25/2019 Main Office Fredi Warren, Z23 Encounter for 11:20a M.D. 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 06/08/2019 F32.89 Other specified depressive episodes Fredi Warren M.D. 06/08/2019 R20.2 Paresthesia of skin Fredi Warren M.D. 02/25/2019 Z23 Encounter for immunization Fredi Warren M.D. 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 02/25/2019 D50.8 Other iron deficiency anemias Fredi Warren M.D. 02/25/2019 R53.1 Weakness Fredi Warren M.D. 02/25/2019 F32.89 Other specified depressive episodes Fredi Warren M.D. 02/17/2019 R19.7 Diarrhea, unspecified Haily Garsia, Afnp-C 12/31/2018 I10 Essential (primary) hypertension Fredi Warren M.D. 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 12/31/2018 F41.1 Generalized anxiety disorder Fredi Warren M.D. Plan of Treatment Future Appointment(s):12/02/2019 8:40 am - Fredi Warren M.D. at Main Obhggq8206/08/2019 - Fredi Warren M.D.M33.12 Other dermatomyositis with hywovdafG01.89 Other specified depressive gjlhbikcT08.2 Paresthesia of skinAllComments:to see Dr Moore in near future, to have ENG , follow up with Dr Mckinley, oxycodone refilled, continue lexapro , now off methotrexate, discussed Shingrix , to see Dr Farah in near future and have mammogram colonoscopy in 2022 Functional Status Description No Information Available Mental Status Description No Information Available Referrals Description No Information Available
--- OUTSIDE RECORDS SUMMARY | 2019-06-27 11:03 | XMS REPORT | Continuity of Care Document ---
:1970 External Reference #:[id number] Author Name Mp Mckinley M.D. (transmitted by agent of provider Beatrice [place]) Address [address] [place] [address], [address] [place] [id number] Care Team Providers Name Role Phone Fredi Warren MD - Family Medicine Care Team Information Hydrometeorologist Jamir Moore MD - Rheumatology Care Team Information Hydrometeorologist [phone] Problems Active Problems Provider Date Disorder of pericardium Annabelle De Los Santos M.D. Onset: 11/29/2016 Myositis Mp Mckinley M.D. Onset: 12/05/2016 Neck pain Mp Mckinley M.D. Onset: 05/11/2019 Skin sensation disturbance Mp Mckinley M.D. Onset: 05/11/2019 Taking medication Mp Mckinley M.D. Onset: 01/09/2018 Dermatomyositis Mp Mckinley M.D. Onset: 03/03/2017 Social History Type Date Description Comments Sex Unknown Tobacco Use Start: Unknown Never Smoked Cigarettes Smoking Status Reviewed: 05/11/19 Never Smoked Cigarettes ETOH Use Drinks Alcoholic Beverages Occasionally Tobacco Use Start: Unknown Patient has never smoked Recreational Drug Use Denies Drug Use Exercise Type/Frequency Cardio 4 x week Exercise Type/Frequency Weight lifting 4 x week Exercise Type/Frequency Does not exercise Allergies, Adverse Reactions, Alerts Description No Known Drug Allergies Medications Active Medications SIG Qnty Indications Ordering Date Provider Hydroxychloroquine Take 2 tablets 180tabs Jamir Sulfate once daily ongoing Jensen Moore 9 200mg Tablets Ketoconazole Apply q12hr for 4 30gm Jamir 2% Cream weeks or until Jensen Moore 9 clear Slow Release Iron take one 60tabs Jamir 50mg Tablets capsule/tablet Jensen Moore 9 ER daily by mouth Triamcinolone Acetonide apply to affected 15gm M33.92 Jamir 0.5% areas twice a day Jensen Moore 8 Ointment as needed Folic Acid take one 90tabs Jamir 1mg Tablets capsule/tablet Jensen Moore 7 daily by mouth Hydrochlorothiazide 1/2 by mouth 90tabs I10 Annabelle De Los Santos, 25mg daily.. (pt. M.D. 7 Tablets states she is taking 1 [...] 1 milliliters Unknown 1000mcg/ML intramuscular 0 Solution [id number] Prilosec OTC 1 by mouth twice Unknown 20mg Tablets DR daily 0 Black 1 tab po qd Unknown Elderberry(Storm-Flower) 0 575mg Capsules History Medications Plaquenil 1 by mouth every 30tabs Jamir Moore, 12/30/2018 - 200mg Tablets day for 1 week M.D. 02/25/2019 then 2 by mouth daily ongoing Prednisone take 3 tabs daily 60tabs Jamir Moore, 12/03/2018 - 2.5mg for 10 days then 2 M.D. 05/10/2019 Tablets tabs daily for 10 days then 1 tab daily for 10 days then stop Immunizations CPT Code Status Date Vaccine Reaction Lot # [id number] Given 05/21/2017 Pneumococcal Conjugate no immediate reaction [id number] Vaccine 13 Valent For noted Intramuscular Use Vital Signs Date Vital Result Comment 05/11/2019 9:04am Height 62 inches 5'2" Weight 118.00 lb Heart Rate 70 /min BP Systolic Sitting 124 mmHg BP Diastolic Sitting 80 mmHg Respiratory Rate 15 /min BMI (Body Mass Index) 21.6 kg/m2 12/03/2018 2:34pm Height 62 inches 5'2" Weight 130.00 lb Heart Rate 52 /min BP Systolic Sitting 134 mmHg BP Diastolic Sitting 80 mmHg Pain Level 4 O2 % BldC Oximetry 99 % BMI (Body Mass Index) 23.8 kg/m2 Results Test Acquired Date Facility Test Result H/L Range Note CBC Auto 04/26/2019 [facility] White Blood 2.8 10^3/uL Low 3.5 -10.[address] [place] [address] [phone] Red Blood Count 4.03 10^6/uL Normal 3.70-4.87 Hemoglobin 10.8 g/dL Low 12.0-16.0 Hematocrit 32 % Low 35-47 Mean Corpuscular Volume 80 fL Normal 80-97 Mean Corpuscular Hemoglobin 27 pg Normal 27-31 Mean Corpuscular HGB Conc 34 g/dL Normal 31-36 Red Cell Distribution Width 15 % Normal 10-15 Platelet Count 186 10^3/uL Normal 150-450 Mean Platelet Volume 8.4 fL Normal 7.4-10.4 Abs Neutrophils 1.5 10^3/uL Normal 1.5-7.7 Abs Lymphocytes 0.9 10^3/uL Low 1.0-4.8 Abs Monocytes 0.2 10^3/uL Normal 0-0.8 Abs Eosinophils 0.1 10^3/uL Normal 0-0.6 Abs Basophils 0.1 10^3/uL Normal 0-0.2 Abs Nucleated RBC 0.0 10^3/uL Granulocyte % 53.5 % Lymphocyte % 31.7 % Monocyte % 8.7 % Eosinophil % 4.1 % Basophil % 2.0 % Nucleated Red Blood Cells % 0.1 Laboratory test 03/30/2019 [facility] Erythrocyte Sed 4 mm/Hr Normal 0-[address] [place] [address] [phone] C Reactive Protein < 1.00 mg/L Normal <8.01 Creatine Kinase(CK) 170 U/L Normal 10-223 CMP Panel 03/30/2019 [facility] Sodium 139 mmol/L Normal 135- [address] [place] [address] [phone] Potassium 4.5 mmol/L Normal 3.5-5.0 Chloride 103 mmol/L Normal 101-111 Co2 Carbon Dioxide 32 mmol/L Normal 22-32 Anion Gap 4 mmol/L Normal 2-11 Glucose 67 mg/dL Low 70-100 Blood Urea Nitrogen 6 mg/dL Normal 6-24 Creatinine 0.57 mg/dL Normal 0.51-0.95 BUN/Creatinine Ratio 10.5 Normal 8-20 Calcium 9.3 mg/dL Normal 8.6-10.3 Total Protein 6.0 g/dL Low 6.4-8.9 Albumin 4.3 g/dL Normal 3.2-5.2 Globulin 1.7 g/dL Low 2-4 Albumin/Globulin Ratio 2.5 Normal 1-3 Total Bilirubin 0.40 mg/dL Normal 0.2-1.0 Alkaline Phosphatase 49 U/L Normal 34-104 Alt 13 U/L Normal 7-52 Ast 20 U/L Normal 13-39 Egfr Non- 112.3 >60 Egfr 135.8 >60 1 CBC W/Auto 03/30/2019 [facility] White Blood 2.2 10^3/uL Low 3.5-10.[address] [place] [address] [phone] Red Blood Count 4.01 10^6/uL Normal 3.70-4.87 Hemoglobin 10.6 g/dL Low 12.0-16.0 Hematocrit 32 % Low 35-47 Mean Corpuscular Volume 79 fL Low 80-97 Mean Corpuscular Hemoglobin 26 pg Low 27-31 Mean Corpuscular HGB Conc 33 g/dL Normal 31-36 Red Cell Distribution Width 16 % High 10-15 Platelet Count 189 10^3/uL Normal 150-450 Mean Platelet Volume 8.7 fL Normal 7.4-10.4 Abs Neutrophils 1.1 10^3/uL Low 1.5-7.7 Abs Lymphocytes 0.7 10^3/uL Low 1.0-4.8 Abs Monocytes 0.2 10^3/uL Normal 0-0.8 Abs Eosinophils 0.1 10^3/uL Normal 0-0.6 Abs Basophils 0.1 10^3/uL Normal 0-0.2 Abs Nucleated RBC 0.0 10^3/uL Granulocyte % 48.9 % Lymphocyte % 33.9 % Monocyte % 9.3 % Eosinophil % 5.4 % Basophil % 2.5 % Nucleated Red Blood Cells % 0.0 Laboratory test 12/16/2018 [facility] Erythrocyte Sed 5 mm/Hr Normal 0-[address] [place] [address] [phone] C Reactive Protein < 1.00 mg/L Normal <8.01 Creatine Kinase(CK) 107 U/L Normal 10-223 CBC W/Auto 12/16/2018 [facility] White Blood 4.9 10^3/uL Normal 3.5-10.[address] [place] [address] [phone] Red Blood Count 4.22 10^6/uL Normal 3.70-4.87 Hemoglobin 10.3 g/dL Low 12.0-16.0 Hematocrit 33 % Low 35-47 Mean Corpuscular Volume 77 fL Low 80-97 Mean Corpuscular Hemoglobin 24 pg Low 27-31 Mean Corpuscular HGB Conc 32 g/dL Normal 31-36 Red Cell Distribution Width 19 % High 10-15 Platelet Count 254 10^3/uL Normal 150-450 Mean Platelet Volume 8.1 fL Normal 7.4-10.4 Abs Neutrophils 3.4 10^3/uL Normal 1.5-7.7 Abs Lymphocytes 1.0 10^3/uL Normal 1.0-4.8 Abs Monocytes 0.4 10^3/uL Normal 0-0.8 Abs Eosinophils 0.1 10^3/uL Normal 0-0.6 Abs Basophils 0.0 10^3/uL Normal 0-0.2 Abs Nucleated RBC 0.0 10^3/uL Granulocyte % 70.1 % Lymphocyte % 19.8 % Monocyte % 7.3 % Eosinophil % 1.8 % Basophil % 1.0 % Nucleated Red Blood Cells % 0.0 CMP Panel 12/16/2018 [facility] Sodium 137 mmol/L Normal 135- [address] [place] [address] [phone] Potassium 4.5 mmol/L Normal 3.5-5.0 Chloride 102 mmol/L Normal 101-111 Co2 Carbon Dioxide 31 mmol/L Normal 22-32 Anion Gap 4 mmol/L Normal 2-11 Glucose 77 mg/dL Normal 70-100 Blood Urea Nitrogen 15 mg/dL Normal 6-24 Creatinine 0.62 mg/dL Normal 0.51-0.95 BUN/Creatinine Ratio 24.2 High 8-20 Calcium 9.3 mg/dL Normal 8.6-10.3 Total Protein 6.1 g/dL Low 6.4-8.9 Albumin 4.2 g/dL Normal 3.2-5.2 Globulin 1.9 g/dL Low 2-4 Albumin/Globulin Ratio 2.2 Normal 1-3 Total Bilirubin 0.40 mg/dL Normal 0.2-1.0 Alkaline Phosphatase 33 U/L Low 34-104 Alt 14 U/L Normal 7-52 Ast 16 U/L Normal 13-39 Egfr Non- 102.3 >60 Egfr 123.8 >60 2 1 Because ethnic data is not always readily [...] 15-29 5 Kidney failure <15 (or dialysis) 2 Because ethnic data is not always readily [...] 5 Kidney failure <15 (or dialysis) Procedures Description No Information Available Medical Devices Description No Information Available Encounters Type Date Location Provider Dx Diagnosis Office Visit 05/11/2019 Neurohospitalist Zoraida Camejo3.92 Dermatopolymyosit 9:00a Clinic Jensen is, unspecified with myopathy R20.2 Paresthesia of skin M54.2 Cervicalgia Office 12/03/2018 Rheumatology Jamir Conway3.Marielle Dermatopolymyositis, Visit 2:[facility] with Jensen myopathy Z79.899 Other vermin exterminator (current) drug therapy 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 myopathy 05/11/2019 R20.2 Paresthesia of skin Mp Mckinley M.D. 05/11/2019 M54.2 Cervicalgia Mp Mckinley M.D. 12/03/2018 M33.Marielle Dermatopolymyositis, unspecified with Jamir Moore M.D. myopathy 12/03/2018 Z79.899 Other vermin exterminator (current) drug therapy Jamir Moore M.D. 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 steroids 12/03/2018 R21 Rash and other nonspecific skin eruption Jamir Moore M.D. 12/03/2018 D64.9 Anemia, unspecified Jamir Moore M.D. Plan of Treatment Future Appointment(s):09/23/2019 2:30 pm - Mp Mckinley M.D. at [facility]06/17/2019 4:00 pm - Ambika Farah MD at [facility]06/10/2019 3:00 pm - Jamir Moore M.D. at [facility]05/11/2019 - Mp Mckinley M.D.M33.92 Dermatopolymyositis, unspecified with myopathyFollow up:Follow up in 4 monthsRecommendations:Call me 1 week after EMG/NCS to discuss xdkvhurG09.2 Paresthesia of skinRecommendations: Wear braces as much as possible, especially at vwvsjE30.2 CervicalgiaNew Therapy :Physical Therapy Functional Status Description No Information Available Mental Status Description No Information Available Referrals Refer to Reason for Referral Status Appt Date Bandar Mosley MD Please monitor for Plaquenil toxicity Sent [address] [place] [id number] [phone]
[2019-06-27] MEDS ORDERED: NS 0.9% 1000 ML** 1,000 ML IV ONE ×2 (11:13→12:25)
[2019-06-27] MEDS ORDERED: Azithromycin 500 mg/250 ml NS 500 MG/250 ML BAG IVPB ONE (11:26)
[2019-06-27] MEDS ORDERED: cefTRIAXone(*) 1 GM in NS 0.9% 50 ML* 50 ML IVPB ONE ×2 (11:26→13:00)
--- NOTE | 2019-06-27 11:27 | ED ---
HPI Chest Pain - HPI Summary HPI Summary: This pt is a 49 Y/O F presenting to [facility] with a CC of CP that is described as pressure and is located around her bilateral lung shoemaker. She states that she also has a fever, chills, SOB, non-productive cough, myalgia, and arthralgia. She states that her symptoms began at 0300 this date and were a sudden onset. She also states that she has sinus pressure in her face. She reports that the pain woke her up at night and did not radiate. She states that pushing on her lungs help to give her the ability of a deeper breath. She rates her pain a 7/ 10. 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 She states no aggravating factors. - History of Current Complaint Chief Complaint: EDChestPainROMI Time Seen by Provider: 06/27/19 11:03 Hx Obtained From: Patient Onset/Duration: Started Hours Ago - 8 hours 30 minutes Timing: Constant Initial Severity: Severe Current Severity: Severe Pain Intensity: 7 Pain Scale Used: 0-10 Numeric Chest Pain Location: Discrete at: - lung shoemaker Chest Pain Radiates: No Character: Pressure/Squeezing Aggravating Factor(s): Nothing Alleviating Factor(s): Other: - pressure on lungs Associated Signs and Symptoms: Positive: Chest Pain, Shortness of Breath, Fever , Chills, Nonproductive Cough, Other: - myalgia, arthralgia - Additional Pertinent History Primary Care Physician: [id number] - Allergy/Home Medications Allergies/Adverse Reactions: Allergies Allergy/AdvReac Type Severity Reaction Status Date / Time No Known Allergies Allergy Verified 06/27/19 11:03 Home Medications: Home Medications Escitalopram Oxalate [Lexapro 20 mg] 20 mg PO QAM 04/08/14 [History Confirmed ] oxyCODONE/Acetamin 5/325 MG* [Percocet 5/325 TAB*] 1 - 2 tab PO Q4H PRN #60 tab MDD 12 tabs 11/21/16 [Rx Confirmed 11/22/16] Naproxen TAB* [Naprosyn 375 mg TAB*] 375 mg PO BID PRN #30 tab 11/26/16 [Rx Confirmed 11/22/16] Triamcinolone 0.1% OINT(NF) [Kenalog 0.1% OINT(NF)] 1 applic TOPICAL TID PRN #1 tube 11/26/16 [Rx] predniSONE 20 mg TAB [Deltasone 20 MG TAB*] 60 mg PO DAILY #90 tab 11/26/16 [Rx] ALPRAZolam TAB* [Xanax TAB*] 1 tab PO DAILY PRN 11/29/16 [History Confirmed 03/07] Cyanocobalamin (Vitamin B-12) [Vitamin B12] 3,000 mcg SUBCUT MONTHLY 11/29/16 [ History Confirmed 11/29/16] Lisinopril [Zestril 10 MG-] 10 mg PO DAILY 11/29/16 [History Confirmed 11/29/16] Omeprazole CAP (NF) [Prilosec CAP* 20 MG] 20 mg PO DAILY 11/29/16 [History Confirmed 11/29/16] Simvastatin TAB(NF) [Zocor 10 MG (NF)] 10 mg PO DAILY 11/29/16 [History Confirmed 11/29/16] Sucralfate TAB* [Carafate*] 2 teasp PO QID 11/29/16 [History Confirmed 11/29/16] Cefpodoxime 200 mg (NF) [Vantin 200 MG TAB (NF)] 200 mg PO Q12H 7 Days #14 tab 06/27/19 [Rx] Doxycycline Hyclate 100 mg PO BID 7 Days #14 tablet 06/27/19 [Rx] PMH/Surg Hx/FS Hx/Imm Hx Previously Healthy: Yes Endocrine/Hematology History: Reports: Autoimmune Disease - poly dermatomyositis Denies: Hx Diabetes Cardiovascular History: Reports: Hx Hypercholesterolemia, Hx Hypertension Denies: Hx Pacemaker/ICD Respiratory History: Reports: Hx Sleep Apnea - HX OF BEFORE BARIATRIC SURGERY Denies: Hx Asthma GI History: Reports: Hx Gastroesophageal Reflux Disease History: Reports: Other Problems/Disorders - stress incontinence Denies: Hx Dialysis, Hx Renal Disease Musculoskeletal History: Reports: Other Musculoskeletal History - HX OF BACKACHES BEFORE BARIATRIC SURGERY Sensory History: Denies: Hx Contacts or Glasses, Hx Hearing Aid Opthamlomology History: Denies: Hx Contacts or Glasses Psychiatric History: Reports: Hx Depression - ON MEDICATION FOR Denies: Hx Panic Disorder - Cancer History Hx Chemotherapy: No Hx Radiation Therapy: No - Surgical History Surgical History: Yes Surgery Procedure, Year, and Place: 2016 CARDIAC CATH PLUG FROM SURGERY. 2 D& C. 2014 [facility]-Y GASTIC BY PASS SURGERY CLIPS METAL Hx Anesthesia Reactions: No - Immunization History Immunizations Up to Date: Yes Infectious Disease History: No Infectious Disease History: Denies: Traveled Outside the [place] in Last 30 Days - Family History Known Family History: Positive: None, Cardiac Disease, Other - pos: BREAST CA, aunt Negative: Hypertension, Diabetes - Social History Occupation: Employed Full-time Lives: With Family Alcohol Use: Occasionally Alcohol Amount: SOCIALLY Hx Substance Use: No Substance Use Type: Reports: None Hx Tobacco Use: Yes Smoking Status (MU): Never Smoked Tobacco Have You Smoked in the Last Year: No Review of Systems Positive: Fever, Chills Positive: Chest Pain Positive: Shortness Of Breath, Cough - non-productive Positive: Arthralgia, Myalgia All Other Systems Reviewed And Are Negative: Yes Physical Exam - Summary Physical Exam Summary: VITAL SIGNS: Reviewed. GENERAL: Patient is a well-developed and nourished female who is lying comfortable in the stretcher. Patient is not in any acute respiratory distress. HEAD AND FACE: No signs of trauma. No ecchymosis, hematomas or skull depressions. No sinus tenderness. EYES: PERRLA, EOMI x 2, No injected conjunctiva, no nystagmus. EARS: Hearing grossly intact. Ear canals and tympanic membranes are within normal limits. MOUTH: Oropharynx within normal limits. NECK: Supple, trachea is midline, no adenopathy, no JVD, no carotid bruit, no c- spine tenderness, neck with full ROM. CHEST: Symmetric, no tenderness at palpation. LUNGS: Clear to auscultation bilaterally. No wheezing or crackles. CVS: Regular rate and rhythm, S1 and S2 present, no murmurs or gallops appreciated. ABDOMEN: Soft, non-tender. No signs of distention. No rebound, no guarding, and no masses palpated. Bowel sounds are normal. EXTREMITIES: FROM in all major joints, no edema, no cyanosis or clubbing. NEURO: Alert and oriented x 3. No acute neurological deficits. Speech is normal and follows commands. SKIN: Dry and warm. Triage Information Reviewed: Yes Vital Signs On Initial Exam: Initial Vitals Temp Pulse Resp BP Pulse Ox 98.6 F 79 18 120/60 96 06/27/19 11:00 06/27/19 11:00 06/27/19 11:00 06/27/19 11:00 06/27/19 11:00 Vital Signs Reviewed: Yes Procedures - Sedation Patient Received Moderate/Deep Sedation with Procedure: No Diagnostics - Vital Signs Vital Signs Temp Pulse Resp BP Pulse Ox 06/27/19 11:09 84 17 137/67 98 06/27/19 11:00 98.6 F 79 18 120/60 96 - Laboratory Result Diagrams: 06/27/19 11:18 06/27/19 11:18 Lab Statement: Any lab studies that have been ordered have been reviewed, and results considered in the medical decision making process. - Radiology CXR Radiology Interpretation Completed By: Radiologist Summary of Radiographic Findings: 1. Left perihilar airspace opacification could be lead generation representative of pneumonia the correct clinical context. Recommend imaging to radiologic resolution. ED Physician has reviewed this report. - EKG 0959 Cardiac Rate: NL - 81 BPM EKG Rhythm: Sinus Rhythm ST Segment: Normal Ectopy: None Summary of EKG Findings: An EKG at 0959 reveals normal sinus rhythm at 81 BPMs with nml axis, nml intervals. No STEMI. No acute changes. Dr. Pina has reviewed and interpreted this EKG at 0959 06/27/2019. Chest Pain Course/Dx - Course Course Of Treatment: This pt is a 49 Y/O F presenting to [facility] with a CC of CP that is described as pressure and is located around her bilateral lung shoemaker. She states that she also has a fever, chills, SOB, non-productive cough, myalgia , and arthralgia. She states that her symptoms began at 0300 this date and were a sudden onset. She also states that she has sinus pressure in her face. She has a PMHx of poly dermatomyositis. Her PE found no acute abnormalities. An EKG at 0959 reveals normal sinus rhythm at 81 BPMs with nml axis, nml intervals. No STEMI. No acute changes. CXR: 1. Left perihilar airspace opacification could be lead generation representative of pneumonia the correct clinical context. Recommend imaging to radiologic resolution. She was not suitable for admission and will be discharged home with a Dx of PNA and be given ABx Cefpodoxime and Doxycycline. - Diagnoses Provider Diagnoses: PNA (pneumonia) Discharge ED - Sign-Out/Discharge Documenting (check all that apply): Patient Departure - discharge - Discharge Plan Condition: Good Disposition: HOME Prescriptions: Cefpodoxime 200 mg (NF) [Vantin 200 MG TAB (NF)] 200 mg PO Q12H 7 Days #14 tab Doxycycline Hyclate 100 mg PO BID 7 Days #14 tablet Patient Education Materials: Bacterial Pneumonia (ED) Referrals: Fredi Warren MD [Primary Care Provider] - 2 Days Additional Instructions: PLEASE FOLLOW UP WITH YOUR PRIMARY CARE PROVIDER IN THE NEXT 1-3 DAYS AND RETURN TO THE EMERGENCY DEPARTMENT FOR ANY NEW OR WORSENING SYMPTOMS. Take the medications that have been prescribed to you as directed and for the indicated time frame. - Billing Disposition and Condition Condition: GOOD Disposition: Home - Attestation Statements Document Initiated by Corazon: Yes Documenting Scribe: Harley Peters Provider For Whom Corazon is Documenting (Include Credential): Mp Pina MD Scribe Attestation: Harley Sanon scribed for Mp Pina MD on 06/27/19 at 1545. Scribe Documentation Reviewed: Yes Provider Attestation: The documentation as recorded by the Harley lindsay accurately reflects the service I personally performed and the decisions made by , Mp Pina MD Status of Scribe Document: Viewed
[2019-06-27 11:28] LABS: Hematocrit 34 % (35-47); Hemoglobin 11.7 g/dL (12.0-16.0); Mean Corpuscular HGB Conc 34 g/dL (31-36); Mean Corpuscular Hemoglobin 28 pg (27-31); Mean Corpuscular Volume 81 fL (80-97); Mean Platelet Volume 8.1 fL (7.4-10.4); Platelet Count 183 10^3/uL (150-450); Red Blood Count 4.25 10^6 /uL (3.70-4.87); Red Cell Distribution Width 15 % (10-15); White Blood Count 5.5 10^3/uL (3.5-10.8)
[2019-06-27 11:35] LABS: INR 1.07 (0.82-1.09)
[2019-06-27 11:46] LABS: Albumin 4.2 g/dL (3.2-5.2); Albumin/Globulin Ratio 1.8 (1-3); BUN/Creatinine Ratio 17.7 (8-20); EGFR African American 123.3 (>60); EGFR Non-African American 101.9 (>60); Globulin 2.3 g/dL (2-4); Potassium 3.9 mmol/L (3.5-5.0); Total Bilirubin 0.6 mg/dL (0.2-1.0); Total Protein 6.5 g/dL (6.4-8.9)
[2019-06-27 11:47] LABS: Troponin I 0.01 ng/mL (<0.03)
[2019-06-27 11:57] LABS: ABS Basophils 0.1 10^3/ul (0-0.2); ABS Lymphocytes 0.1 10^3/ul (1.0-4.8); ABS Monocytes 0.2 10^3/ul (0-0.8); ABS Neutrophils 5.1 10^3/ul (1.5-7.7); Eosinophil % 0.1 %; Lymphocyte % 2.1 %
[2019-06-27 12:11] LABS: Influenza A Molecular Negative (Negative); Influenza B Molecular Negative (Negative)
[2019-06-27] MEDS ORDERED: Ketorolac INJ* 30 MG/ML 1 ML VIAL IV PUSH ONE (12:16)
[2019-06-27] MEDS ORDERED: Morphine 4 MG/ML VIAL (1 ml) 4 MG/ML VIAL IV ONE (12:19)
--- NOTE | 2019-06-27 12:38 | PN ---
Progress Note - Progress Note Date of Service: 06/27/19 Note: Called by Dr. Pina for discussion of admission criteria for community- acquired pneumonia. Patient has very low CURB-65 and PSI score, which generally indicates outpatient treatment. She has no oxygen requirements and does not meet sepsis criteria. We agree he will discuss outpatient treatment with patient and call back if there is indication for inpatient management.
[2019-06-27] MEDS ORDERED: cefTRIAXone(*) 1 GM ADVAN/BAG ONE (13:02)
[2019-06-27 14:15] VITALS: BP 120/67
== END 2019-06-27 14:51 | disposition home or self-care (01) ==
LOC: ED 10:56
DX: J18.9 Pneumonia, unspecified organism (principal); R07.9 Chest pain, unspecified; R06.02 Shortness of breath; R50.9 Fever, unspecified; E78.00 Pure hypercholesterolemia, unspecified; I10 Essential (primary) hypertension; K21.9 Gastro-esophageal reflux disease without esophagitis; Z86.2 Personal history of diseases of the blood and blood-forming organs and certain disorders involving the immune mechanism; F32.9 Major depressive disorder, single episode, unspecified
CPT/HCPCS: 36415; 71045; 80053; 84484; 85025; 85379; 85610; 85652; 86140; 93005; 96361; 96374; 96375; 99283; J0456; J0696; J1885; J2270

== ENCOUNTER 2019-06-28 02:25 | Inpatient (IN) | payer BC ==
[2019-06-28] MEDS ORDERED: NS 0.9% 1000 ML** 1,000 ML IV.FLUID IV ONE (02:41)
--- NOTE | 2019-06-28 02:42 | ED ---
Complex/Multi-Sys Presentation - HPI Summary HPI Summary: Patient is a 49 y/o F presenting to [facility] with complaints of left-sided chest pain, SOB, cough, fever, arthalgia, nausea, and feeling near-syncopal. She states that she awoke with left-sided chest pain, SOB, cough, arthalgia, fever, nausea at around 0300 on 06/27/19. Patient was evaluated at [facility]; CXR showed PNA , patient was discharged to home with antibiotics. Since discharge, she states that her pain has been unchanged in severity. Pain is located at left lateral and left anterior chest area. Patient reports a fever of 102 F. She notes that she has been feeling near-syncopal as well. She states that she has been taking ibuprofen and Tylenol but has been trying to limit this due to bariatric surgery history. She reports Hx of poly dermatoyositis which has led to endocarditis and pericarditis previously. Home medications and allergies are reviewed. Home Medications Medication Instructions Recorded Confirmed Type Escitalopram Oxalate [Lexapro 20 20 mg PO QAM 04/08/14 11/22/16 History mg] oxyCODONE/Acetamin 5/325 MG* 1 - 2 tab PO Q4H PRN #60 tab MDD 11/21/16 11/22/16 Rx [Percocet 5/325 TAB*] 12 tabs Naproxen TAB* [Naprosyn 375 mg 375 mg PO BID PRN #30 tab 11/26/16 11/22/16 Rx TAB*] Triamcinolone 0.1% OINT(NF) 1 applic TOPICAL TID PRN #1 tube 11/26/16 Rx [Kenalog 0.1% OINT(NF)] predniSONE 20 mg TAB [Deltasone 20 60 mg PO DAILY #90 tab 11/26/16 Rx MG TAB*] ALPRAZolam TAB* [Xanax TAB*] 1 tab PO DAILY PRN 11/29/16 11/29/16 History Cyanocobalamin (Vitamin B-12) 3,000 mcg SUBCUT MONTHLY 11/29/16 11/29/16 History [Vitamin B12] Lisinopril [Zestril 10 MG-] 10 mg PO DAILY 11/29/16 11/29/16 History Omeprazole CAP (NF) [Prilosec CAP* 20 mg PO DAILY 11/29/16 11/29/16 History 20 MG] Simvastatin TAB(NF) [Zocor 10 MG 10 mg PO DAILY 11/29/16 11/29/16 History (NF)] Sucralfate TAB* [Carafate*] 2 teasp PO QID 11/29/16 11/29/16 History Cefpodoxime 200 mg (NF) [Vantin 200 mg PO Q12H 7 Days #14 tab 06/27/19 Rx 200 MG TAB (NF)] Doxycycline Hyclate 100 mg PO BID 7 Days #14 tablet 06/27/19 Rx - History Of Current Complaint Chief Complaint: EDShortnessOfBreath Time Seen by Provider: 06/28/19 02:34 Hx Obtained From: Patient Onset/Duration: Lasting Days, Still Present Timing: Days Location: Pain At: - left lateral and left anterior chest Associated Signs And Symptoms: Positive: Syncope - NEAR, SOB, Cough, Chest Pain , Nausea, Fever, Other - arthralgia - Allergies/Home Medications Allergies/Adverse Reactions: Allergies Allergy/AdvReac Type Severity Reaction Status Date / Time No Known Allergies Allergy Verified 06/28/19 02:49 Home Medications: Home Medications Escitalopram Oxalate [Lexapro 20 mg] 20 mg PO QAM 04/08/14 [History Confirmed ] oxyCODONE/Acetamin 5/325 MG* [Percocet 5/325 TAB*] 1 - 2 tab PO Q4H PRN #60 tab MDD 12 tabs 11/21/16 [Rx Confirmed 06/28/19] Triamcinolone 0.1% OINT(NF) [Kenalog 0.1% OINT(NF)] 1 applic TOPICAL TID PRN #1 tube 11/26/16 [Rx Confirmed 06/28/19] ALPRAZolam TAB* [Xanax TAB*] 1 tab PO DAILY PRN 11/29/16 [History Confirmed 01/08] Cyanocobalamin (Vitamin B-12) [B-12] 3,000 mcg SUBCUT MONTHLY 11/29/16 [History Confirmed 06/28/19] Omeprazole CAP (NF) [Prilosec CAP* 20 MG] 20 mg PO DAILY 11/29/16 [History Confirmed 06/28/19] Simvastatin TAB(NF) [Zocor 10 MG (NF)] 10 mg PO DAILY 11/29/16 [History Confirmed 06/28/19] Cefpodoxime 200 mg (NF) [Vantin 200 MG TAB (NF)] 200 mg PO Q12H 7 Days #14 tab 06/27/19 [Rx Confirmed 06/28/19] Hydroxychloroquine TAB* [Plaquenil TAB*] 400 mg PO BEDTIME 06/28/19 [History Confirmed 06/28/19] Azithromycin TAB* [Zithromax TAB (Z-MARLIN) 250 mg #6 tabs] 250 mg PO DAILY #3 tab 06/29/19 [Rx] PMH/Surg Hx/FS Hx/Imm Hx Endocrine/Hematology History: Denies: Hx Diabetes Cardiovascular History: Reports: Hx Hypercholesterolemia, Hx Hypertension Denies: Hx Pacemaker/ICD Respiratory History: Reports: Hx Sleep Apnea - HX OF BEFORE BARIATRIC SURGERY Denies: Hx Asthma GI History: Reports: Hx Gastroesophageal Reflux Disease History: Reports: Other Problems/Disorders - stress incontinence Denies: Hx Dialysis, Hx Renal Disease Musculoskeletal History: Reports: Other Musculoskeletal History - HX OF BACKACHES BEFORE BARIATRIC SURGERY Sensory History: Denies: Hx Contacts or Glasses, Hx Hearing Aid Opthamlomology History: Denies: Hx Contacts or Glasses Psychiatric History: Reports: Hx Depression - ON MEDICATION FOR Denies: Hx Panic Disorder - Cancer History Hx Chemotherapy: No Hx Radiation Therapy: No - Surgical History Surgery Procedure, Year, and Place: 2016 CARDIAC CATH PLUG FROM SURGERY. 2 D& C. 2013 [facility]-Y GASTIC BY PASS SURGERY CLIPS METAL Hx Anesthesia Reactions: No Infectious Disease History: No Infectious Disease History: Denies: Traveled Outside the [place] in Last 30 Days - Family History Known Family History: Positive: Cardiac Disease, Other - pos: BREAST CA, aunt Negative: Hypertension, Diabetes - Social History Alcohol Use: Occasionally Alcohol Amount: SOCIALLY Hx Substance Use: No Substance Use Type: Reports: None Hx Tobacco Use: Yes Smoking Status (MU): Never Smoked Tobacco Have You Smoked in the Last Year: No Review of Systems Positive: Fever Positive: Chest Pain Positive: Shortness Of Breath, Cough Positive: Nausea Positive: Arthralgia Positive: Syncope - NEAR All Other Systems Reviewed And Are Negative: Yes Physical Exam - Summary Physical Exam Summary: Appearance: Ill-appearing, Slender, lying in bed comfortably; vital signs notable for hypotension but good pulse rate and pulse oximetry. Skin: Warm, dry, no obvious rash Eyes: sclera anicteric, no conjunctival pallor HENT: mucous membranes moist, pharynx appears normal Neck: Supple, nontender Respiratory: Mild respiratory distress, mild tachypnea, coarse crackles of the left lower lung field. Cardiovascular: Normal S1, S2. No murmurs. Normal distal pulses in tibial and radial bilaterally. Abdomen: Soft, nontender, normal active bowel sounds present Musculoskeletal: Normal, Strength/ROM Intact Neurological: A&Ox3, awake and alert, mentation is normal, speech is fluent and appropriate Psychiatric: affect is normal, does not appear anxious or depressed Triage Information Reviewed: Yes Vital Signs On Initial Exam: Initial Vitals Temp Pulse Resp BP Pulse Ox 97.3 F 84 16 82/53 99 06/28/19 02:26 06/28/19 02:26 06/28/19 02:26 06/28/19 02:26 06/28/19 02:26 Vital Signs Reviewed: Yes Procedures - Sedation Patient Received Moderate/Deep Sedation with Procedure: No Diagnostics - Vital Signs Vital Signs Temp Pulse Resp BP Pulse Ox 06/28/19 02:26 97.3 F 84 16 82/53 99 - Laboratory Result Diagrams: 06/29/19 05:44 06/29/19 05:44 Lab Statement: Any lab studies that have been ordered have been reviewed, and results considered in the medical decision making process. - Ultrasound BEDSIDE US Ultrasound Interpretation Completed By: ED Physician Summary of Ultrasound Findings: No pericardial effusion; dynamic air bronchograms, left PNA noted. - EKG 0327 Summary of EKG Findings: NSR at 80 BPM, P waves, QRS complex, and T waves are within normal limits, T waves and intervals are normal, no ischemic changes. This is a normal EKG. ED physician has reviewed and interpreted this EKG. Complex Multi-Symp Course/Dx Course Of Treatment: Patient is a 49 y/o F presenting to [facility] with complaints of left-sided chest pain, SOB, cough, fever, arthalgia, nausea, and feeling near -syncopal. She states that she awoke with left-sided chest pain, SOB, cough, arthalgia, fever, nausea at around 0300 on 06/27/19. Patient was evaluated at [facility]; CXR showed PNA, patient was discharged to home with antibiotics. Since discharge, she states that her pain has been unchanged in severity. Pain is located at left lateral and left anterior chest area. Patient reports a fever of 102 F. She notes that she has been feeling near-syncopal as well. She states that she has been taking ibuprofen and Tylenol but has been trying to limit this due to bariatric surgery history. She reports Hx of poly dermatoyositis which has led to endocarditis and pericarditis previously. Physical exam showed mild respiratory distress, mild tachypnea, coarse crackles of the left lower lung field. Patient is ill-appearing and hypotensive but with good pulse oximetry and pulse rate. Bedside US showed no pericardial effusion, but air bronchograms, left PNA was noted. NSR at 80 BPM, P waves, QRS complex, and T waves are within normal limits, T waves and intervals are normal, no ischemic changes. During ED course, patient was given fluids. Patient's case was discussed with Dr. Martinez, Dr. Martinez accepts for admission. Bloodwork was obtained, abnormal values include RBC 3.41, Hgb 9.5, Hct 28, RDW 16, plt count 127, absolute lymphs 0.1, INR 1.67, potassium 3.3, BUN/creatinine ratio 23.8, glucose 109, calcium 7.8, total protein 4.9, globulin 1.7. - Diagnoses Provider Diagnoses: Pneumonia involving left lung - Physician Notifications Discussed Care Of Patient With: Yamil Martinez Time Discussed With Above Provider: 03:03 Instructed by Provider To: Other - Patient's case was discussed with Dr. Martinez , Dr. Martinez accepts for admission. - Critical Care Time Critical Care Time: 30-74 min - pneumonia with sepsis and hypotension requiring IVF resuscitation and IV antibiotics Discharge ED - Sign-Out/Discharge Documenting (check all that apply): Patient Departure - ADMIT - Discharge Plan Condition: Good Disposition: ADMITTED TO [facility] - Billing Disposition and Condition Condition: GOOD Disposition: Admitted to [facility] - Attestation Statements Document Initiated by Scribe: Yes Documenting Scribe: TC WARE Provider For Whom Scribe is Documenting (Include Credential): TIM FLORENTINO MD Scribe Attestation: TC Sanon, scribed for TIM FLORENTINO MD on 07/02/19 at 0207. Scribe Documentation Reviewed: Yes Provider Attestation: The documentation as recorded by the scribe, TC WARE accurately reflects the service I personally performed and the decisions made by me, TIM FLORENTINO MD Status of Scribe Document: Viewed
[2019-06-28 03:35] LABS: ABS Lymphocytes 0.1 10^3/ul (1.0-4.8); ABS Monocytes 0.3 10^3/ul (0-0.8); ABS Neutrophils 5.1 10^3/ul (1.5-7.7); Eosinophil % 0.1 %; Hematocrit 28 % (35-47); Hemoglobin 9.5 g/dL (12.0-16.0); Lymphocyte % 2.4 %; Mean Corpuscular HGB Conc 34 g/dL (31-36); Mean Corpuscular Hemoglobin 28 pg (27-31); Mean Corpuscular Volume 82 fL (80-97); Mean Platelet Volume 8.3 fL (7.4-10.4); Nucleated Red Blood Cells % 0.1; Platelet Count 127 10^3/uL (150-450); Red Blood Count 3.41 10^6 /uL (3.70-4.87); Red Cell Distribution Width 16 % (10-15); White Blood Count 5.5 10^3/uL (3.5-10.8)
[2019-06-28 03:40] LABS: Activated Partial Thrombo Time 31.9 seconds (26.0-38.0); INR 1.67 (0.82-1.09)
[2019-06-28 03:50] LABS: ALT 14 U/L (7-52); AST 19 U/L (13-39); Albumin 3.2 g/dL (3.2-5.2); Albumin/Globulin Ratio 1.9 (1-3); Alkaline Phosphatase 41 U/L (34-104); Anion Gap 7 mmol/L (2-11); BUN/Creatinine Ratio 23.8 (8-20); Blood Urea Nitrogen 19 mg/dL (6-24); CO2 Carbon Dioxide 24 mmol/L (22-32); Calcium 7.8 mg/dL (8.6-10.3); Chloride 104 mmol/L (101-111); EGFR African American 91.9 (>60); EGFR Non-African American 75.9 (>60); Globulin 1.7 g/dL (2-4); Glucose 109 mg/dL (70-100); Potassium 3.3 mmol/L (3.5-5.0); Sodium 135 mmol/L (135-145); Total Protein 4.9 g/dL (6.4-8.9)
[2019-06-28 03:52] LABS: Troponin I 0.01 ng/mL (<0.03)
[2019-06-28] MEDS ORDERED: Albuterol/Ipratropium NEB.SOL* Albuterol 2.5 MG/Ipratropium 0.5 MG 3 ML INH PRN (03:52)
[2019-06-28] MEDS ORDERED: Ondansetron INJ* 2 MG/ML VIAL IV PRN (03:52)
[2019-06-28] MEDS ORDERED: ALPRAZolam TAB* 0.5 MG PO PRN (03:55)
[2019-06-28] MEDS ORDERED: oxyCODONE/Acetamin 5/325 MG* TAB PO PRN (03:55)
[2019-06-28] MEDS ORDERED: Potassium Chlor TAB* 20 MEQ TAB.ER PO ONE (04:00)
[2019-06-28] MEDS ORDERED: cefTRIAXone VIAL(*) 1,000 MG VIAL ONE (04:01)
[2019-06-28] MEDS ORDERED: Morphine 4 MG/ML VIAL (1 ml) 4 MG/ML VIAL ONE (04:04)
[2019-06-28] MEDS: Morphine INJ* 4 MG/ML 1 ML SYRINGE (NEW SYRINGE VERSION) IV PRN ×5 (04:10→23:09)
[2019-06-28 04:13] LABS: Corrected Retic Count 0.7 % (0.5-1.5); Hematocrit for Retic CNT 28 % (35-47); Immature Retic Fraction 0.43; RBC Retic Count 3.42 10^6/uL (3.70-4.87)
[2019-06-28 04:35] LABS: LDH 135 U/L (140-271); Total Iron Binding Capacity 339 mcg/dL (250-450); Transferrin 242 mg/dL (203-362)
[2019-06-28 04:38] LABS: Magnesium 1.2 mg/dL (1.9-2.7)
[2019-06-28 04:48] LABS: C Reactive Protein 191.82 mg/L (<8.01)
[2019-06-28] MEDS: NS 0.9% 1000 ML** 1,000 ML IV SCH ×2 (04:52→15:48)
[2019-06-28 04:56] LABS: Ferritin 39.7 ng/mL (11-307)
[2019-06-28 05:02] LABS: % Iron Saturation 6 % (15-55); Iron < 20 ug/dL (50-212)
[2019-06-28 05:39] LABS: Erythrocyte Sed Rate 10 mm/Hr (0-29)
[2019-06-28 06:29] LABS: ABS Lymphocytes 0.2 10^3/ul (1.0-4.8); ABS Monocytes 0.3 10^3/ul (0-0.8); ABS Neutrophils 6.4 10^3/ul (1.5-7.7); Hematocrit 28 % (35-47); Hemoglobin 9.2 g/dL (12.0-16.0); Lymphocyte % 2.2 %; Mean Corpuscular HGB Conc 34 g/dL (31-36); Mean Corpuscular Hemoglobin 28 pg (27-31); Mean Corpuscular Volume 82 fL (80-97); Mean Platelet Volume 7.9 fL (7.4-10.4); Platelet Count 127 10^3/uL (150-450); Red Blood Count 3.35 10^6 /uL (3.70-4.87); Red Cell Distribution Width 16 % (10-15); White Blood Count 6.9 10^3/uL (3.5-10.8)
[2019-06-28 06:35] LABS: INR 1.77 (0.82-1.09)
[2019-06-28 06:46] LABS: BUN/Creatinine Ratio 26.8 (8-20); Calcium 7.8 mg/dL (8.6-10.3); EGFR African American 105.4 (>60); EGFR Non-African American 87.1 (>60); Potassium 3.7 mmol/L (3.5-5.0)
[2019-06-28 06:49] LABS: Troponin I 0.02 ng/mL (<0.03)
[2019-06-28] MEDS: CMCS:Simvastatin TAB(NF) 10 MG TAB PO SCH (07:39)
[2019-06-28] MEDS: Pantoprazole TAB * 40 MG TAB PO SCH (07:39)
[2019-06-28] MEDS: Escitalopram * 20 MG TABLET PO SCH (07:39)
[2019-06-28] MEDS: Azithromycin 500 mg/250 ml NS 500 MG/250 ML BAG IVPB SCH (08:23)
[2019-06-28] MEDS ORDERED: cefTRIAXone VIAL(*) 1,000 MG in NS 0.9% 50 ML* 50 ML IVPB SCH ×2 (09:00→21:00)
[2019-06-28 09:13] LABS: Magnesium 1.2 mg/dL (1.9-2.7)
[2019-06-28] MEDS ORDERED: Magnesium Sulf 4 GM/100 ML IV* 4,000 MG/100 ML BAG IVPB ONE (09:20)
--- NOTE | 2019-06-28 09:47 | ECHO ---
*[facility]* [place] [address] Fax #: [phone] Transthoracic Echocardiogram Patient: Luz Naylor : 1970 Study Date: 06/28/2019 Age: 49 Gender: F HR: 84 bpm Height: 62 in /157.5 cm BSA: 1.52 m^2 Weight: 115.8 lb /52.6 kg BMI: 21.2 kg/m^2 *Strap Buckler: * Marylu Mac [facility] *Referring Physician: * Tony JacksonReading Physician: * Damon Gonzalez MD Indications: Chest Pain, unspecified. History: Pericardial effusion. Risk factors: Hypertension. Dyslipidemia. Conclusions Summary: - Left ventricle: Systolic function is normal. The estimated ejection fraction is 55-60%. Wall motion is normal; there are no regional wall motion abnormalities. - Right ventricle: Systolic function is normal. - Mitral valve: There is trace regurgitation. - Aortic valve: There is no evidence of stenosis. - Tricuspid valve: There is mild regurgitation. - Pericardium, extracardiac: There is no significant pericardial effusion. - Pulmonary arteries: Systolic pressure is within the normal range. - Compared to study of 11/24/16, the left ventricle function is the same. No pericardial effusion is seen on this study. Study data: Transthoracic echocardiogram. Procedure: Transthoracic echocardiography was performed. Image quality was good. Complete 2D, spectral Doppler, and color flow Doppler. Location: Bedside. Patient status: Inpatient. Patient room number: 446. Rhythm: Normal sinus rhythm. Findings Left ventricle: The cavity size is normal. Wall thickness is normal. Systolic function is normal. The estimated ejection fraction is 55-60%. Wall motion is normal; there are no regional wall motion abnormalities. Left ventricular diastolic function parameters are normal. Right ventricle: The cavity size is normal. Systolic function is normal. Left atrium: The atrium is dilated. Right atrium: The atrium is normal in size. Atrial septum: The atrial septum appears aneurysmal. Mitral valve: The leaflets are normal thickness. There is no evidence of stenosis. There is trace regurgitation. Aortic valve: The leaflets are mildly thickened. There is no evidence of stenosis. There is no significant regurgitation. Tricuspid valve: The leaflets are normal thickness. There is no evidence of stenosis. There is mild regurgitation. Pulmonic valve: The leaflets are normal thickness. There is no evidence of stenosis. There is trace regurgitation. Aorta: The aortic root appears normal. The aortic arch appears normal. Pericardium: There is no significant pericardial effusion. Pulmonary arteries: Systolic pressure is within the normal range. Systemic veins: Inferior vena cava: The vessel is normal in size. Respirophasic changes in dimension are absent. Abdomen: Ascites is noted in left upper quadrant. Measurements Left ventricle Value Ref Aortic valve Value Ref RODOLFO, LAX 4.0 cm 3.8 - 5.2 Juan F diam, ED 2.0 cm ----- ESD, LAX 2.4 cm 2.2 - 3.5 Juan F diam/bsa, ED 1.3 cm/m^2 ----- FS, LAX 40 % 27 - 45 Peak v, S 1.4 m/sec ----- PW, ED, LAX (H) 1.0 cm 0.6 - 0.9 VTI, S 28.3 cm ----- E', lat juanf , TDI (L) 8.0 cm/sec >=10.0 Mean grad, S 4.1 mm Hg -- --- E/e', lat juan f, 14 Peak grad, S 8.0 mm Hg ----- TDI E', med juan f, TDI 11.0 cm/sec >=7.0 Mitral valve Value Re f E/e', med juan f, 10 Peak E 1.14 m/sec ----- TDI Peak A 0.75 m/sec ----- E', avg, TDI 9.5 cm/sec Decel time 230 ms ----- E/e', avg, TDI 12 <=14 Peak grad, D 5.2 mm Hg -- --- Peak E/A ratio 1.52 ----- LVOT Value Ref Peak chikis, S 1.22 m/sec Pulmonic valve Value Ref VTI, S 24.3 cm Peak v, S 0.68 m/sec ----- Peak grad, S 6 mm Hg Peak grad, S 1.9 mm Hg ----- Mean grad, S 3 mm Hg Tricuspid valve Value Ref Ventricular septum Value Ref Peak grad, D 25.0 mm Hg ----- IVS, ED 0.8 cm 0.6 - 0.9 TR peak v 2.5 m/sec <=2.8 Right ventricle Value Ref Aortic root Value Ref RODOLFO, LAX 2.7 cm Root diam 3.1 cm <3.8 RODOLFO major ax, A4C (L) 3.0 cm 5.9 - 8.3 Pressure, S 28 mm Hg Ascending aorta Value Ref AAo AP diam, S 2.9 cm ----- Left atrium Value Ref AAo AP diam/bsa, S 1.9 cm/m^2 ----- AP dim, ES 3.01 cm 2.70 - 3.80 Aortic arch Value Ref ML dim, A4C 4.3 cm Arch diam 2.2 cm ----- SI dim, A4C 4.5 cm Vol/bsa, ES, 2-p (H) 51 ml/m^2 16 - 34 Pulmonary artery Value Ref Pressure, S 26.2 mm Hg ----- Right atrium Value Ref SI dim, ES 4.6 cm 3.4 - 5.3 Inferior vena cava Value Ref ML dim, ES, A4C 3.3 cm 2.6 - 4.4 Diam 2.0 cm ----- Estimated RAP 3 mm Hg Legend: (L) and (H) holden values outside specified reference range. Prepared and electronically signed by Damon Gonzalez MD 06/28/2019 09:47
[2019-06-28 09:49] LABS: Troponin I 0.03 ng/mL (<0.03)
--- NOTE | 2019-06-28 10:26 | HP ---
CC: Dr. Warren * HISTORY AND PHYSICAL: DATE OF ADMISSION: 06/28/19 PRIMARY CARE PROVIDER: Dr. Warren. ATTENDING PHYSICIAN WHILE IN THE HOSPITAL: Dr. Martinez * (report dictated by Tony Jackson NP). CHIEF COMPLAINT: 1. Lightheadedness. 2. Cough. 3. Chest pain. 4. Not feeling well. HISTORY OF PRESENT ILLNESS: Ms. Naylor is a 49-year-old female patient with a history of myopericarditis, rhabdomyolysis, hypertension, hyperlipidemia, anxiety, depression, dermatomyositis, and a history of a pericardial effusion. She states that around yesterday at 3 a.m., she started noticing that she was having chest discomfort, particularly on the left side, worse with cough, worse with deep breath and positional in nature, described as a sharp, stabbing pain. She felt like she had pulled a muscle. She had no URI type symptoms prior to this. She did note that her daughter was sick. She felt like she was having hot and cold episodes, felt chilled at times. She felt fatigued and tired. She was concerned because of the chest discomfort. She went to actually urgent care initially, [facility]. They were concerned because of the chest pain and sent her to the ER on 06/27/19 around 11 o'clock. She was evaluated here, diagnosed with pneumonia. She was sent home, given a low CURB-65 score. Unfortunately though, throughout the night tonight, the pain is progressively becoming worse. She spiked a fever of 102. She felt lightheaded. She felt like she was going to faint. She only had george sumit today for any type of fluid intake. She tried standing up, but she felt lightheaded, felt like she was going to pass out, she did not pass out though. She was stating again the chest pain was getting worse. She was concerned because she was spiking a fever again. She talked to her and wanted to come in to the ER again because she felt like she was not improving. She did not pass out. She denied having any nausea, vomiting. No urinary symptoms and again, no congestion, no cough, no recent travel, no abdominal pain. Given the new symptom, she came in to the ER. She was noted to be hypotensive on arrival. Because of these findings, we were asked to evaluate for admission. PAST MEDICAL HISTORY: Significant for: 1. Myopericarditis. 2. Rhabdomyolysis. 3. Hypertension. 4. Hyperlipidemia. 5. Anxiety. 6. Depression. 7. Dermatomyositis. 8. History of pericardial effusion. MEDICATIONS: Home meds according to the list include: 1. Plaquenil, she takes 400 mg at bedtime. 2. Triamcinolone cream 1 application topically t.i.d. as needed. 3. Lexapro 20 mg daily. 4. Prilosec 20 mg daily. 5. B12 3000 mcg subcu monthly. 6. Vantin 200 mg p.o. every 12 hours. 7. Xanax 1 tab every day as needed. 8. Zocor 10 mg daily. 9. Doxycycline 100 mg p.o. twice a day. 10. Percocet 1 to 2 tabs every 4 hours as needed. ALLERGIES TO MEDICATIONS: Include no known drug allergies. PAST SURGICAL HISTORY: 1. She has had heart catheterization. 2. Devin-en-Y. 3. D and C. FAMILY HISTORY: Her mother had Parkinson's, she is now . Father had a history of hypertension and hyperlipidemia. SOCIAL HISTORY: She does not smoke. She occasionally drinks alcohol. 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 Surrogate decision maker is her . REVIEW OF SYSTEMS: Again, there is a documented fever when she felt here. Her temperature was 102. There was no significant weight change. No double vision. No ear discharge. She denied any rhinorrhea. No sore throat. No thyroid enlargement. There was chest pain per my HPI. No orthopnea. No nocturnal dyspnea. There was no abdominal pain. No nausea, no vomiting. No dysuria, no frequency. There was no seizure, no loss of consciousness. Review of 14 systems completed, all others negative. PHYSICAL EXAMINATION GENERAL: At this time, Ms. Naylor is a 49-year-old female patient, she is sitting in the ED stretcher, she does not appear to be in any acute distress. VITAL SIGNS: Blood pressure initially when she presented was 82/53, it is now 98/64; pulse 77; respirations 23; O2 sat 98%; temperature 97.3, when she was discharged from the ER earlier today, her temperature was 101.3. HEENT: Head: Atraumatic and normocephalic. Eyes: EOMs are intact. Sclerae anicteric and not pale. Throat: Oral mucosa appears to be dry. No oropharyngeal erythema. NECK: Supple. LUNGS: She had crackles in the left lower lobe and decreased breath sounds. Equal diaphragmatic expansion. HEART: Heart sounds S1, S2. She had a regular rate and rhythm. No murmurs, rubs, or gallops. ABDOMEN: Soft, flat, nontender. Bowel sounds were present. EXTREMITIES: Pulses were 2+ throughout. She had no peripheral edema. She is moving all 4 extremities with 5/5 strength. NEUROLOGICAL: She is awake. She is alert. She is oriented x3. Tongue midline. Cullet Crusher were equal. She had no gross focal deficits. SKIN: Grossly intact. DIAGNOSTIC STUDIES/LAB DATA: The labs today, WBC 5.5, RBC of 3.42; her hemoglobin is 9.5, when she was here at 11 this morning, it was 11.7; hematocrit 28; platelet count 127. INR was 1.67. Her sodium was 135, potassium 3.3, chloride of 104, bicarb 24, BUN 19, creatinine 0.8, glucose 109. Her lactic is 1.4. Calcium 7.8. Troponin 0.01. AST 19, ALT 14, total bili 0.4. Albumin 3.2. Serology was negative for flu earlier. She had a chest x-ray when she presented, which did show a left lower lobe airspace opacification, could be technical service representative of pneumonia in the correct clinical state. She did have a repeat EKG obtained today, which showed a normal sinus rhythm, subtle ST depression in V4, no T wave inversions, no ST elevation was noted, rate of 80. Old medical records were reviewed. ASSESSMENT AND PLAN: Ms. Naylor is a 49-year-old female patient with a history of multiple medical problems, coming in to the ED today with complaints of left- sided chest pain, fever with chest x-ray showing pneumonia. She will be admitted under inpatient status for: 1. Pneumonia. Fortunately at this point, she is not exhibiting signs of sepsis. She is slightly tachypneic in the low 20s; however, the heart rate is stable. She does not have a fever at this point; she did have one earlier today. Going forward, I am going to go ahead and get blood cultures. She did get a 30 cc per kg bolus. She received antibiotics less than 12 hours ago. I am going to go ahead and put her on Rocephin and azithromycin to start this morning. Her lactic was stable. I will try to get a sputum culture if possible. We will also get a legionella antigen and Strep pneumo antigen. She was tested for flu. She had no recent travel. I have also ordered p.r.n. nebulizers. We can touch base with Dr. Moore tomorrow to determine if we should continue to hold the Plaquenil in the setting of acute illness. She was hypotensive, but she did respond to fluids. 2. Lightheadedness. Again with her history of pericardial effusion, I am going to place her on telemetry. I will check an echocardiogram. This could be related to dehydration. All she had today was a bottle of george sumit. I will hydrate her. Her blood pressure is improving. We will follow this closely. 3. Chest pain. Again, this is probably pleuritic in nature. Her D-dimer was negative at her last visit, about 12 hours ago. So, at this point, I suspect this is probably pleuritic in nature secondary to pneumonia. We will continue with supportive care and I have ordered p.r.n. pain medications. 4. Worsening anemia. She has a history of iron deficiency anemia. I will check her labs. She is not reporting any dark or tarry stools. I will get a stool for occult blood and we will continue to follow this. 5. Hypokalemia. I will replace this. 6. History of myopericarditis. Again, EKG looks stable. I will be getting an echo. 7. Hypertension and hyperlipidemia. At this point, not active issues. She can follow with primary. 8. Anxiety and depression. Continue supportive care. 9. History of dermatomyositis. We will need to discuss with her notch machine operator about holding the Plaquenil in the setting of acute illness. 10. History of pericardial effusion. Given the lightheadedness and the symptoms of chest pain, I will be checking an echo. She will also be placed on telemetry. 11. DVT prophylaxis: She is moderate risk; however, given the decreasing H and H, I am going to hold on giving her any heparin or Lovenox. I will place her on SCDs. 12. Code status: Full code. 13. Fluids, electrolytes, and nutrition. She can have a regular diet. TIME SPENT: Time spent on the admission 60 minutes, greater than half the time spent [id number] with the patient obtaining my history and physical; other half time spent going over the plan of care with the patient and implementing plan of care. I did discuss the plan of care with my attending, Dr. Martinez; he is in agreement. TONY JACKSON NP [id number]/CPS #: [id number] JLUIS
[2019-06-28 12:36] LABS: Urine Appearance Clear; Urine Bilirubin Negative (Negative); Urine Blood Negative (Negative); Urine Color Yellow; Urine Glucose Negative (Negative); Urine Ketones Negative (Negative); Urine Nitrite Negative (Negative); Urine Protein Negative (Negative); Urine Specific Gravity 1.018 (1.010-1.030); Urine Urobilinogen Negative (Negative)
[2019-06-28 12:51] LABS: Troponin I 0.03 ng/mL (<0.03)
--- NOTE | 2019-06-28 13:00 | PN ---
Subjective Date of Service: 06/28/19 Interval History: Ms. Naylor presented with cough, fever with Tmax 102, since resolved. She c/o pleruitic L chest wall pain. She reports nausea with retching, which has since resolved. She believes that LH is improving with IVF, but she is still hypotensive and LH with ambulation. She reports HERNÁNDEZ, stating she is unable to take deep breaths, due to pleuritic CP. She has no other complaints today. Objective Active Medications: Acetaminophen (Tylenol Tab*) 650 mg PO Q4H PRN PRN Reason: PAIN - MILD Albuterol/Ipratropium (Duoneb (Albuterol 2.5 Mg/Ipratropium 0.5 Mg)) 1 neb INH Q4H PRN PRN Reason: SOB/WHEEZING Alprazolam (Xanax Tab*) 0.5 mg PO DAILY PRN PRN Reason: ANXIETY Last Admin: 06/28/19 07:42 Dose: 0.5 mg Escitalopram Oxalate (Lexapro *) 20 mg PO QAM [facility] Last Admin: 06/28/19 07:39 Dose: 20 mg Azithromycin (Zithromax 500 Mg/250 Ml) 500 mg in 250 mls @ 250 mls/hr IVPB Q24H [facility] Last Admin: 06/28/19 08:23 Dose: 250 mls/hr Sodium Chloride (Ns 0.9% 1000 Ml) 1,000 mls @ 125 mls/hr IV PER RATE [facility] Last Admin: 06/28/19 04:52 Dose: 125 mls/hr Ceftriaxone Sodium 1,000 mg/ (Sodium Chloride) 50 mls @ 200 mls/hr IVPB Q24H [facility] Morphine Sulfate (Morphine Inj (Syringe)*) 4 mg IV Q4H PRN PRN Reason: PAIN - SEVERE Last Admin: 06/28/19 08:51 Dose: 4 mg Ondansetron HCl (Zofran Inj*) 4 mg IV Q6H PRN PRN Reason: NAUSEA Oxycodone/Acetaminophen (Percocet 5/325 Tab*) 1 tab PO Q4H PRN PRN Reason: PAIN - SEVERE Pantoprazole Sodium (Protonix Tab*) 40 mg PO DAILY [facility] Last Admin: 06/28/19 07:39 Dose: 40 mg Simvastatin (Zocor(Nf)) 10 mg PO DAILY [facility] Last Admin: 06/28/19 07:39 Dose: Not Given Vital Signs: Temp Pulse Resp BP Pulse Ox 98.5 F 69 16 96/51 99 06/28/19 12:27 06/28/19 12:27 06/28/19 12:27 06/28/19 12:27 06/28/19 12:27 Oxygen Devices in Use Now: None Appearance: Ms. Naylor is an middle-aged white female who is sitting up in bed. She appears mildly ill, but in no acute distress. Eyes: No Scleral Icterus, PERRLA Ears/Nose/Mouth/Throat: NL Teeth, Lips, Gums, Clear Oropharnyx, Mucous Membranes Moist Neck: NL Appearance and Movements; NL JVP, Trachea Midline Respiratory: Symmetrical Chest Expansion and Respiratory Effort, - - L lung with rhonchi at the base; otherwise lungs clear to auscultation Cardiovascular: NL Sounds; No Murmurs; No JVD, RRR, No Edema Abdominal: NL Sounds; No Tenderness; No Distention, No Hepatosplenomegaly Extremities: No Edema, No Clubbing, Cyanosis Neurological: Alert and Oriented x 3 Result Diagrams: 06/28/19 06:19 06/28/19 06:19 Assess/Plan/Problems-Billing Assessment: Ms. Naylor is a 49 yof with PMHx myopericarditis, dermatomyositis, HTN, HLD who presents with CP, fever, LH and was found to have LLL pna and hypotension. - Patient Problems (1) LLL pneumonia Comment: -LLL pneumonia noted on CXR -urine positive for S. pneumo, negative for Legionella -BC pending -afebrile without leukocytosis -VS stable, except mild hypotension -continue ceftriaxone, azithromycin (2) Chest pain Comment: -pt reports L lateral chest wall pain that is TTP and exacerbated by deep breathing consistent with pleuritic chest pain -Echo EF 55-60% without RWMA, pericardial effusion -tele: NSR -continue pain medication (3) Lightheadedness Comment: -pt reports LH, but notes that is has improved with IVF -negative for orthostasis -1L fluid bolus ordered for now -continue orthostatics (4) Anemia Comment: -worsening, possibly worsened by infection -FOBT ordered -iron studies, B12, folate ordered; patient has low iron -LDH WNL -start IV iron (5) Electrolyte abnormality Comment: -continue to monitor and replete (6) GERD (gastroesophageal reflux disease) Comment: -pantoprazole (7) Depression Comment: -escitalopram, alprazolam as at home (8) DVT prophylaxis Comment: -ambulation, SCDs (9) Full code status Status and Disposition: Inpatient. Discharge when stable.
[2019-06-28] MEDS ORDERED: NS 0.9% 1000 ML** 1,000 ML IV ONE (13:19)
[2019-06-28] MEDS: Acetaminophen TAB* 325 MG PO PRN ×3 (14:43→23:08)
[2019-06-28] MEDS: Iron Sucrose* 200 MG in NS 0.9% 100 ML* 100 ML IVPB SCH (14:43)
[2019-06-28 16:24] LABS: Troponin I 0.04 ng/mL (<0.03)
[2019-06-28 19:12] LABS: Troponin I 0.05 ng/mL (<0.03)
[2019-06-28 21:57] LABS: Troponin I 0.04 ng/mL (<0.03)
[2019-06-29] MEDS: Acetaminophen TAB* 325 MG PO PRN ×2 (05:57→12:21)
[2019-06-29 05:59] LABS: ABS Eosinophils 0.1 10^3/ul (0-0.6); ABS Lymphocytes 0.6 10^3/ul (1.0-4.8); ABS Monocytes 0.2 10^3/ul (0-0.8); ABS Neutrophils 8.2 10^3/ul (1.5-7.7); Eosinophil % 1.5 %; Hematocrit 26 % (35-47); Hemoglobin 8.9 g/dL (12.0-16.0); Lymphocyte % 6.6 %; Mean Corpuscular HGB Conc 34 g/dL (31-36); Mean Corpuscular Hemoglobin 28 pg (27-31); Mean Corpuscular Volume 82 fL (80-97); Mean Platelet Volume 7.8 fL (7.4-10.4); Platelet Count 134 10^3/uL (150-450); Red Blood Count 3.19 10^6 /uL (3.70-4.87); Red Cell Distribution Width 16 % (10-15); White Blood Count 9.2 10^3/uL (3.5-10.8)
[2019-06-29 06:26] LABS: BUN/Creatinine Ratio 20.4 (8-20); EGFR African American 144.6 (>60); EGFR Non-African American 119.5 (>60); Magnesium 1.9 mg/dL (1.9-2.7); Potassium 4.1 mmol/L (3.5-5.0)
[2019-06-29] MEDS: Pantoprazole TAB * 40 MG TAB PO SCH (09:45)
[2019-06-29] MEDS: CMCS:Simvastatin TAB(NF) 10 MG TAB PO SCH (09:45)
[2019-06-29] MEDS: Escitalopram * 20 MG TABLET PO SCH (09:45)
[2019-06-29] MEDS: Iron Sucrose* 200 MG in NS 0.9% 100 ML* 100 ML IVPB SCH (09:45)
[2019-06-29] MEDS: Azithromycin 500 mg/250 ml NS 500 MG/250 ML BAG IVPB SCH (10:54)
[2019-06-29 11:46] VITALS: BP 123/64
--- NOTE | 2019-06-30 10:27 | DS ---
CC: Fredi Warren MD; Jamir Moore MD * DISCHARGE SUMMARY: DATE OF ADMISSION: 06/28/19 DATE OF DISCHARGE: 06/29/19 PRIMARY CARE PROVIDER: Fredi Warren MD. OTHER PROVIDER: Jamir Moore MD. ATTENDING PHYSICIAN: Lise Ivy MD * (dictated by VIRGILIO Reddy). PRIMARY DIAGNOSIS: 1. Pneumococcal pneumonia. 2. Musculoskeletal chest pain. 3. Elevated troponin related to demand ischemia. 4. Dehydration. SECONDARY DIAGNOSES: 1. Hypertension. 2. Hyperlipidemia. 3. Dermatomyositis. 4. Depression. 5. Anxiety. 6. History of myopericarditis. 7. History of rhabdomyolysis. 8. History of pericardial effusion. STUDIES WHILE IN THE HOSPITAL: 1. Chest x-ray, impression: Multifocal consolidation. 2. Transthoracic echocardiogram, summary: LV systolic function normal. Estimated EF 55% to 60%. Wall motion normal. There are no regional wall motion abnormalities. RV systolic function normal. Trace MR. No evidence of . Mild TR. No significant pericardial effusion. Pulmonary artery systolic pressure within normal range. DISCHARGE MEDICATIONS: Home medications: 1. Alprazolam 0.5 mg p.o. daily p.r.n. 2. Cyanocobalamin 3000 mcg subcu monthly. 3. Escitalopram 20 mg p.o. daily. 4. Hydrochloroquine 400 mg p.o. at bedtime, please hold this medication at this time until further instructions received from [facility] or Dr. Moore. 5. Omeprazole 20 mg p.o. daily. 6. Oxycodone/acetaminophen 5/325 one to two tabs p.o. q.4 hours p.r.n., MDD 12 tabs. 7. Simvastatin 10 mg p.o. daily. 8. Triamcinolone 1 application topically t.i.d. p.r.n. New home medications: 1. Azithromycin 250 mg p.o. daily x3 days starting tomorrow. 2. Cefpodoxime 200 mg p.o. q.12 hours times total of 10 days. HISTORY OF PRESENT ILLNESS/HOSPITAL COURSE: Ms. Naylor is a 49-year-old female with past medical history of hypertension, hyperlipidemia, dermatomyositis, history of pericardial effusion, myopericarditis, and rhabdomyolysis, who presented to the ER on 06/28/19 with complaints of cough, chest pain, general malaise, and lightheadedness, and it is important to note that the day prior she was sent home on cefpodoxime and azithromycin as she did not meet admission criteria. The night prior to admission she had a T-max of 102, which prompted her to seek followup at the ER. The patient was admitted to the hospital. Urine for legionella was negative, but urine was positive for Strep pneumoniae. The patient was started on ceftriaxone and azithromycin upon arrival and continued throughout her stay. She was then sent home on cefpodoxime and azithromycin to complete a 5-day course of azithromycin and a 10-day course of cefpodoxime. Throughout the patient's stay, she did have fevers with a T-max of 101.8 the night prior to discharge. We discussed her spending 1 more night for observation to ensure that she remained afebrile overnight but the patient was disinterested. She has requested to leave stating that she feels much better. She denies cough and shortness of breath. Chest x-ray was obtained and revealed multifocal consolidation. Lactic acid was within normal limits. The patient was noted to be hypotensive without other signs of sepsis. The patient also complained of chest pain. She does have a history of myopericarditis and pericardial effusion. Her troponins were trended and were very mildly elevated throughout her stay with a peak of 0.05. An EKG was obtained and showed a rate of [address] elevation or depression. She did have a flat T-wave in aVL which is not new. An echocardiogram was obtained and revealed a preserved ejection fraction without diastolic dysfunction and no pericardial effusion. There was also no regional wall motion abnormalities. The patient's elevated troponin was suspected to be due to demand ischemia in the setting of left lower lobe pneumococcal pneumonia infection. No further workup is warranted, although she should follow with her primary care provider to discuss further recommendations and workup. The patient also complained of lightheadedness with ambulation. Again, she was hypotensive at admission. An echo again was unremarkable. The patient received IV fluids, which improved both her blood pressure and her symptoms. At the time of discharge, the patient denies dizziness, lightheadedness, presyncope, syncope. She ambulates the halls without difficulty. At the time of discharge, the patient denies chest pain, shortness of breath, cough, fever, chills, abdominal pain, nausea, vomiting, diarrhea, constipation, myalgias, arthralgias. Again, we discussed the patient staying for 1 more night of observation to ensure that she remains afebrile overnight, but she has declined and would like to be discharged. She assures me that she lives next door to her primary care provider who she is able to call on if she has any concerns and again is very eager to leave. PHYSICAL EXAMINATION: General: Ms. Naylor is a well-developed, well-nourished , average weight, middle-aged white woman who is seen standing in her room. She has pale complexion. She is breathing comfortably on room air without use of accessory muscles and appears to be in no acute distress. HEENT: PERRL. EOMI. Sclerae nonicteric without injection. Hearing is grossly intact. Oral mucous membranes are moist. There are no lesions. The pharynx is clear without exudate or erythema. Tongue is at midline. Palate elevates symmetrically. Cardiovascular: Regular rate and rhythm with S1, S2 present. No murmurs, rubs, clicks, or gallops. There is no JVD or peripheral edema. Pulmonary: Symmetrical chest expansion without use of accessory muscles. Right lung clear to auscultation. Left lung with basilar rhonchi. Abdomen: Bowel sounds in all quadrants. Soft, nontender to palpation. Neuro: The patient is awake. She is alert and oriented x3. She has a steady gait without impairment. DISCHARGE PLAN: Ms. Naylor will be discharged to home. CONDITION: Good. DIET: Heart healthy. ACTIVITY: As tolerated. MEDICATIONS: 1. Continue cefpodoxime 200 mg b.i.d., next dose 2100, complete a 10-day course (finish on 02/06/20). 2. Continue azithromycin 250 mg daily for 3 more days, next dose due tomorrow morning. 3. Hold Plaquenil for approximately 1 week and then restart as directed. EDUCATION: 1. Follow up with primary care provider in 4 to 7 days. 2. Follow up with Dr. Moore as scheduled. 3. Return to the ER or nearest hospital if you experience any return or worsening of symptoms, chest pain or discomfort, shortness of breath, high fevers, chills, night sweats, dizziness, lightheadedness, loss of consciousness , or any other worrisome signs or symptoms. This is a summarized report of a complex medical history and hospital stay. For further details, please see the entire medical record. TIME SPENT: Approximately 35 minutes was spent on this discharge, greater than half that time was spent [id number] with the patient discussing discharge plans and instructions. VIRGILIO FERNANDO [id number]/CPS #: [id number]
[2019-06-30 14:16] LABS: Methylmalonic Acid 0.34 nmol/mL (<=0.40)
== END 2019-06-29 15:15 | disposition home or self-care (01) | DRG 139 ==
LOC: ED 02:25 → MEDTELE 03:48
PROVIDERS: ADMIT Nurse Practitioner Family; ATTEND Internal Medicine
DX: J13 Pneumonia due to Streptococcus pneumoniae (principal); I24.8 Other forms of acute ischemic heart disease; M33.90 Dermatopolymyositis, unspecified, organ involvement unspecified; R07.89 Other chest pain; E86.0 Dehydration; I10 Essential (primary) hypertension; E78.5 Hyperlipidemia, unspecified; F32.9 Major depressive disorder, single episode, unspecified; F41.9 Anxiety disorder, unspecified; D50.9 Iron deficiency anemia, unspecified; E87.6 Hypokalemia; E78.00 Pure hypercholesterolemia, unspecified; G47.30 Sleep apnea, unspecified; K21.9 Gastro-esophageal reflux disease without esophagitis; I95.9 Hypotension, unspecified; Z98.84 Bariatric surgery status; Z79.899 Other long term (current) drug therapy
CPT/HCPCS: 36415; 71045; 80048; 80053; 81003; 82607; 82728; 83010; 83540; 83550; 83605; 83615; 83735; 83921; 84484; 85025; 85045; 85610; 85652; 85730; 86140; 87040; 87899; 93005; 93306; 99283; A9270-GY; J0456; J0696; J1756; J2270; J3475